=== PATIENT | female | born 1965 | race Caucasian/White ===

== ENCOUNTER 2018-01-25 15:24 | Inpatient (IN) ==
[2018-01-25] MEDS ORDERED: NS 1000 ML 1,000 ML ONE (16:28)
[2018-01-25] MEDS ORDERED: NS 1000 ML 1,000 ML IV ONE (16:46)
[2018-01-25 17:22] LABS: LACTIC ACID 0.9 mmol/L (0.4-2.0)
[2018-01-25 17:26] LABS: BLOOD UREA NITROGEN 11 mg/dL (7-18); CALCIUM 8.2 mg/dL (8.5-10.1); CARBON DIOXIDE 30.6 mmol/L (21-32); CHLORIDE 95 mmol/L (98-107); COR NA(FOR HYPERGLY) 139 mmol/L (136-145); CREATININE 0.83 mg/dL (0.55-1.02); SODIUM 134 mmol/L (136-145); TROPONIN I < 0.02 ng/mL (0-1.5); eGFR NON BLACK RACES > 60 (>60)
[2018-01-25 17:28] LABS: BASOPHILS # (AUTO) 0.1 X10^3/uL (0.0-0.1); BASOPHILS % (AUTO) 0.4 % (0.2-1.0); EOSINOPHILS # (AUTO) 0.2 x10^3/uL (0.0-0.2); EOSINOPHILS % (AUTO) 1.6 % (0.9-2.9); HEMATOCRIT 32.6 % (36.0-47.0); HEMOGLOBIN 10.4 g/dL (12.0-16.0); LYMPHOCYTES # (AUTO) 1.2 X10^3/uL (1.3-2.9); LYMPHOCYTES % (AUTO) 9.1 % (21.0-51.0); MEAN CORPUSCULAR HEMOGLOBIN 24.1 pg (27.0-34.0); MEAN CORPUSCULAR HGB CONC 31.9 g/dL (33.0-35.0); MEAN CORPUSCULAR VOLUME 75.4 fL (80.0-100.0); MEAN PLATELET VOLUME 7.8 fL (7.4-11.0); MONOCYTES # (AUTO) 0.5 x10^3/uL (0.3-0.8); NEUTROPHILS # (AUTO) 11.2 x10^3/uL (2.2-4.8); NEUTROPHILS % (AUTO) 84.9 % (42.0-75.0); PLATELET COUNT 471 X10^3/uL (150.0-450.0); RED BLOOD COUNT 4.33 X10^6/uL (3.5-5.4); WHITE BLOOD COUNT 13.2 X10^3/uL (3.6-10.0)
[2018-01-25 17:30] LABS: ALANINE AMINOTRANSFERASE 15 Units/L (12-78); ALBUMIN 2.1 g/dL (3.4-5.0); ALKALINE PHOSPHATASE 160 Units/L (46-116); ASPARTATE AMINO TRANSFERASE 28 Units/L (15-37); CKMB % 9.1 % (<4); COR CA(FOR HYPOALB) 9.7 mg/dL (8.5-10.1); CREATINE KINASE 11 Units/L (26-192); CREATINE KINASE MB < 1.0 ng/mL (0-4.0); TOTAL PROTEIN 7.9 g/dL (6.4-8.2)
--- NOTE | 2018-01-25 17:31 | DR.GENAD ---
HPI - PCP Primary Care Physician: BALBINA - HPI Comment HPI Comment: PAIN ASSOCIATED WITH WEAKNESS, SOB AND FEVER ON AND OFF. - Complaint/Symptoms Chief Complaint Doctors Comments: ABDOMINAL PAIN, RUQ LIVER CA/MAA, GENERALIZE WEAKNESS WORSE TIMES 2 DAYS. Chief Complaint:: FAMILY STATES PT IS UNABLE TO EAT OR DRINK. PATIENT HAS GENERALIZED PAIN. PATIENT CURRENTLY HAS LIVER CANCER. - Nurses notes reviewed Nurses Notes Review: Yes - Source History Provided: Patient - Mode of Arrival Mode of Arrival: Wheelchair - Timing Onset of Chief Complaint: 12/23/17 Came on: Gradually - Duration Duration: Constant Duration: Days - Severity Severity: Moderate PMH - PMH Past Medical History: Yes Past Medical History: Diabetes, Hypertension Past Medical History Comment: LIVER CANCER, TIA Past Surgical History: Yes Surgical History: Angioplasty/Stents, Cholecystectomy Past Surgical History Comment: TUBAL LIGATION, TUMOR RESECTION IN COLON, - Family History History of Family Medical Conditions: Yes Family Medical History: Diabetes Mellitus, Cancer, [place] - Social History Type of Tobacco Use: Cigarettes Do you use any recreational Drugs:: No - infectious screening In the last 2 months have you had wt loss of >10#?: YES Have you had fever, night sweats or hemotysis?: Yes Have you traveled outside the country in the last 6 months?: No ROS - Review of Systems Constitutional: No Symptoms Reported Eyes: No Symptoms Reported ENTM: No Symptoms Reported Respiratoy: No Symptoms Reported, Non-Productive Cough, Short of Breath Cardiovascular: Chest Pain Gastrointestinal/Abdominal: Abdominal Pain, Nausea Genitourinary: Pain Neurological: No Symptoms Reported Musculoskeletal: Muscle Pain Integumentary: Change in Color, Juandice Hematologic/Lymphatic: No Symptoms Reported Endocrine: No Symptoms Reported All Other Systems: Reviewed and Negative PE - General Limitations: No Limitations General Appearance: Alert - Head Head Exam: Normal Inspection - Eyes Eye exam: Normal Appearance - ENT ENT Exam: Normal External Ear Exam External Ear Exam: Normal External Inspection TM/Canal Exam: Bilateral Normal Nose Exam: Normal Nose Exam Mouth Exam: Normal Inspection Throat Exam: Tonsillar Erythema. negative: Tonsillomegaly, Tonsillar Exudate - Neck Neck Exam: Trachea Midline - Chest Chest Inspection: Symmetric Chest Wall Rise - Respiratory Respiratory Exam: Bilateral Wheezing, Bilateral Rhonchi, Upper Wheezing, Upper Rhonchi, Lower Wheezing, Lower Rhonchi - Cardiovascular Cardiovascular Exam: Regular Rate, Normal Rhythm, Normal Heart Sounds - Abdominal Exam Abdominal Exam: Normal Bowel Sounds, Soft, Tenderness Abdominal Tenderness: RUQ, Diffuse, Moderate - Extremities Extremities Exam: Normal Inspection - Back Back Exam: Normal Inspection - Neurologic Neurological Exam: Alert - Psychiatric Psychiatric Exam: Normal Affect - Skin Skin Exam: Erythema - Vital Signs Vitals: Temperature 98.9 F Pulse Rate [Right Brachial] 87 Pulse Rate [Left Brachial] 85 Pulse Rate 86 Respiratory Rate 20 Blood Pressure [Right Arm] 137/61 Blood Pressure 137/63 O2 Sat by Pulse Oximetry 93 MDM - Additional Information Additional Information Obtained From: Family - Differential Diagnosis Differential Diagnosis: ABDOMINAL PAIN, DEHYDRATION, BOWEL OBTRUCTION, Course - Treatment Treatment: SEE ORDERS. - Education/Counseling Education/Counseling: Patient, Education Educated On: Treatment, Diagnosis ROR - Labs Reviewed Laboratory Results Reviewed?: Yes Result Diagrams: 01/30/18 04:45 01/30/18 04:45 - XRAY XRAY Interpreted by: Radiologist XRAY Findings: REPORT DISCUSS WITH PATIENT AND FAMILY. - EKG Rhythm: NSR (EKG NOTED.) - Labs Reviewed Laboratory: 01/27/18 00:52 Blood Blood Culture - Final 01/27/18 00:29 Blood Blood Culture - Final 01/25/18 16:37 Blood Blood Culture - Final 01/25/18 16:35 Blood Blood Culture - Final WBC 14.8 X10^3/uL (3.6-10.0) H 01/30/18 04:45 RBC 3.72 X10^6/uL (3.5-5.4) 01/30/18 04:45 Hgb 9.0 g/dL (12.0-16.0) L 01/30/18 04:45 Hct 28.1 % (36.0-47.0) L 01/30/18 04:45 MCV 75.6 fL (80.0-100.0) L 01/30/18 04:45 MCH 24.2 pg (27.0-34.0) L 01/30/18 04:45 MCHC 32.0 g/dL (33.0-35.0) L 01/30/18 04:45 RDW 16.8 % (11.6-16.5) H 01/30/18 04:45 Plt Count 441 X10^3/uL (150.0-450.0) 01/30/18 04:45 Plt Count Comment Adequate (ADEQUATE) 01/30/18 04:45 MPV 7.6 fL (7.4-11.0) 01/30/18 04:45 Neut % (Auto) 83.7 % (42.0-75.0) H 01/30/18 04:45 Lymph % (Auto) 8.6 % (21.0-51.0) L 01/30/18 04:45 [place] % (Auto) 4.3 % (0.0-13.0) 01/30/18 04:45 Eos % (Auto) 2.8 % (0.9-2.9) 01/30/18 04:45 Baso % (Auto) 0.6 % (0.2-1.0) 01/30/18 04:45 Neut # (Auto) 12.4 x10^3/uL (2.2-4.8) H 01/30/18 04:45 Lymph # (Auto) 1.3 X10^3/uL (1.3-2.9) 01/30/18 04:45 [place] # (Auto) 0.6 x10^3/uL (0.3-0.8) 01/30/18 04:45 Eos # (Auto) 0.4 x10^3/uL (0.0-0.2) H 01/30/18 04:45 Baso # (Auto) 0.1 X10^3/uL (0.0-0.1) 01/30/18 04:45 Absolute Nucleated RBC 0.0 /100WBC 01/30/18 04:45 Plt Morphology Comment Normal (NORMAL) 01/30/18 04:45 RBC Morphology Normal (NORMAL) 01/30/18 04:45 Anisocytosis 1+ A 01/25/18 16:35 Microcytosis 1+ A 01/25/18 16:35 Sodium 136 mmol/L (136-145) 01/30/18 04:45 Corrected Sodium 138 mmol/L (136-145) 01/30/18 04:45 Potassium 4.0 mmol/L (3.5-5.1) 01/30/18 04:45 Chloride 99 mmol/L (98-107) 01/30/18 04:45 Carbon Dioxide 30.4 mmol/L (21-32) 01/30/18 04:45 BUN 10 mg/dL (7-18) 01/30/18 04:45 Creatinine 0.76 mg/dL (0.55-1.02) 01/30/18 04:45 Est GFR (MDRD) Af Amer > 60 (>60) 01/30/18 04:45 Est GFR (MDRD) Non-Af > 60 (>60) 01/30/18 04:45 Glucose 164 mg/dL (65-99) H 01/30/18 04:45 POC Glucose (mg/dL) 274 mg/dL (65-99) H 01/30/18 11:52 Lactic Acid 1.1 mmol/L (0.4-2.0) 01/29/18 10:30 Calcium 8.4 mg/dL (8.5-10.1) L 01/30/18 04:45 Corrected Calcium 10.2 mg/dL (8.5-10.1) H 01/30/18 04:45 Total Bilirubin 0.30 mg/dL (0.2-1.0) 01/30/18 04:45 AST 15 Units/L (15-37) 01/30/18 04:45 ALT 12 Units/L (12-78) 01/30/18 04:45 Alkaline Phosphatase 156 Units/L (46-116) H 01/30/18 04:45 Creatine Kinase < 7 Units/L (26-192) L 01/26/18 09:55 CK-MB (CK-2) < 1.0 ng/mL (0-4.0) 01/26/18 09:55 CK/CKMB % Calc 10.0 % (<4) 01/26/18 09:55 Troponin I < 0.02 ng/mL (0-1.5) 01/26/18 09:55 Total Protein 6.9 g/dL (6.4-8.2) 01/30/18 04:45 Albumin 1.7 g/dL (3.4-5.0) L 01/30/18 04:45 Globulin 5.2 g/dL (2.5-4.5) H 01/30/18 04:45 Albumin/Globulin Ratio 0.3 Ratio (1.1-2.1) L 01/30/18 04:45 Triglycerides 107 mg/dL (0-150) 01/26/18 05:40 Cholesterol 110 mg/dL (0-200) 01/26/18 05:40 LDL Cholesterol, Calc 75 mg/dL (0-100) 01/26/18 05:40 HDL Cholesterol 14 mg/dL (40-60) L 01/26/18 05:40 Cholesterol/HDL Ratio 7.9 (0.0-5.0) H 01/26/18 05:40 Amylase 12 Units/L (25-115) L 01/25/18 16:35 Lipase 66 Units/L (73-393) L 01/25/18 16:35 Specimen Type Clean catch urine 01/25/18 18:05 Urine Color [place] (YELLOW) 01/25/18 18:05 Urine Appearance Hazy (CLEAR) 01/25/18 18:05 Urine RBC 3-5 /HPF (NONE SEEN) 01/25/18 18:05 Urine WBC 0-2 /HPF (NONE SEEN) 01/25/18 18:05 Ur Squamous Epith Cells Few /HPF (NEGATIVE) 01/25/18 18:05 Calcium Oxalate Crystal Many /HPF (NEGATIVE) 01/25/18 18:05 Urine Bacteria Trace /HPF (NEGATIVE) 01/25/18 18:05 Ur Culture Indicated? No/not indicated 01/25/18 18:05 Stool Description 200g solid brown 01/30/18 07:44 Stl Occult Blood (IFOB) Negative (NEGATIVE) 01/30/18 07:44 Stool for White Cells Negative (NEGATIVE) 01/30/18 07:44 - Diagnosis Discharge Problem: Dehydration Abdominal pain Qualifiers: Abdominal location: generalized Qualified Code(s): R10.84 - Generalized abdominal pain Abdominal mass Qualifiers: Abdominal location: right upper quadrant Qualified Code(s): R19.01 - Right upper quadrant abdominal swelling, mass and lump - Discharge Plan Disposition: ADMITTED INPATIENT Condition: Stable
[2018-01-25] MEDS ORDERED: TORADOL 30 MG VIAL IVP ONE (17:32)
[2018-01-25] MEDS ORDERED: PEPCID 20 MG IV PREMIX* 20 MG/50 ML BAG IV ONE ×2 (17:32→17:37)
[2018-01-25] MEDS ORDERED: PHENERGAN INJ 25 MG IVP ONE (17:32)
[2018-01-25] MEDS ORDERED: PHENERGAN INJ 25 MG ONE (17:37)
[2018-01-25] MEDS ORDERED: TORADOL 30 MG VIAL ONE (17:37)
[2018-01-25 17:43] LABS: ANISOCYTOSIS 1+; MICROCYTOSIS 1+; PLATELET MORPHOLOGY COMMENT NORMAL (NORMAL)
[2018-01-25 17:45] LABS: AMYLASE 12 Units/L (25-115); LIPASE 66 Units/L (73-393)
--- NOTE | 2018-01-25 18:21 | RAD ---
Examination: Portable AP chest History: Generalized pain, liver cancer Comparison reference 12/15/2013 Findings: Continued normal heart size with no significant pulmonary, pleural or hilar lesion demonstr ated. Impression: No change; no acute findings demonstrated. Reported By:
[2018-01-25 19:03] LABS: APPEARANCE,URINE HAZY (CLEAR); BACTERIA,URINE TRACE /HPF (NEGATIVE); CALCIUM OXALATE CRYSTALS,UR MANY /HPF (NEGATIVE); COLOR,URINE ORANGE (YELLOW); SQUAMOUS EPITHELIAL CELL,UR FEW /HPF (NEGATIVE)
--- NOTE | 2018-01-25 19:39 | CT ---
HISTORY: Dizziness, dehydrated, weakness, decreased p.o. intake, known malignancy Study: CT abdomen and pelvis without contrast Comparison: February 15, 2013 Technique: Multiple axial images of the abdomen and pelvis were obtained from the lung bases to the pubic symphysis without the administration of IV contrast. AEC was utilized. Findings: The visualized portions of the lung bases are unremarkable. Left hepatic lobe low-attenuation lesion has decreased in size measuring 3.8 cm on today's exam and 3.7 cm on the prior with low-attenuation change and calcification versus postsurgical material noted. There is a persistent ill-defined low-at tenuation lesion within the right hepatic lobe as well. The spleen is enlarged. The patient is status post cholecystectomy. There is left renal atrophy with chronic hydronephrosis. There is probable com pensatory hypertrophy of the right kidney but which is not fully evaluated on this noncontrast exam. Right adrenal nodule has enlarged measuring 2.6 cm on the current and measuring 1.6 cm on the prior. Additionally, there is heterogeneous asymmetric right posterior abdominal wall intramuscular soft tis onofre thickening measuring approximately 11.5 x 8.9 x 4.9 cm in greatest craniocaudal, transverse, and AP dimensions respectively which could reflect a solid abdominal wall mass in the setting of malignan cy. If there are clinical signs and symptoms of infection, intramuscular abscess is not excluded. In the setting of trauma or quite uropathy, intramuscular hematoma would also be a differential consider ation. There is right-sided perinephric stranding and fluid. No significant mesenteric or retroperit castro lymphadenopathy can be observed. There is no pneumoperitoneum. Multiple ventral abdominal wall mesenteric fat containing hernia defects are noted. There is an aortoiliac stent with bilateral josiane c vein stents also noted. Additionally, stents are noted extending into the right external iliac and common femoral arteries. Trace free fluid is noted within the pelvis. There are scattered colonic di verticula without pericolonic inflammation. There are postsurgical changes in the right lower quadran t. The urinary bladder is grossly unremarkable. There are L5 pars defects with spondylolisthesis. IMPRESSION: Stable to improved findings of malignancy within the liver but with an enlarging right adrenal mass a s well as interval development of a large right posterior abdominal wall/flank soft tissue mass versu s intramuscular fluid collection as above. Multiple mesenteric fat containing hernia defects. Left renal atrophy and probable compensatory hypertrophy of the right kidney. Patient may benefit fro m renal ultrasound which may also allow further evaluation of the intramuscular findings and determin ation if the findings are cystic or solid. Other incidental findings as above. Reported By:
[2018-01-25] MEDS ORDERED: ZOFRAN INJ 4 MG VIAL IVP ONE (22:06)
[2018-01-25 23:28] LABS: CKMB % 12.5 % (<4); CREATINE KINASE 8 Units/L (26-192); CREATINE KINASE MB < 1.0 ng/mL (0-4.0); TROPONIN I < 0.02 ng/mL (0-1.5)
[2018-01-25] MEDS: NICOTINE PATCH TD SCH (23:45)
[2018-01-25] MEDS: DEMEROL INJ IVP PRN (23:45)
[2018-01-26] MEDS: NS 1000 ML 1,000 ML IV SCH ×2 (00:12→17:40)
[2018-01-26 00:37] VITALS: BMI 21.6
[2018-01-26] MEDS: PHENERGAN INJ 25 MG IV PRN (01:08)
[2018-01-26] MEDS: DEMEROL INJ IVP PRN ×2 (05:36→11:55)
[2018-01-26 06:27] LABS: ALANINE AMINOTRANSFERASE 12 Units/L (12-78); ALBUMIN 1.8 g/dL (3.4-5.0); ALKALINE PHOSPHATASE 139 Units/L (46-116); ASPARTATE AMINO TRANSFERASE 12 Units/L (15-37); BLOOD UREA NITROGEN 13 mg/dL (7-18); CALCIUM 7.7 mg/dL (8.5-10.1); CHLORIDE 98 mmol/L (98-107); CHOL/HDL RATIO 7.9 (0.0-5.0); CHOLESTEROL 110 mg/dL (0-200); CKMB % 12.5 % (<4); COR CA(FOR HYPOALB) 9.5 mg/dL (8.5-10.1); COR NA(FOR HYPERGLY) 141 mmol/L (136-145); CREATINE KINASE 8 Units/L (26-192); CREATINE KINASE MB < 1.0 ng/mL (0-4.0); CREATININE 0.79 mg/dL (0.55-1.02); HDL CHOLESTEROL 14 mg/dL (40-60); SODIUM 136 mmol/L (136-145); TRIGLYCERIDES 107 mg/dL (0-150); TROPONIN I < 0.02 ng/mL (0-1.5); eGFR NON BLACK RACES > 60 (>60)
[2018-01-26 06:32] LABS: BASOPHILS # (AUTO) 0.1 X10^3/uL (0.0-0.1); BASOPHILS % (AUTO) 0.6 % (0.2-1.0); EOSINOPHILS # (AUTO) 0.3 x10^3/uL (0.0-0.2); EOSINOPHILS % (AUTO) 2.3 % (0.9-2.9); HEMATOCRIT 29.7 % (36.0-47.0); HEMOGLOBIN 9.6 g/dL (12.0-16.0); LYMPHOCYTES # (AUTO) 1.4 X10^3/uL (1.3-2.9); LYMPHOCYTES % (AUTO) 11.1 % (21.0-51.0); MEAN CORPUSCULAR HEMOGLOBIN 24.3 pg (27.0-34.0); MEAN CORPUSCULAR HGB CONC 32.4 g/dL (33.0-35.0); MEAN PLATELET VOLUME 7.6 fL (7.4-11.0); MONOCYTES # (AUTO) 0.6 x10^3/uL (0.3-0.8); MONOCYTES % (AUTO) 4.7 % (0.0-13.0); NEUTROPHILS # (AUTO) 10.3 x10^3/uL (2.2-4.8); NEUTROPHILS % (AUTO) 81.3 % (42.0-75.0); PLATELET COUNT 385 X10^3/uL (150.0-450.0); RED BLOOD COUNT 3.96 X10^6/uL (3.5-5.4); RED CELL DISTRIBUTION WIDTH 16.9 % (11.6-16.5); WHITE BLOOD COUNT 12.7 X10^3/uL (3.6-10.0)
[2018-01-26 06:46] LABS: CARBON DIOXIDE 28.4 mmol/L (21-32); TOTAL PROTEIN 7.1 g/dL (6.4-8.2)
[2018-01-26 07:09] LABS: PLATELET MORPHOLOGY COMMENT NORMAL (NORMAL)
[2018-01-26] MEDS: NICOTINE PATCH TD SCH (08:53)
[2018-01-26 10:42] LABS: CREATINE KINASE < 7 Units/L (26-192); CREATINE KINASE MB < 1.0 ng/mL (0-4.0); TROPONIN I < 0.02 ng/mL (0-1.5)
[2018-01-26] MEDS ORDERED: DULCOLAX SUPPOSITORY 10 MG RECTAL ONE (14:35)
[2018-01-26] MEDS: DILAUDID INJ IVP PRN ×2 (14:55→20:12)
[2018-01-26] MEDS ORDERED: DULCOLAX SUPPOSITORY 10 MG ONE (17:40)
--- NOTE | 2018-01-26 18:10 | DR.H&P ---
H&P - History & Physical for Day of: H&P Date: 01/25/18 - Chief Complaint Chief Complaint: INTRACTABLE ABDOMINAL PAIN, N/V, WEAKNESS - History of Present Illness History of Present Illness: 52 WF ER ADMISSION AFTER PRESENTING WITH FAMILY CO INTRACTABLE ABDOMINAL PAIN N/V, SWOLLEN MASS TO RIGHT FLANK AREA. PT HAS HX OF LIVER CA, UNDER THEN CARE OF DR PELAYO, ONCOLOGIST. FAMILY REPORTS OVER LAST 3 -4 WEEKS PT HAS HAD CO ABDOMINAL PAIN, 30LBS WEIGHT LOSS AND DIFFUSE WEAKNESS. PT HAD CT ABD PELVIS IN ER, ELEVATED WBC. ADMITTED FOR PAIN CONTROL AND EVALUATION OF ABDOMINAL PAIN - Past Medical History Past Medical History: Anxiety, Arthritis, Diabetes, Hypertension - Past Surgical History Surgical History: Angioplasty/Stents, Cholecystectomy - Family History Family Medical History: Diabetes Mellitus, Cancer, [place] - Social History Does patient currently use any type of tobacco product: Yes Have you used tobacco products in the last 12 months: Yes Type of Tobacco Use: Cigarettes How many years tobacco product used: 35 Alcohol Use: None Drug Use: None - Medications Home Medications: amoxicillin 1 tab PO DAILY 01/25/18 [History Confirmed 01/25/18] aripiprazole 1 tab PO DAILY 01/25/18 [History Confirmed 01/25/18] cyanocobalamin (vitamin B-12) [Vitamin B-12] 1 tab PO DAILY 01/25/18 [History Confirmed 01/25/18] cyclobenzaprine 1 tab PO BID 01/25/18 [History Confirmed 01/25/18] cyproheptadine 1 tab PO AC 01/25/18 [History Confirmed 01/25/18] gabapentin [Neurontin] 1 tab PO QID 01/25/18 [History Confirmed 01/25/18] ibuprofen [Motrin IB] 800 mg PO Q6HR PRN 01/25/18 [History Confirmed 01/25/18] lisinopril 1 tab PO DAILY 01/25/18 [History Confirmed 01/25/18] ranitidine HCl [Zantac] 1 tab PO BID PRN 01/25/18 [History Confirmed 01/25/18] sertraline 1 tab PO DAILY 01/25/18 [History Confirmed 01/25/18] - Review of Systems Constitutional: Weakness, Malaise Eyes: No Symptoms Reported ENT: No Symptoms Reported Respiratory: SOB with Excertion Cardiovascular: Edema. denies: Chest Pain Gastrointestinal: Nausea, Vomiting, Abdominal Pain Genitourinary: No Symptoms Reported Musculoskeletal: Back Pain Skin: No Symptoms Reported Neurological: No Symptoms Reported - Physical Exam Vital Signs: Temperature 99.5 F Pulse Rate [Right Brachial] 88 Pulse Rate [Left Brachial] 85 Pulse Rate 86 Respiratory Rate 18 Blood Pressure [Right Arm] 147/61 Blood Pressure 137/63 O2 Sat by Pulse Oximetry 93 Oriented: Normal Eyes: Normal Ear: Normal Nose: Normal Throat: Dry Respiratory: RLL Diminished, LLL Diminished Cardiovascular: Normal : Normal Auscultation: Bowel Sounds: Decreased Palpation: Other (GOLF BALL SIZE PALPABLE MASS TO RIGHT RETROPERITONEAL AREA) Tenderness: Diffuse Skin: Decreased Turgur Musculoskeletal: Back:Thoracic, Back:Lumbar Affect: Anxious Speech Pattern: Clear, Appropriate - Assessment/Plan (1) Abdominal pain Status: Active Plan: ADMIT, PAIN AND NAUSEA CONTROL. BS MONITORING, BLOOD SUGAR AND BLOOD PRESSURE CONTROL. AMYLASE AND LIPASE ON ADMISSION. CT ABD PELVIS ON ADMISSION , REPEAT AM LABS. VERIFY HOME MEDS, RENAL US (2) Nausea & vomiting Status: Acute (3) Diabetes Status: Acute (4) Malignant neoplasm of liver Status: Acute (5) Retroperitoneal mass Status: Acute - Allergies Allergies/Adverse Reactions: Allergies Allergy/AdvReac Type Severity Reaction Status Date / Time acetaminophen Allergy Verified 01/25/18 16:46 morphine Allergy Verified 01/25/18 16:46 oxycodone Allergy Verified 01/25/18 16:46
--- NOTE | 2018-01-26 18:17 | PCM.PROG ---
Progress Note - Progress Note for Day of Date: 01/26/18 - Subjective Subjective: ABDOMINAL PAIN, CURRENTLY NON CONTROLLED WITH DEMEROL IV, RENAL US ORDERED. PT CO LOWER BACK PAIN AND UNABLE TO EAT, FAMILY REPORTS PT HAS HAD A 30LB WEIGHT LOSS - Past Medical Family Social History Past Med/Fam/Surg Hx: No changes since H&P Allergies: Allergies acetaminophen Allergy (Verified 01/25/18 16:46) morphine Allergy (Verified 01/25/18 16:46) oxycodone Allergy (Verified 01/25/18 16:46) - Review of Systems ROS: No change since H&P - Vital Signs and I&O's Vital Signs: Temperature 99.5 F Pulse Rate [Right Brachial] 88 Pulse Rate [Left Brachial] 85 Pulse Rate 86 Respiratory Rate 18 Blood Pressure [Right Arm] 147/61 Blood Pressure 137/63 O2 Sat by Pulse Oximetry 93 Intake and Output: Intake & Output 01/24/18 01/25/18 01/26/18 01/27/18 11:59 11:59 11:59 11:59 Intake Total 840 / 840 Output Total / Balance 836 / 836 - Physical Exam Oriented: Normal Eyes: Normal Ear: Normal Nose: Normal Throat: Dry Respiratory: Diminished Cardiovascular: Normal : Normal Auscultation: Bowel Sounds: Decreased Tenderness: Diffuse Skin: Decreased Turgur Musculoskeletal: Back:Thoracic, Back:Lumbar Affect: Anxious Speech Pattern: Clear, Appropriate - Laboratory and Diagnostics Result Diagrams: 01/26/18 05:40 01/26/18 05:40 Labs: Laboratory WBC 12.7 X10^3/uL (3.6-10.0) H 01/26/18 05:40 RBC 3.96 X10^6/uL (3.5-5.4) 01/26/18 05:40 Hgb 9.6 g/dL (12.0-16.0) L 01/26/18 05:40 Hct 29.7 % (36.0-47.0) L 01/26/18 05:40 MCV 75.0 fL (80.0-100.0) L 01/26/18 05:40 MCH 24.3 pg (27.0-34.0) L 01/26/18 05:40 MCHC 32.4 g/dL (33.0-35.0) L 01/26/18 05:40 RDW 16.9 % (11.6-16.5) H 01/26/18 05:40 Plt Count 385 X10^3/uL (150.0-450.0) 01/26/18 05:40 Plt Count Comment Adequate (ADEQUATE) 01/26/18 05:40 MPV 7.6 fL (7.4-11.0) 01/26/18 05:40 Neut % (Auto) 81.3 % (42.0-75.0) H 01/26/18 05:40 Lymph % (Auto) 11.1 % (21.0-51.0) L 01/26/18 05:40 [place] % (Auto) 4.7 % (0.0-13.0) 01/26/18 05:40 Eos % (Auto) 2.3 % (0.9-2.9) 01/26/18 05:40 Baso % (Auto) 0.6 % (0.2-1.0) 01/26/18 05:40 Neut # (Auto) 10.3 x10^3/uL (2.2-4.8) H 01/26/18 05:40 Lymph # (Auto) 1.4 X10^3/uL (1.3-2.9) 01/26/18 05:40 [place] # (Auto) 0.6 x10^3/uL (0.3-0.8) 01/26/18 05:40 Eos # (Auto) 0.3 x10^3/uL (0.0-0.2) H 01/26/18 05:40 Baso # (Auto) 0.1 X10^3/uL (0.0-0.1) 01/26/18 05:40 Absolute Nucleated RBC 0.0 /100WBC 01/26/18 05:40 Plt Morphology Comment Normal (NORMAL) 01/26/18 05:40 RBC Morphology Normal (NORMAL) 01/26/18 05:40 Anisocytosis 1+ A 01/25/18 16:35 Microcytosis 1+ A 01/25/18 16:35 Sodium 136 mmol/L (136-145) 01/26/18 05:40 Corrected Sodium 141 mmol/L (136-145) 01/26/18 05:40 Potassium 4.5 mmol/L (3.5-5.1) 01/26/18 05:40 Chloride 98 mmol/L (98-107) 01/26/18 05:40 Carbon Dioxide 28.4 mmol/L (21-32) 01/26/18 05:40 BUN 13 mg/dL (7-18) 01/26/18 05:40 Creatinine 0.79 mg/dL (0.55-1.02) 01/26/18 05:40 Est GFR (MDRD) Af Amer > 60 (>60) 01/26/18 05:40 Est GFR (MDRD) Non-Af > 60 (>60) 01/26/18 05:40 Glucose 297 mg/dL (65-99) H 01/26/18 05:40 Lactic Acid 0.9 mmol/L (0.4-2.0) 01/25/18 16:35 Calcium 7.7 mg/dL (8.5-10.1) L 01/26/18 05:40 Corrected Calcium 9.5 mg/dL (8.5-10.1) 01/26/18 05:40 Total Bilirubin 0.30 mg/dL (0.2-1.0) 01/26/18 05:40 AST 12 Units/L (15-37) L 01/26/18 05:40 ALT 12 Units/L (12-78) 01/26/18 05:40 Alkaline Phosphatase 139 Units/L (46-116) H 01/26/18 05:40 Creatine Kinase < 7 Units/L (26-192) L 01/26/18 09:55 CK-MB (CK-2) < 1.0 ng/mL (0-4.0) 01/26/18 09:55 CK/CKMB % Calc 10.0 % (<4) 01/26/18 09:55 Troponin I < 0.02 ng/mL (0-1.5) 01/26/18 09:55 Total Protein 7.1 g/dL (6.4-8.2) 01/26/18 05:40 Albumin 1.8 g/dL (3.4-5.0) L 01/26/18 05:40 Globulin 5.3 g/dL (2.5-4.5) H 01/26/18 05:40 Albumin/Globulin Ratio 0.3 Ratio (1.1-2.1) L 01/26/18 05:40 Triglycerides 107 mg/dL (0-150) 01/26/18 05:40 Cholesterol 110 mg/dL (0-200) 01/26/18 05:40 LDL Cholesterol, Calc 75 mg/dL (0-100) 01/26/18 05:40 HDL Cholesterol 14 mg/dL (40-60) L 01/26/18 05:40 Cholesterol/HDL Ratio 7.9 (0.0-5.0) H 01/26/18 05:40 Amylase 12 Units/L (25-115) L 01/25/18 16:35 Lipase 66 Units/L (73-393) L 01/25/18 16:35 Specimen Type Clean catch urine 01/25/18 18:05 Urine Color [place] (YELLOW) 01/25/18 18:05 Urine Appearance Hazy (CLEAR) 01/25/18 18:05 Urine RBC 3-5 /HPF (NONE SEEN) 01/25/18 18:05 Urine WBC 0-2 /HPF (NONE SEEN) 01/25/18 18:05 Ur Squamous Epith Cells Few /HPF (NEGATIVE) 01/25/18 18:05 Calcium Oxalate Crystal Many /HPF (NEGATIVE) 01/25/18 18:05 Urine Bacteria Trace /HPF (NEGATIVE) 01/25/18 18:05 Ur Culture Indicated? No/not indicated 01/25/18 18:05 - Plan (1) Abdominal pain Status: Active Plan: PAIN AND NAUSEA CONTROL. BS MONITORING, BLOOD SUGAR AND BLOOD PRESSURE CONTROL. AMYLASE AND LIPASE ON ADMISSION. CT ABD PELVIS ON ADMISSION, REPEAT AM LABS. VERIFY HOME MEDS, RENAL US (2) Nausea & vomiting Status: Acute (3) Diabetes Status: Acute (4) Malignant neoplasm of liver Status: Acute (5) Retroperitoneal mass Status: Acute (6) Back pain Status: Acute Plan: MRI T AND L SPINE RO METASTATIC DISEASE. PAIN CONTROL
[2018-01-26] MEDS: COLACE SYRUP 100 MG UDC PO SCH (20:11)
[2018-01-26] MEDS: MILK OF MAGNESIA PO SCH (20:12)
[2018-01-26] MEDS ORDERED: COLACE CAP 100 MG PO SCH (21:00)
[2018-01-26] MEDS ORDERED: MILK OF MAGNESIA PO SCH (21:00)
--- NOTE | 2018-01-26 21:25 | US ---
HISTORY: Abdominal pain. Study: Renal ultrasound. Comparison: Abnormal CT findings. Technique: Multiple carrasco scale and color flow Doppler images of the kidneys were obtained. The regio n of the urinary bladder was evaluated as well. Findings: The right kidney demonstrates normal echogenicity without cortical thinning, hydronephrosis or nephrolithiasis. The right kidney measures 13.6 x 6.5 x 7.5 cm. No solid or cystic lesion of the right kidney is demonstrated. There is vascular flow in the right kidney on Doppler interrogation. The left kidney is small in size and demonstrates moderate hydronephrosis with cortical thinning. The left kidney measures 8.5 x 4.0 x 2.8 cm. There is no nephrolithiasis. No solid or cystic lesion of t he left kidney is demonstrated. There is vascular flow in the left kidney on Doppler interrogation. The region of the urinary bladder is grossly unremarkable. The soft tissue mass involving in the post erior right flank on the comparison CT is not demonstrated on the current exam. IMPRESSION: 1. Hydronephrosis and atrophic changes of the left kidney similar to the comparison CT. 2. Unremarkable sonographic evaluation of the right kidney. Reported By:
[2018-01-27] MEDS ORDERED: TYLENOL 325 MG TAB PO PRN (00:16)
[2018-01-27] MEDS: DILAUDID INJ IVP PRN ×6 (00:20→22:00)
[2018-01-27] MEDS: MOTRIN TAB 600 MG PO PRN (00:31)
[2018-01-27] MEDS: NS 1000 ML 1,000 ML IV SCH ×2 (02:40→13:58)
[2018-01-27 09:21] LABS: BASOPHILS # (AUTO) 0.1 X10^3/uL (0.0-0.1); BASOPHILS % (AUTO) 0.7 % (0.2-1.0); EOSINOPHILS # (AUTO) 0.2 x10^3/uL (0.0-0.2); EOSINOPHILS % (AUTO) 1.5 % (0.9-2.9); HEMATOCRIT 29.9 % (36.0-47.0); HEMOGLOBIN 9.6 g/dL (12.0-16.0); LYMPHOCYTES # (AUTO) 1.2 X10^3/uL (1.3-2.9); LYMPHOCYTES % (AUTO) 7.4 % (21.0-51.0); MEAN CORPUSCULAR HEMOGLOBIN 24.2 pg (27.0-34.0); MEAN CORPUSCULAR HGB CONC 32.2 g/dL (33.0-35.0); MEAN PLATELET VOLUME 7.6 fL (7.4-11.0); MONOCYTES # (AUTO) 0.8 x10^3/uL (0.3-0.8); MONOCYTES % (AUTO) 5.1 % (0.0-13.0); NEUTROPHILS # (AUTO) 13.7 x10^3/uL (2.2-4.8); NEUTROPHILS % (AUTO) 85.3 % (42.0-75.0); PLATELET COUNT 357 X10^3/uL (150.0-450.0); RED BLOOD COUNT 3.99 X10^6/uL (3.5-5.4)
[2018-01-27 09:35] LABS: ALANINE AMINOTRANSFERASE 8 Units/L (12-78); ALBUMIN 1.8 g/dL (3.4-5.0); ALKALINE PHOSPHATASE 135 Units/L (46-116); ASPARTATE AMINO TRANSFERASE 14 Units/L (15-37); BLOOD UREA NITROGEN 11 mg/dL (7-18); CALCIUM 7.8 mg/dL (8.5-10.1); CARBON DIOXIDE 31.7 mmol/L (21-32); CHLORIDE 97 mmol/L (98-107); COR CA(FOR HYPOALB) 9.6 mg/dL (8.5-10.1); COR NA(FOR HYPERGLY) 138 mmol/L (136-145); CREATININE 0.67 mg/dL (0.55-1.02); SODIUM 134 mmol/L (136-145); eGFR NON BLACK RACES > 60 (>60)
[2018-01-27 09:36] LABS: PLATELET MORPHOLOGY COMMENT NORMAL (NORMAL)
[2018-01-27] MEDS: NICOTINE PATCH TD SCH ×2 (09:51→22:00)
[2018-01-27] MEDS: MILK OF MAGNESIA PO SCH ×2 (09:52→21:20)
[2018-01-27] MEDS: PROTONIX INJ 40 MG VIAL IVP SCH (09:53)
[2018-01-27] MEDS: PHENERGAN INJ 25 MG IV PRN ×2 (09:59→16:50)
[2018-01-27] MEDS ORDERED: NS 100 ML IV + SPIKE MINIBAG* 100 ML IV ONE (13:44)
[2018-01-27] MEDS: ZOSYN VIAL 3.375 GRAMS IV SCH ×2 (13:58→22:00)
--- NOTE | 2018-01-27 17:44 | PCM.PROG ---
Progress Note - Progress Note for Day of Date: 01/27/18 - Subjective Subjective: ABDOMINAL PAIN IMPROVED THIS AM AFTER STARTING DILAUDID, PT CONTINUES TO CO FOOD INTOLERANCE, WILL NOT EAT PER FAMILY. PT SPIKED FEVER DURING THIS NIGHT, HAS MRI BACK ORDERED FOR THIS AM. PT HAD BLOOD CULTURES COLLECTED, WILL START ON ZOSYN IV - Past Medical Family Social History Past Med/Fam/Surg Hx: No changes since H&P Allergies: Allergies acetaminophen Allergy (Verified 01/25/18 16:46) morphine Allergy (Verified 01/25/18 16:46) oxycodone Allergy (Verified 01/25/18 16:46) - Review of Systems ROS: No change since H&P - Vital Signs and I&O's Vital Signs: Temperature 98.0 F Pulse Rate [Right Brachial] 88 Pulse Rate [Left Brachial] 91 Pulse Rate 86 Respiratory Rate 18 Blood Pressure [Right Arm] 147/65 Blood Pressure 137/63 O2 Sat by Pulse Oximetry 94 Intake and Output: Intake & Output 01/25/18 01/26/18 01/27/18 01/28/18 11:59 11:59 11:59 11:59 Intake Total 2800 / 2800 1600 / 1600 Output Total 4 / 4 Balance 2796 / 2796 1600 / 1600 - Physical Exam Oriented: Normal Eyes: Normal Ear: Normal Nose: Normal Throat: Dry Respiratory: Diminished Cardiovascular: Normal : Normal Auscultation: Bowel Sounds: Decreased Tenderness: Diffuse, Mild Skin: Decreased Turgur Musculoskeletal: Back:Thoracic, Back:Lumbar Affect: Anxious Speech Pattern: Clear, Appropriate - Laboratory and Diagnostics Result Diagrams: 01/27/18 09:00 01/27/18 09:00 Labs: 01/25/18 16:37 Blood Blood Culture - Preliminary 01/25/18 16:35 Blood Blood Culture - Preliminary Laboratory WBC 16.0 X10^3/uL (3.6-10.0) H 01/27/18 09:00 RBC 3.99 X10^6/uL (3.5-5.4) 01/27/18 09:00 Hgb 9.6 g/dL (12.0-16.0) L 01/27/18 09:00 Hct 29.9 % (36.0-47.0) L 01/27/18 09:00 MCV 75.0 fL (80.0-100.0) L 01/27/18 09:00 MCH 24.2 pg (27.0-34.0) L 01/27/18 09:00 MCHC 32.2 g/dL (33.0-35.0) L 01/27/18 09:00 RDW 17.0 % (11.6-16.5) H 01/27/18 09:00 Plt Count 357 X10^3/uL (150.0-450.0) 01/27/18 09:00 Plt Count Comment Adequate (ADEQUATE) 01/27/18 09:00 MPV 7.6 fL (7.4-11.0) 01/27/18 09:00 Neut % (Auto) 85.3 % (42.0-75.0) H 01/27/18 09:00 Lymph % (Auto) 7.4 % (21.0-51.0) L 01/27/18 09:00 [place] % (Auto) 5.1 % (0.0-13.0) 01/27/18 09:00 Eos % (Auto) 1.5 % (0.9-2.9) 01/27/18 09:00 Baso % (Auto) 0.7 % (0.2-1.0) 01/27/18 09:00 Neut # (Auto) 13.7 x10^3/uL (2.2-4.8) H 01/27/18 09:00 Lymph # (Auto) 1.2 X10^3/uL (1.3-2.9) L 01/27/18 09:00 [place] # (Auto) 0.8 x10^3/uL (0.3-0.8) 01/27/18 09:00 Eos # (Auto) 0.2 x10^3/uL (0.0-0.2) 01/27/18 09:00 Baso # (Auto) 0.1 X10^3/uL (0.0-0.1) 01/27/18 09:00 Absolute Nucleated RBC 0.1 /100WBC 01/27/18 09:00 Plt Morphology Comment Normal (NORMAL) 01/27/18 09:00 RBC Morphology Normal (NORMAL) 01/27/18 09:00 Anisocytosis 1+ A 01/25/18 16:35 Microcytosis 1+ A 01/25/18 16:35 Sodium 134 mmol/L (136-145) L 01/27/18 09:00 Corrected Sodium 138 mmol/L (136-145) 01/27/18 09:00 Potassium 4.0 mmol/L (3.5-5.1) 01/27/18 09:00 Chloride 97 mmol/L (98-107) L 01/27/18 09:00 Carbon Dioxide 31.7 mmol/L (21-32) 01/27/18 09:00 BUN 11 mg/dL (7-18) 01/27/18 09:00 Creatinine 0.67 mg/dL (0.55-1.02) 01/27/18 09:00 Est GFR (MDRD) Af Amer > 60 (>60) 01/27/18 09:00 Est GFR (MDRD) Non-Af > 60 (>60) 01/27/18 09:00 Glucose 267 mg/dL (65-99) H 01/27/18 09:00 Lactic Acid 1.0 mmol/L (0.4-2.0) 01/26/18 18:21 Calcium 7.8 mg/dL (8.5-10.1) L 01/27/18 09:00 Corrected Calcium 9.6 mg/dL (8.5-10.1) 01/27/18 09:00 Total Bilirubin 0.50 mg/dL (0.2-1.0) 01/27/18 09:00 AST 14 Units/L (15-37) L 01/27/18 09:00 ALT 8 Units/L (12-78) L 01/27/18 09:00 Alkaline Phosphatase 135 Units/L (46-116) H 01/27/18 09:00 Creatine Kinase < 7 Units/L (26-192) L 01/26/18 09:55 CK-MB (CK-2) < 1.0 ng/mL (0-4.0) 01/26/18 09:55 CK/CKMB % Calc 10.0 % (<4) 01/26/18 09:55 Troponin I < 0.02 ng/mL (0-1.5) 01/26/18 09:55 Total Protein 7.0 g/dL (6.4-8.2) 06/05/18 09:00 Albumin 1.8 g/dL (3.4-5.0) L 01/27/18 09:00 Globulin 5.2 g/dL (2.5-4.5) H 01/27/18 09:00 Albumin/Globulin Ratio 0.3 Ratio (1.1-2.1) L 01/27/18 09:00 Triglycerides 107 mg/dL (0-150) 01/26/18 05:40 Cholesterol 110 mg/dL (0-200) 01/26/18 05:40 LDL Cholesterol, Calc 75 mg/dL (0-100) 01/26/18 05:40 HDL Cholesterol 14 mg/dL (40-60) L 01/26/18 05:40 Cholesterol/HDL Ratio 7.9 (0.0-5.0) H 01/26/18 05:40 Amylase 12 Units/L (25-115) L 01/25/18 16:35 Lipase 66 Units/L (73-393) L 01/25/18 16:35 Specimen Type Clean catch urine 01/25/18 18:05 Urine Color [place] (YELLOW) 01/25/18 18:05 Urine Appearance Hazy (CLEAR) 01/25/18 18:05 Urine RBC 3-5 /HPF (NONE SEEN) 01/25/18 18:05 Urine WBC 0-2 /HPF (NONE SEEN) 01/25/18 18:05 Ur Squamous Epith Cells Few /HPF (NEGATIVE) 01/25/18 18:05 Calcium Oxalate Crystal Many /HPF (NEGATIVE) 01/25/18 18:05 Urine Bacteria Trace /HPF (NEGATIVE) 01/25/18 18:05 Ur Culture Indicated? No/not indicated 01/25/18 18:05 - Plan (1) Abdominal pain Status: Active Plan: PAIN AND NAUSEA CONTROL. BS MONITORING, BLOOD SUGAR AND BLOOD PRESSURE CONTROL. CT ABD PELVIS ON ADMISSION, REPEAT AM LABS. VERIFY HOME MEDS, RENAL US. BLOOD CULTURES COLLECTED, IV ZOSYN (2) Nausea & vomiting Status: Acute (3) Diabetes Status: Acute (4) Malignant neoplasm of liver Status: Acute (5) Retroperitoneal mass Status: Acute (6) Back pain Status: Acute Plan: MRI T AND L SPINE RO METASTATIC DISEASE. PAIN CONTROL
--- NOTE | 2018-01-27 18:11 | RAD ---
AP chest. Indication: Fever with leukocytosis Comparison: 01/25/2018 Findings: Linear opacity within the right mid lung likely represents subsegmental atelectasis. There is no additional focal airspace opacity identified within either lung. No pleural effusion or pneumot horax. Heart size unchanged. No acute osseous abnormality. Impression: No acute cardiopulmonary abnormality. Suspected subsegmental atelectasis within the right mid lung. Reported By:
[2018-01-27] MEDS ORDERED: NS 100 ML IV 100 ML IV ONE (20:46)
[2018-01-27] MEDS: COLACE SYRUP 100 MG UDC PO SCH (21:20)
[2018-01-28] MEDS: DILAUDID INJ IVP PRN ×6 (01:59→22:47)
[2018-01-28] MEDS: PHENERGAN INJ 25 MG IV PRN ×4 (02:00→22:46)
[2018-01-28] MEDS: NS 1000 ML 1,000 ML IV SCH ×2 (03:19→16:04)
[2018-01-28] MEDS ORDERED: NS 100 ML IV 100 ML IV ONE (05:53)
[2018-01-28] MEDS: ZOSYN VIAL 3.375 GRAMS IV SCH ×3 (06:04→21:04)
[2018-01-28 06:14] LABS: BASOPHILS # (AUTO) 0.1 X10^3/uL (0.0-0.1); BASOPHILS % (AUTO) 0.6 % (0.2-1.0); EOSINOPHILS # (AUTO) 0.4 x10^3/uL (0.0-0.2); EOSINOPHILS % (AUTO) 2.5 % (0.9-2.9); HEMATOCRIT 28.8 % (36.0-47.0); HEMOGLOBIN 9.3 g/dL (12.0-16.0); LYMPHOCYTES # (AUTO) 1.6 X10^3/uL (1.3-2.9); LYMPHOCYTES % (AUTO) 10.5 % (21.0-51.0); MEAN CORPUSCULAR HEMOGLOBIN 24.2 pg (27.0-34.0); MEAN CORPUSCULAR HGB CONC 32.3 g/dL (33.0-35.0); MEAN PLATELET VOLUME 7.7 fL (7.4-11.0); MONOCYTES # (AUTO) 0.8 x10^3/uL (0.3-0.8); MONOCYTES % (AUTO) 5.3 % (0.0-13.0); NEUTROPHILS # (AUTO) 12.4 x10^3/uL (2.2-4.8); NEUTROPHILS % (AUTO) 81.1 % (42.0-75.0); PLATELET COUNT 355 X10^3/uL (150.0-450.0); RED BLOOD COUNT 3.84 X10^6/uL (3.5-5.4); RED CELL DISTRIBUTION WIDTH 17.1 % (11.6-16.5); WHITE BLOOD COUNT 15.3 X10^3/uL (3.6-10.0)
[2018-01-28 06:50] LABS: ALANINE AMINOTRANSFERASE 11 Units/L (12-78); ALBUMIN 1.8 g/dL (3.4-5.0); ALKALINE PHOSPHATASE 132 Units/L (46-116); ASPARTATE AMINO TRANSFERASE 14 Units/L (15-37); BLOOD UREA NITROGEN 10 mg/dL (7-18); CALCIUM 7.8 mg/dL (8.5-10.1); CHLORIDE 97 mmol/L (98-107); COR CA(FOR HYPOALB) 9.6 mg/dL (8.5-10.1); COR NA(FOR HYPERGLY) 137 mmol/L (136-145); CREATININE 0.67 mg/dL (0.55-1.02); SODIUM 133 mmol/L (136-145); eGFR NON BLACK RACES > 60 (>60)
[2018-01-28 06:51] LABS: PLATELET MORPHOLOGY COMMENT NORMAL (NORMAL)
[2018-01-28] MEDS: NICOTINE PATCH TD SCH (09:16)
[2018-01-28] MEDS: MILK OF MAGNESIA PO SCH ×2 (09:16→21:06)
[2018-01-28] MEDS: PROTONIX INJ 40 MG VIAL IVP SCH (09:16)
--- NOTE | 2018-01-28 13:03 | PCM.PROG ---
Progress Note - Progress Note for Day of Date: 01/28/18 - Subjective Subjective: ABDOMINAL PAIN CONTINUE BUT SLIGHTLY IMPROVED AFTER STARTING DILAUDID, PT CONTINUES TO CO FOOD INTOLERANCE, WILL NOT EAT PER FAMILY. PT HAD BLOOD CULTURES COLLECTED, CURRENTLY ON ZOSYN IV. PT CONTINUES TO CO MID AND LOWER BACK PAIN. CT T AND LSPINE ORDERED, AND NM BONE SCAN TO ASSESS FOR METASTATIC DISEASE. - Past Medical Family Social History Past Med/Fam/Surg Hx: No changes since H&P Allergies: Allergies acetaminophen Allergy (Verified 01/25/18 16:46) morphine Allergy (Verified 01/25/18 16:46) oxycodone Allergy (Verified 01/25/18 16:46) - Review of Systems ROS: No change since H&P - Vital Signs and I&O's Vital Signs: Temperature 99.5 F Pulse Rate [Right Brachial] 90 Pulse Rate [Left Brachial] 83 Pulse Rate 86 Respiratory Rate 20 Blood Pressure [Right Arm] 146/63 Blood Pressure 137/63 O2 Sat by Pulse Oximetry 91 Intake and Output: Intake & Output 01/26/18 01/27/18 01/28/18 01/29/18 11:59 11:59 11:59 11:59 Intake Total 2800 / 2800 2760 / 2760 Output Total 4 / 4 0 / 0 Balance 2796 / 2796 2760 / 2760 - Physical Exam Oriented: Normal Eyes: Normal Ear: Normal Nose: Normal Throat: Dry Respiratory: Diminished Cardiovascular: Normal : Normal Auscultation: Bowel Sounds: Decreased Palpation: Other (4CM X 4CM ROUND PALPABLE MASS TO RIGHT FLANK AREA) Tenderness: Diffuse, Mild Skin: Decreased Turgur Musculoskeletal: Back:Thoracic, Back:Lumbar Affect: Anxious Speech Pattern: Clear, Appropriate - Laboratory and Diagnostics Result Diagrams: 01/28/18 05:40 01/28/18 05:40 Labs: 01/25/18 16:37 Blood Blood Culture - Preliminary 01/25/18 16:35 Blood Blood Culture - Preliminary Laboratory WBC 15.3 X10^3/uL (3.6-10.0) H 01/28/18 05:40 RBC 3.84 X10^6/uL (3.5-5.4) 01/28/18 05:40 Hgb 9.3 g/dL (12.0-16.0) L 01/28/18 05:40 Hct 28.8 % (36.0-47.0) L 01/28/18 05:40 MCV 75.0 fL (80.0-100.0) L 01/28/18 05:40 MCH 24.2 pg (27.0-34.0) L 01/28/18 05:40 MCHC 32.3 g/dL (33.0-35.0) L 01/28/18 05:40 RDW 17.1 % (11.6-16.5) H 01/28/18 05:40 Plt Count 355 X10^3/uL (150.0-450.0) 01/28/18 05:40 Plt Count Comment Adequate (ADEQUATE) 01/28/18 05:40 MPV 7.7 fL (7.4-11.0) 01/28/18 05:40 Neut % (Auto) 81.1 % (42.0-75.0) H 01/28/18 05:40 Lymph % (Auto) 10.5 % (21.0-51.0) L 01/28/18 05:40 [place] % (Auto) 5.3 % (0.0-13.0) 01/28/18 05:40 Eos % (Auto) 2.5 % (0.9-2.9) 01/28/18 05:40 Baso % (Auto) 0.6 % (0.2-1.0) 01/28/18 05:40 Neut # (Auto) 12.4 x10^3/uL (2.2-4.8) H 01/28/18 05:40 Lymph # (Auto) 1.6 X10^3/uL (1.3-2.9) 01/28/18 05:40 [place] # (Auto) 0.8 x10^3/uL (0.3-0.8) 01/28/18 05:40 Eos # (Auto) 0.4 x10^3/uL (0.0-0.2) H 01/28/18 05:40 Baso # (Auto) 0.1 X10^3/uL (0.0-0.1) 01/28/18 05:40 Absolute Nucleated RBC 0.0 /100WBC 01/28/18 05:40 Plt Morphology Comment Normal (NORMAL) 01/28/18 05:40 RBC Morphology Normal (NORMAL) 01/28/18 05:40 Anisocytosis 1+ A 01/25/18 16:35 Microcytosis 1+ A 01/25/18 16:35 Sodium 133 mmol/L (136-145) L 01/28/18 05:40 Corrected Sodium 137 mmol/L (136-145) 01/28/18 05:40 Potassium 4.2 mmol/L (3.5-5.1) 01/28/18 05:40 Chloride 97 mmol/L (98-107) L 01/28/18 05:40 Carbon Dioxide 30.0 mmol/L (21-32) 01/28/18 05:40 BUN 10 mg/dL (7-18) 01/28/18 05:40 Creatinine 0.67 mg/dL (0.55-1.02) 01/28/18 05:40 Est GFR (MDRD) Af Amer > 60 (>60) 01/28/18 05:40 Est GFR (MDRD) Non-Af > 60 (>60) 01/28/18 05:40 Glucose 262 mg/dL (65-99) H 01/28/18 05:40 Lactic Acid 1.0 mmol/L (0.4-2.0) 01/26/18 18:21 Calcium 7.8 mg/dL (8.5-10.1) L 01/28/18 05:40 Corrected Calcium 9.6 mg/dL (8.5-10.1) 01/28/18 05:40 Total Bilirubin 0.50 mg/dL (0.2-1.0) 01/28/18 05:40 AST 14 Units/L (15-37) L 01/28/18 05:40 ALT 11 Units/L (12-78) L 01/28/18 05:40 Alkaline Phosphatase 132 Units/L (46-116) H 01/28/18 05:40 Creatine Kinase < 7 Units/L (26-192) L 01/26/18 09:55 CK-MB (CK-2) < 1.0 ng/mL (0-4.0) 01/26/18 09:55 CK/CKMB % Calc 10.0 % (<4) 01/26/18 09:55 Troponin I < 0.02 ng/mL (0-1.5) 01/26/18 09:55 Total Protein 7.0 g/dL (6.4-8.2) 01/28/18 05:40 Albumin 1.8 g/dL (3.4-5.0) L 01/28/18 05:40 Globulin 5.2 g/dL (2.5-4.5) H 01/28/18 05:40 Albumin/Globulin Ratio 0.3 Ratio (1.1-2.1) L 01/28/18 05:40 Triglycerides 107 mg/dL (0-150) 01/26/18 05:40 Cholesterol 110 mg/dL (0-200) 01/26/18 05:40 LDL Cholesterol, Calc 75 mg/dL (0-100) 01/26/18 05:40 HDL Cholesterol 14 mg/dL (40-60) L 01/26/18 05:40 Cholesterol/HDL Ratio 7.9 (0.0-5.0) H 01/26/18 05:40 Amylase 12 Units/L (25-115) L 01/25/18 16:35 Lipase 66 Units/L (73-393) L 01/25/18 16:35 Specimen Type Clean catch urine 01/25/18 18:05 Urine Color [place] (YELLOW) 01/25/18 18:05 Urine Appearance Hazy (CLEAR) 01/25/18 18:05 Urine RBC 3-5 /HPF (NONE SEEN) 01/25/18 18:05 Urine WBC 0-2 /HPF (NONE SEEN) 01/25/18 18:05 Ur Squamous Epith Cells Few /HPF (NEGATIVE) 01/25/18 18:05 Calcium Oxalate Crystal Many /HPF (NEGATIVE) 01/25/18 18:05 Urine Bacteria Trace /HPF (NEGATIVE) 01/25/18 18:05 Ur Culture Indicated? No/not indicated 01/25/18 18:05 - Plan (1) Abdominal pain Status: Active Plan: PAIN AND NAUSEA CONTROL. BS MONITORING, BLOOD SUGAR AND BLOOD PRESSURE CONTROL. CT ABD PELVIS ON ADMISSION, REPEAT AM LABS. VERIFY HOME MEDS, RENAL US PERFORMED,. BLOOD CULTURES COLLECTED, IV ZOSYN (2) Nausea & vomiting Status: Acute (3) Diabetes Status: Acute (4) Malignant neoplasm of liver Status: Acute (5) Retroperitoneal mass Status: Acute (6) Back pain Status: Acute Plan: MRI T AND L SPINE RO METASTATIC DISEASE, PT COULD NOT TOLERATE. CT ORDERD FOR TODAY AND NM BONE SCAN. PAIN CONTROL
[2018-01-28] MEDS ORDERED: NS 100 ML IV + SPIKE MINIBAG* 100 ML IV ONE ×2 (14:32→19:26)
--- NOTE | 2018-01-28 15:24 | CT ---
STUDY: CT LUMBAR SPINE WITHOUT CONTRAST HISTORY: Abdominal pain. Abnormal CT findings. Comparison: CT abdomen and pelvis from January 25, 2017. Technique: Multiple axial images of the lumbar spine were obtained from the thoracolumbar junction t o the sacrum without the administration of IV contrast. Sagittal and coronal reformats were performe d and reviewed. Findings: Note is again made of the previously described mass and/or fluid collection in the posterio r abdominal wall on the right. This finding is not completely assessed on the current study. Vascula r stents are noted. Vertebral body heights are within normal limits. There is grade 1 anterolisthesis of L5 on S1. There are defects in the L5 pars interarticularis bilaterally. No acute fracture is identified. There appears to be degenerative disc disease at the L5/S1 level. Otherwise, intervertebral disc heig hts appear fairly well-preserved. No significant facet joint arthropathy can be appreciated. There is no significant central canal stenosis bony osteophyte or soft tissue components. There is ne ural foraminal stenosis at the L5/S1 level. IMPRESSION: 1. Bilateral L5 spondylolysis, with grade 1 anterolisthesis of L5 on S1. 2. Soft tissue mass and/or fluid collection in the right posterior abdominal wall. Reported By:
--- NOTE | 2018-01-28 15:50 | CT ---
CT thoracic spine without contrast Indication: Abdominal pain, abnormal CT findings Comparison: CT abdomen and pelvis 01/25/2018. CT lumbar spine 01/28/2018. Technique: CT images of the thoracic spine were obtained without contrast. Automatic exposure control was utilized. Findings: The thoracic spine alignment is normal. There is no evidence for significant vertebral body height loss or acute cortical disruption. There is mild multilevel discogenic degenerative change. T he facet joints are grossly maintained. There is no evidence for significant osseous spinal canal or neural foraminal narrowing. No destructive osseous lesion appreciated. There is small right-sided pleural effusion with right lower lobe atelectasis. There is a 2.6 cm righ t adrenal nodule, described on the separate CT abdomen and pelvis. Previously described right posteri or abdominal wall mass is not included on this study. Left renal atrophy again noted. Impression: Mild thoracic spondylosis. No acute osseous abnormality. 2.6 cm right adrenal nodule. Reported By:
[2018-01-28] MEDS: MOTRIN TAB 600 MG PO PRN ×2 (16:55→22:47)
[2018-01-28] MEDS: COLACE SYRUP 100 MG UDC PO SCH (21:05)
[2018-01-28] MEDS: RESTORIL CAP 15 MG PO PRN (22:46)
[2018-01-29] MEDS ORDERED: NS 100 ML IV + SPIKE MINIBAG* 100 ML IV ONE ×3 (03:42→19:36)
[2018-01-29] MEDS: NS 1000 ML 1,000 ML IV SCH ×2 (03:53→18:06)
[2018-01-29] MEDS: DILAUDID INJ IVP PRN ×5 (03:54→21:27)
[2018-01-29] MEDS: PHENERGAN INJ 25 MG IV PRN ×2 (05:09→20:22)
[2018-01-29] MEDS: ZOSYN VIAL 3.375 GRAMS IV SCH ×3 (05:10→21:27)
[2018-01-29 06:09] LABS: ALANINE AMINOTRANSFERASE 10 Units/L (12-78); ALBUMIN 1.6 g/dL (3.4-5.0); ALKALINE PHOSPHATASE 164 Units/L (46-116); ASPARTATE AMINO TRANSFERASE 16 Units/L (15-37); BLOOD UREA NITROGEN 10 mg/dL (7-18); CALCIUM 8.1 mg/dL (8.5-10.1); CARBON DIOXIDE 27.7 mmol/L (21-32); CHLORIDE 98 mmol/L (98-107); COR NA(FOR HYPERGLY) 138 mmol/L (136-145); SODIUM 133 mmol/L (136-145); TOTAL PROTEIN 6.4 g/dL (6.4-8.2); eGFR NON BLACK RACES > 60 (>60)
[2018-01-29 06:17] LABS: BASOPHILS # (AUTO) 0.1 X10^3/uL (0.0-0.1); BASOPHILS % (AUTO) 0.5 % (0.2-1.0); EOSINOPHILS # (AUTO) 0.4 x10^3/uL (0.0-0.2); EOSINOPHILS % (AUTO) 2.5 % (0.9-2.9); HEMATOCRIT 26.5 % (36.0-47.0); HEMOGLOBIN 8.6 g/dL (12.0-16.0); LYMPHOCYTES # (AUTO) 1.2 X10^3/uL (1.3-2.9); LYMPHOCYTES % (AUTO) 7.9 % (21.0-51.0); MEAN CORPUSCULAR HEMOGLOBIN 24.2 pg (27.0-34.0); MEAN CORPUSCULAR HGB CONC 32.3 g/dL (33.0-35.0); MEAN CORPUSCULAR VOLUME 74.9 fL (80.0-100.0); MONOCYTES # (AUTO) 0.8 x10^3/uL (0.3-0.8); NEUTROPHILS # (AUTO) 13.3 x10^3/uL (2.2-4.8); NEUTROPHILS % (AUTO) 84.1 % (42.0-75.0); PLATELET COUNT 403 X10^3/uL (150.0-450.0); RED BLOOD COUNT 3.54 X10^6/uL (3.5-5.4); RED CELL DISTRIBUTION WIDTH 17.2 % (11.6-16.5); WHITE BLOOD COUNT 15.8 X10^3/uL (3.6-10.0)
[2018-01-29] MEDS: MOTRIN TAB 600 MG PO PRN ×2 (06:18→20:21)
[2018-01-29 06:37] LABS: PLATELET MORPHOLOGY COMMENT NORMAL (NORMAL)
[2018-01-29] MEDS: NICOTINE PATCH TD SCH (09:47)
[2018-01-29] MEDS: MILK OF MAGNESIA PO SCH ×2 (09:48→20:21)
[2018-01-29] MEDS: PROTONIX INJ 40 MG VIAL IVP SCH (09:48)
[2018-01-29] MEDS: HumuLIN R SUBCUT PRN ×3 (11:29→20:23)
--- NOTE | 2018-01-29 13:47 | PCM.PROG ---
Progress Note - Progress Note for Day of Date: 01/29/18 - Subjective Subjective: ABDOMINAL PAIN CONTINUE BUT SLIGHTLY IMPROVED AFTER STARTING DILAUDID, PT CONTINUES TO CO FOOD INTOLERANCE, WILL NOT EAT PER FAMILY. PT HAD BLOOD CULTURES COLLECTED, CURRENTLY ON ZOSYN IV. PT CONTINUES TO CO MID AND LOWER BACK PAIN, CONTROLLED WITH IV NARCOTICS. CT T AND LSPINE ORDERED, AND NM BONE SCAN TO ASSESS FOR METASTATIC DISEASE. FAMILY ASKING FOR COMFORT MEASURES AND PAIN CONTROL FOR PATIENT UPON D/C - Past Medical Family Social History Past Med/Fam/Surg Hx: No changes since H&P Allergies: Allergies acetaminophen Allergy (Verified 01/25/18 16:46) morphine Allergy (Verified 01/25/18 16:46) oxycodone Allergy (Verified 01/25/18 16:46) - Review of Systems ROS: No change since H&P - Vital Signs and I&O's Vital Signs: Temperature 97.7 F Pulse Rate [Right Brachial] 86 Pulse Rate [Left Brachial] 83 Pulse Rate 86 Respiratory Rate 20 Blood Pressure [Right Arm] 133/63 Blood Pressure 137/63 O2 Sat by Pulse Oximetry 98 Intake and Output: Intake & Output 01/27/18 01/28/18 01/29/18 01/30/18 11:59 11:59 11:59 11:59 Intake Total 2800 / 2800 2760 / 2760 1269 / 1269 Output Total 4 / 4 0 / 0 Balance 2796 / 2796 2760 / 2760 1269 / 1269 - Physical Exam Oriented: Normal Eyes: Normal Ear: Normal Nose: Normal Throat: Dry Respiratory: Diminished Cardiovascular: Normal : Normal Auscultation: Bowel Sounds: Decreased Tenderness: Diffuse, Mild Skin: Decreased Turgur Musculoskeletal: Back:Thoracic, Back:Lumbar Affect: Anxious Speech Pattern: Clear, Appropriate - Laboratory and Diagnostics Result Diagrams: 01/29/18 05:01 01/29/18 05:01 Labs: 01/27/18 00:52 Blood Blood Culture - Preliminary 01/27/18 00:29 Blood Blood Culture - Preliminary 01/25/18 16:37 Blood Blood Culture - Preliminary 01/25/18 16:35 Blood Blood Culture - Preliminary Laboratory WBC 15.8 X10^3/uL (3.6-10.0) H 01/29/18 05:01 RBC 3.54 X10^6/uL (3.5-5.4) 01/29/18 05:01 Hgb 8.6 g/dL (12.0-16.0) L 01/29/18 05:01 Hct 26.5 % (36.0-47.0) L 01/29/18 05:01 MCV 74.9 fL (80.0-100.0) L 01/29/18 05:01 MCH 24.2 pg (27.0-34.0) L 01/29/18 05:01 MCHC 32.3 g/dL (33.0-35.0) L 01/29/18 05:01 RDW 17.2 % (11.6-16.5) H 01/29/18 05:01 Plt Count 403 X10^3/uL (150.0-450.0) 01/29/18 05:01 Plt Count Comment Adequate (ADEQUATE) 01/29/18 05:01 MPV 8.0 fL (7.4-11.0) 01/29/18 05:01 Neut % (Auto) 84.1 % (42.0-75.0) H 01/29/18 05:01 Lymph % (Auto) 7.9 % (21.0-51.0) L 01/29/18 05:01 [place] % (Auto) 5.0 % (0.0-13.0) 01/29/18 05:01 Eos % (Auto) 2.5 % (0.9-2.9) 01/29/18 05:01 Baso % (Auto) 0.5 % (0.2-1.0) 01/29/18 05:01 Neut # (Auto) 13.3 x10^3/uL (2.2-4.8) H 01/29/18 05:01 Lymph # (Auto) 1.2 X10^3/uL (1.3-2.9) L 01/29/18 05:01 [place] # (Auto) 0.8 x10^3/uL (0.3-0.8) 01/29/18 05:01 Eos # (Auto) 0.4 x10^3/uL (0.0-0.2) H 01/29/18 05:01 Baso # (Auto) 0.1 X10^3/uL (0.0-0.1) 01/29/18 05:01 Absolute Nucleated RBC 0.0 /100WBC 01/29/18 05:01 Plt Morphology Comment Normal (NORMAL) 01/29/18 05:01 RBC Morphology Normal (NORMAL) 01/29/18 05:01 Anisocytosis 1+ A 01/25/18 16:35 Microcytosis 1+ A 01/25/18 16:35 Sodium 133 mmol/L (136-145) L 01/29/18 05:01 Corrected Sodium 138 mmol/L (136-145) 01/29/18 05:01 Potassium 3.7 mmol/L (3.5-5.1) 01/29/18 05:01 Chloride 98 mmol/L (98-107) 01/29/18 05:01 Carbon Dioxide 27.7 mmol/L (21-32) 01/29/18 05:01 BUN 10 mg/dL (7-18) 01/29/18 05:01 Creatinine 0.80 mg/dL (0.55-1.02) 01/29/18 05:01 Est GFR (MDRD) Af Amer > 60 (>60) 01/29/18 05:01 Est GFR (MDRD) Non-Af > 60 (>60) 01/29/18 05:01 Glucose 296 mg/dL (65-99) H 01/29/18 05:01 POC Glucose (mg/dL) 293 mg/dL (65-99) H 01/29/18 10:54 Lactic Acid 1.1 mmol/L (0.4-2.0) 01/29/18 10:30 Calcium 8.1 mg/dL (8.5-10.1) L 01/29/18 05:01 Corrected Calcium 10.0 mg/dL (8.5-10.1) 01/29/18 05:01 Total Bilirubin 0.40 mg/dL (0.2-1.0) 01/29/18 05:01 AST 16 Units/L (15-37) 01/29/18 05:01 ALT 10 Units/L (12-78) L 01/29/18 05:01 Alkaline Phosphatase 164 Units/L (46-116) H 01/29/18 05:01 Creatine Kinase < 7 Units/L (26-192) L 01/26/18 09:55 CK-MB (CK-2) < 1.0 ng/mL (0-4.0) 01/26/18 09:55 CK/CKMB % Calc 10.0 % (<4) 01/26/18 09:55 Troponin I < 0.02 ng/mL (0-1.5) 01/26/18 09:55 Total Protein 6.4 g/dL (6.4-8.2) 01/29/18 05:01 Albumin 1.6 g/dL (3.4-5.0) L 01/29/18 05:01 Globulin 4.8 g/dL (2.5-4.5) H 01/29/18 05:01 Albumin/Globulin Ratio 0.3 Ratio (1.1-2.1) L 01/29/18 05:01 Triglycerides 107 mg/dL (0-150) 01/26/18 05:40 Cholesterol 110 mg/dL (0-200) 01/26/18 05:40 LDL Cholesterol, Calc 75 mg/dL (0-100) 01/26/18 05:40 HDL Cholesterol 14 mg/dL (40-60) L 01/26/18 05:40 Cholesterol/HDL Ratio 7.9 (0.0-5.0) H 01/26/18 05:40 Amylase 12 Units/L (25-115) L 01/25/18 16:35 Lipase 66 Units/L (73-393) L 01/25/18 16:35 Specimen Type Clean catch urine 01/25/18 18:05 Urine Color [place] (YELLOW) 01/25/18 18:05 Urine Appearance Hazy (CLEAR) 01/25/18 18:05 Urine RBC 3-5 /HPF (NONE SEEN) 01/25/18 18:05 Urine WBC 0-2 /HPF (NONE SEEN) 01/25/18 18:05 Ur Squamous Epith Cells Few /HPF (NEGATIVE) 01/25/18 18:05 Calcium Oxalate Crystal Many /HPF (NEGATIVE) 01/25/18 18:05 Urine Bacteria Trace /HPF (NEGATIVE) 01/25/18 18:05 Ur Culture Indicated? No/not indicated 01/25/18 18:05 - Plan (1) Abdominal pain Status: Active Plan: PAIN AND NAUSEA CONTROL. BS MONITORING, BLOOD SUGAR AND BLOOD PRESSURE CONTROL. CT ABD PELVIS ON ADMISSION, REPEAT AM LABS. VERIFY HOME MEDS, RENAL US PERFORMED,. BLOOD CULTURES COLLECTED, IV ZOSYN (2) Nausea & vomiting Status: Acute (3) Diabetes Status: Acute (4) Malignant neoplasm of liver Status: Acute Plan: CONSULT [facility] (5) Retroperitoneal mass Status: Acute (6) Back pain Status: Acute Plan: MRI T AND L SPINE RO METASTATIC DISEASE, PT COULD NOT TOLERATE. CT ORDERD FOR TODAY AND NM BONE SCAN. PAIN CONTROL
--- NOTE | 2018-01-29 14:27 | RAD ---
HISTORY: Abdominal pain. Colon cancer. Study: KUB Comparison: CT of the abdomen and pelvis 01/25/2018 Findings: A moderate to large amount amount of stool is noted in the region of the transverse colon and descend ing colon. A small to moderate amount is noted in the region of the rectum. Vascular stents are pre sent. [id number] degenerative changes noted in the lumbar spine. Minimal is noted in the hips . IMPRESSION: 1. Moderate to large amount of stool in the transverse colon and descending colon with a small to mo derate amount noted in the region of the rectum. 2. I see no definite evidence of bowel obstruction or pneumoperitoneum. Reported By:
--- NOTE | 2018-01-29 15:00 | NM ---
HISTORY: Low back pain, possible metastatic disease, history of colonic tumor resection, liver cancer Study: Nuclear medicine whole-body bone scan Comparison: CT 01/28/2018, 01/25/2018 Technique: Whole body bone scintigraphy was performed in the anterior and posterior projection after the intravenous administration of 25.5 mCi of technetium labeled MDP. Findings: Physiologic distribution of radiotracer is observed throughout the appendicular and axial skeleton. There is asymmetric renal and collecting system activity on the right in the setting of known left re nal atrophy probable nonfunctioning left kidney. Previously identified right flank soft tissue mass/f luid collection does not show any significant uptake. No evidence to suggest osseous metastatic disea se. IMPRESSION: No abnormal uptake to suggest osseous metastatic disease. Reported By:
[2018-01-29] MEDS ORDERED: SNACK - Diabetic Appropriate PO SCH (20:00)
[2018-01-29] MEDS: COLACE SYRUP 100 MG UDC PO SCH (20:21)
[2018-01-29] MEDS: RESTORIL CAP 15 MG PO PRN (22:37)
[2018-01-30] MEDS: DILAUDID INJ IVP PRN ×3 (02:11→10:06)
[2018-01-30] MEDS: PHENERGAN INJ 25 MG IV PRN (02:17)
[2018-01-30] MEDS ORDERED: NS 100 ML IV + SPIKE MINIBAG* 100 ML IV ONE (04:22)
[2018-01-30] MEDS: ZOSYN VIAL 3.375 GRAMS IV SCH (05:03)
[2018-01-30 05:17] LABS: BASOPHILS # (AUTO) 0.1 X10^3/uL (0.0-0.1); BASOPHILS % (AUTO) 0.6 % (0.2-1.0); EOSINOPHILS # (AUTO) 0.4 x10^3/uL (0.0-0.2); EOSINOPHILS % (AUTO) 2.8 % (0.9-2.9); HEMATOCRIT 28.1 % (36.0-47.0); LYMPHOCYTES # (AUTO) 1.3 X10^3/uL (1.3-2.9); LYMPHOCYTES % (AUTO) 8.6 % (21.0-51.0); MEAN CORPUSCULAR HEMOGLOBIN 24.2 pg (27.0-34.0); MEAN CORPUSCULAR VOLUME 75.6 fL (80.0-100.0); MEAN PLATELET VOLUME 7.6 fL (7.4-11.0); MONOCYTES # (AUTO) 0.6 x10^3/uL (0.3-0.8); MONOCYTES % (AUTO) 4.3 % (0.0-13.0); NEUTROPHILS # (AUTO) 12.4 x10^3/uL (2.2-4.8); NEUTROPHILS % (AUTO) 83.7 % (42.0-75.0); PLATELET COUNT 441 X10^3/uL (150.0-450.0); RED BLOOD COUNT 3.72 X10^6/uL (3.5-5.4); RED CELL DISTRIBUTION WIDTH 16.8 % (11.6-16.5); WHITE BLOOD COUNT 14.8 X10^3/uL (3.6-10.0)
[2018-01-30 05:30] LABS: ALANINE AMINOTRANSFERASE 12 Units/L (12-78); ALBUMIN 1.7 g/dL (3.4-5.0); ALKALINE PHOSPHATASE 156 Units/L (46-116); ASPARTATE AMINO TRANSFERASE 15 Units/L (15-37); BLOOD UREA NITROGEN 10 mg/dL (7-18); CALCIUM 8.4 mg/dL (8.5-10.1); CARBON DIOXIDE 30.4 mmol/L (21-32); CHLORIDE 99 mmol/L (98-107); COR CA(FOR HYPOALB) 10.2 mg/dL (8.5-10.1); COR NA(FOR HYPERGLY) 138 mmol/L (136-145); CREATININE 0.76 mg/dL (0.55-1.02); SODIUM 136 mmol/L (136-145); TOTAL PROTEIN 6.9 g/dL (6.4-8.2); eGFR NON BLACK RACES > 60 (>60)
[2018-01-30 05:44] LABS: PLATELET MORPHOLOGY COMMENT NORMAL (NORMAL)
[2018-01-30] MEDS: NS 1000 ML 1,000 ML IV SCH (06:32)
[2018-01-30] MEDS: MOTRIN TAB 600 MG PO PRN (08:16)
[2018-01-30 08:17] LABS: STOOL FOR WBC NEGATIVE (NEGATIVE)
[2018-01-30] MEDS: MILK OF MAGNESIA PO SCH (09:19)
[2018-01-30] MEDS: NICOTINE PATCH TD SCH (09:20)
[2018-01-30] MEDS: PROTONIX INJ 40 MG VIAL IVP SCH (09:57)
[2018-01-30] MEDS ORDERED: PHENERGAN TAB 25 MG PO ONE ×2 (10:45→10:47)
[2018-01-30] MEDS: HumuLIN R SUBCUT PRN (11:58)
[2018-01-30 13:35] VITALS: BP 128/58
== END 2018-01-30 14:59 | disposition hospice, home (50) | DRG 392 ==
LOC: ER 15:24 → MED/SURG 15:24
PROVIDERS: ADMIT Internal Medicine; ATTEND Internal Medicine
DX: R10.84 Generalized abdominal pain; Z66 Do not resuscitate; N13.30 Unspecified hydronephrosis; R11.2 Nausea with vomiting, unspecified; E11.65 Type 2 diabetes mellitus with hyperglycemia; R19.09 Other intra-abdominal and pelvic swelling, mass and lump; R94.31 Abnormal electrocardiogram [ECG] [EKG]; M54.89 Other dorsalgia; I10 Essential (primary) hypertension; E86.0 Dehydration; D72.828 Other elevated white blood cell count; C22.8 Malignant neoplasm of liver, primary, unspecified as to type; R53.1 Weakness
CPT/HCPCS: 36415; 71010; 71045; 72128; 72131; 74000; 74018; 74176; 76770; 78306; 80053; 80061; 82150; 82270; 82550; 82553; 83605; 83630; 83690; 84484; 85008; 85025; 87040; 87045; 87427; 87449; 87899; 93005; 93010; 94760; 96365; 96367; 96374; 96375; 99218; 99283; 99284; A4222; C9113; Q0169; S0028; A9503; G0378; J1170; J1815; J1885; J2175; J2543; J2550; J7030; J7050

== ENCOUNTER 2019-05-15 18:22 | Inpatient (IN) ==
[2019-05-15 18:33] VITALS: BMI 27.1
--- NOTE | 2019-05-15 18:56 | DR.AMS ---
HPI Time Seen Time Seen by Provider: 05/15/19 18:39 PCP Primary Care Physician: SZYMANSKI Complaint Cheif Complaint Doctors Comments: Pt. is a 54 y/o female brought in by her daughters who states that she is still drowsy looking since Friday. Also has rattling noise in her chest. She is not on any new medications. The daughters states that administration of sedative medications have been withheld. However, she hasn't been to her PCP or Neurologist since being seen here on 05/12/19. Chief Complaint:: DAUGHTER STATES PT. HAS BEEN LETHARGIC SINCE FRIDAY AND TODAY THEY NOTICED SHE WAS RATTLING IN HER CHEST. 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 Past Surgical History: Yes Surgical History: Angioplasty/Stents and Cholecystectomy Family History History of Family Medical Conditions: Yes Family Medical History: Diabetes Mellitus, Cancer and IA Social History Does patient currently use any type of tobacco product: No Have you used tobacco products in the last 12 months: No Type of Tobacco Use: None Does any household member use tobacco: No Alcohol Use: None Do you use any recreational Drugs:: No Lives With: Family Lives Where: Home infectious screening In the last 2 months have you had wt loss of >10#?: NO Have you had fever, night sweats or hemotysis?: No Have you traveled outside the country in the last 6 months?: No Isolation: Standard ROS Review of Systems Constitutional: No Symptoms Reported Eyes: No Symptoms Reported ENTM: No Symptoms Reported Respiratoy: Other (chest congestion) Cardiovascular: No Symptoms Reported Gastrointestinal/Abdominal: No Symptoms Reported Genitourinary: No Symptoms Reported Neurological: No Symptoms Reported Musculoskeletal: No Symptoms Reported Integumentary: No Symptoms Reported Hematologic/Lymphatic: No Symptoms Reported Endocrine: No Symptoms Reported Psychiatric: No Symptoms Reported PE Vitals Vital Signs: Temp Pulse Resp BP BP Pulse Ox 05/15/19 20:30 90 92 L 05/15/19 19:30 91 H 23 05/15/19 19:19 93 H 30 H 05/15/19 18:29 99 F 94 H 22 131/60 96 05/12/19 13:30 141/63 04/21/19 19:31 108/50 General Limitations: No Limitations General Appearance: Alert and In No Apparent Distress Head Head Exam: Normal Inspection, Atraumatic and Normocephalic Eyes Eye exam: Normal Appearance and EOMI ENT ENT Exam: Normal Oropharynx and Mucous Membranes Moist Nose Exam: Other (the rattling sound is from the nares/oropharynx) Neck Neck Exam: Normal Inspection, Full ROM and Trachea Midline Chest Chest Inspection: Normal Inspection and Symmetric Chest Wall Rise Respiratory Respiratory Exam: Normal Lung Sounds Bilat Cardiovascular Cardiovascular Exam: Regular Rate, Normal Rhythm, +S1 and +S2 Abdominal Exam Abdominal Exam: Normal Inspection, Normal Bowel Sounds and Soft Extremities Extremities Exam: Normal Inspection and Other (Rt. side sae-paresis) Back Back Exam: Normal Inspection and Full ROM Neurological Neurological Exam: Alert Speech: Total Aphasia Psychological Psychiatric Exam: Normal Affect Skin Skin Exam: Dry and Normal Color COURSE Reevaluation 1st: Improved Consultation Consultation Comments: Her presentation and findings were discussed with Dr. Szymanski (PCP), he would admit the pt. to his service. Care plan was discussed. Education/Counseling Education/Counseling: Patient, Family, Education and Counseling Educated On: Treatment, Diagnosis, Prognosis and Needs for Follow Up ROR Labs Reviewed Laboratory Results Reviewed?: Yes Result Diagrams: 05/15/19 19:00 05/15/19 19:00 Laboratory: WBC 11.0 X10^3/uL (3.6-10.0) H 05/15/19 19:00 RBC 4.05 X10^6/uL (3.5-5.4) 05/15/19 19:00 Hgb 11.1 g/dL (12.0-16.0) L 05/15/19 19:00 Hct 33.3 % (36.0-47.0) L 05/15/19 19:00 MCV 82.1 fL (80.0-100.0) 05/15/19 19:00 MCH 27.5 pg (27.0-34.0) 05/15/19 19:00 MCHC 33.4 g/dL (33.0-35.0) 05/15/19 19:00 RDW 15.9 % (11.6-16.5) 05/15/19 19:00 Plt Count 183 X10^3/uL (150.0-450.0) 05/15/19 19:00 MPV 7.7 fL (7.4-11.0) 05/15/19 19:00 Neut % (Auto) 85.8 % (42.0-75.0) H 05/15/19 19:00 Lymph % (Auto) 7.8 % (21.0-51.0) L 05/15/19 19:00 [place] % (Auto) 4.2 % (0.0-13.0) 05/15/19 19:00 Eos % (Auto) 1.9 % (0.9-2.9) 05/15/19 19:00 Baso % (Auto) 0.3 % (0.2-1.0) 05/15/19 19:00 Neut # (Auto) 9.5 x10^3/uL (2.2-4.8) H 05/15/19 19:00 Lymph # (Auto) 0.9 X10^3/uL (1.3-2.9) L 05/15/19 19:00 [place] # (Auto) 0.5 x10^3/uL (0.3-0.8) 05/15/19 19:00 Eos # (Auto) 0.2 x10^3/uL (0.0-0.2) 05/15/19 19:00 Baso # (Auto) 0.0 X10^3/uL (0.0-0.1) 05/15/19 19:00 Absolute Nucleated RBC 0.0 /100WBC 05/15/19 19:00 Sample Site Lb 05/15/19 19:00 ABG pH 7.400 (7.35-7.45) 05/15/19 19:00 ABG pCO2 45.0 mmHg (35.0-45.0) 05/15/19 19:00 ABG pO2 56.0 mmHg (80.0-100.0) L 05/15/19 19:00 ABG HCO3 27.9 mmol/L (22-26) H 05/15/19 19:00 ABG O2 Saturation 89.0 % (90-100) L 05/15/19 19:00 ABG Base Excess 2.6 mmol/L (-2.0-2.0) H 05/15/19 19:00 Abdulaziz Test N/a 05/15/19 19:00 A-a Gradient 37.0 mmHg 05/15/19 19:00 FiO2 21.0 05/15/19 19:00 Blood Gas Comments Jose R well ae 05/15/19 19:00 Sodium 139 mmol/L (136-145) 05/15/19 19:00 Corrected Sodium 143 mmol/L (136-145) 05/15/19 19:00 Potassium 4.1 mmol/L (3.5-5.1) 05/15/19 19:00 Chloride 102 mmol/L (98-107) 05/15/19 19:00 Carbon Dioxide 26.6 mmol/L (21-32) 05/15/19 19:00 BUN 34 mg/dL (7-18) H 05/15/19 19:00 Creatinine 1.30 mg/dL (0.55-1.02) H 05/15/19 19:00 Est GFR (MDRD) Af Amer 54 (>60) L 05/15/19 19:00 Est GFR (MDRD) Non-Af 45 (>60) L 05/15/19 19:00 Glucose 270 mg/dL (65-99) H 05/15/19 19:00 Calcium 9.3 mg/dL (8.5-10.1) 05/15/19 19:00 Corrected Calcium TNP 05/15/19 19:00 Total Bilirubin 0.60 mg/dL (0.2-1.0) 05/15/19 19:00 AST 52 Units/L (15-37) H 05/15/19 19:00 ALT 58 Units/L (12-78) 05/15/19 19:00 Alkaline Phosphatase 128 Units/L (46-116) H 05/15/19 19:00 Total Protein 7.8 g/dL (6.4-8.2) 05/15/19 19:00 Albumin 3.4 g/dL (3.4-5.0) 05/15/19 19:00 Globulin 4.4 g/dL (2.5-4.5) 05/15/19 19:00 Albumin/Globulin Ratio 0.8 Ratio (1.1-2.1) L 05/15/19 19:00 XRAY XRAY Interpreted by: Radiologist XRAY Findings: CXR: No acute cardiopulmonary abnormality noted. EKG Rate: 91 [place]: Normal Rhythm: NSR Block: None Hypertrophy: LVH ST: Normal Opioid Opioid Risk Tool Age (Akil box if 16-45): No History of Preadolescent Sexual Abuse: No Total: 0 Total Score Risk Category: Low Risk Copyright: Jensen HUERTAS predicting aberrant behaviors Diagnosis Discharge Problem: COPD exacerbation, Hypoxemia Instructions Forms: Excuse From Work
[2019-05-15 19:10] LABS: ABG BASE EXCESS 2.6 mmol/L (-2.0-2.0); ABG HCO3 27.9 mmol/L (22-26)
[2019-05-15] MEDS ORDERED: AFRIN NASAL SPRAY ONE ×2 (19:12→19:13)
--- NOTE | 2019-05-15 19:18 | RAD ---
Examination: AP chest History: Congestion Comparison 04/21/2019 Findings: Continued normal heart size with no acute pulmonary, mediastinal or pleural disease. Impression: No change; no acute findings. Reported By:
[2019-05-15 19:22] LABS: BASOPHILS % (AUTO) 0.3 % (0.2-1.0); EOSINOPHILS # (AUTO) 0.2 x10^3/uL (0.0-0.2); EOSINOPHILS % (AUTO) 1.9 % (0.9-2.9); HEMATOCRIT 33.3 % (36.0-47.0); HEMOGLOBIN 11.1 g/dL (12.0-16.0); LYMPHOCYTES # (AUTO) 0.9 X10^3/uL (1.3-2.9); LYMPHOCYTES % (AUTO) 7.8 % (21.0-51.0); MEAN CORPUSCULAR HEMOGLOBIN 27.5 pg (27.0-34.0); MEAN CORPUSCULAR HGB CONC 33.4 g/dL (33.0-35.0); MEAN CORPUSCULAR VOLUME 82.1 fL (80.0-100.0); MEAN PLATELET VOLUME 7.7 fL (7.4-11.0); MONOCYTES # (AUTO) 0.5 x10^3/uL (0.3-0.8); MONOCYTES % (AUTO) 4.2 % (0.0-13.0); NEUTROPHILS # (AUTO) 9.5 x10^3/uL (2.2-4.8); NEUTROPHILS % (AUTO) 85.8 % (42.0-75.0); PLATELET COUNT 183 X10^3/uL (150.0-450.0); RED BLOOD COUNT 4.05 X10^6/uL (3.5-5.4); RED CELL DISTRIBUTION WIDTH 15.9 % (11.6-16.5)
[2019-05-15 19:26] LABS: ALANINE AMINOTRANSFERASE 58 Units/L (12-78); ALBUMIN 3.4 g/dL (3.4-5.0); ALKALINE PHOSPHATASE 128 Units/L (46-116); ASPARTATE AMINO TRANSFERASE 52 Units/L (15-37); BLOOD UREA NITROGEN 34 mg/dL (7-18); CALCIUM 9.3 mg/dL (8.5-10.1); CARBON DIOXIDE 26.6 mmol/L (21-32); CHLORIDE 102 mmol/L (98-107); COR NA(FOR HYPERGLY) 143 mmol/L (136-145); SODIUM 139 mmol/L (136-145); TOTAL PROTEIN 7.8 g/dL (6.4-8.2); eGFR NON BLACK RACES 45 (>60)
[2019-05-15] MEDS ORDERED: DUONEB 0.5 MG/3 MG ONE (20:27)
[2019-05-15] MEDS ORDERED: LEVAQUIN PREMIX IV 250 MG 250 MG/50 ML BAG IV SCH (21:00)
[2019-05-15] MEDS ORDERED: DUONEB 0.5 MG/3 MG NEB ONE (21:11)
[2019-05-15] MEDS: NS 1000 ML 1,000 ML IV SCH (22:58)
[2019-05-15] MEDS: SOLU-Medrol 40 MG VIAL IVP SCH (23:38)
[2019-05-16] MEDS ORDERED: LEVAQUIN PREMIX IV 500 MG 500 MG/100 ML BAG IV SCH
[2019-05-16] MEDS: DUONEB 0.5 MG/3 MG NEB SCH ×6 (00:48→20:49)
[2019-05-16] MEDS ORDERED: TYLENOL 325 MG TAB PO ONE (03:03)
[2019-05-16] MEDS: TYLENOL 325 MG TAB PO PRN ×2 (03:12→10:49)
[2019-05-16 04:31] LABS: ABG ALLEN TEST POS; ABG BASE EXCESS 0.9 mmol/L (-2.0-2.0); ABG HCO3 26.6 mmol/L (22-26)
[2019-05-16 05:24] LABS: BASOPHILS % (AUTO) 0.1 % (0.2-1.0); EOSINOPHILS % (AUTO) 0.2 % (0.9-2.9); HEMATOCRIT 31.8 % (36.0-47.0); HEMOGLOBIN 10.7 g/dL (12.0-16.0); LYMPHOCYTES # (AUTO) 0.5 X10^3/uL (1.3-2.9); LYMPHOCYTES % (AUTO) 6.3 % (21.0-51.0); MEAN CORPUSCULAR HEMOGLOBIN 27.9 pg (27.0-34.0); MEAN CORPUSCULAR HGB CONC 33.6 g/dL (33.0-35.0); MEAN CORPUSCULAR VOLUME 83.1 fL (80.0-100.0); MEAN PLATELET VOLUME 7.7 fL (7.4-11.0); MONOCYTES # (AUTO) 0.1 x10^3/uL (0.3-0.8); MONOCYTES % (AUTO) 0.9 % (0.0-13.0); NEUTROPHILS # (AUTO) 7.7 x10^3/uL (2.2-4.8); NEUTROPHILS % (AUTO) 92.5 % (42.0-75.0); PLATELET COUNT 157 X10^3/uL (150.0-450.0); RED BLOOD COUNT 3.83 X10^6/uL (3.5-5.4); RED CELL DISTRIBUTION WIDTH 16.4 % (11.6-16.5); WHITE BLOOD COUNT 8.3 X10^3/uL (3.6-10.0)
[2019-05-16 05:46] LABS: ALBUMIN 3.1 g/dL (3.4-5.0); CALCIUM 8.5 mg/dL (8.5-10.1); CARBON DIOXIDE 23.7 mmol/L (21-32); COR CA(FOR HYPOALB) 9.2 mg/dL (8.5-10.1); CREATININE 1.24 mg/dL (0.55-1.02); PLATELET MORPHOLOGY COMMENT NORMAL (NORMAL); TOTAL PROTEIN 7.6 g/dL (6.4-8.2)
[2019-05-16 06:19] LABS: BILIRUBIN,URINE NEGATIVE (NEGATIVE); BLOOD/HEMOGLOBIN,URINE 3+ (NEGATIVE); GLUCOSE, URINE 4+ (NEGATIVE); KETONES,URINE NEGATIVE (NEGATIVE); LEUKOCYTE ESTERASE ,URINE 2+ (NEGATIVE); NITRITES,URINE NEGATIVE (NEGATIVE); PROTEIN,URINE 1+ (NEGATIVE); UROBILINOGEN,URINE NORMAL (NORMAL)
[2019-05-16 06:30] LABS: APPEARANCE,URINE CLEAR (CLEAR); COLOR,URINE PALE YELLOW (YELLOW)
[2019-05-16 06:31] LABS: AMORPHOUS SEDIMENT,UR TRACE /HPF (NEGATIVE); BACTERIA,URINE 2+ /HPF (NEGATIVE); MUCUS,URINE FEW /HPF (NEGATIVE); RBC,URINE 0-2 /HPF (0-3); SQUAMOUS EPITHELIAL CELL,UR RARE /HPF (NEGATIVE)
[2019-05-16] MEDS: SOLU-Medrol 40 MG VIAL IVP SCH (09:25)
[2019-05-16] MEDS: VSL#3 PO SCH (09:26)
[2019-05-16] MEDS: NS 1000 ML 1,000 ML IV SCH ×2 (12:26→22:21)
[2019-05-16] MEDS ORDERED: ACTOS PO SCH (13:15)
[2019-05-16] MEDS ORDERED: ZOLOFT PO ONE (16:19)
[2019-05-16] MEDS: ABILIFY PO SCH (16:47)
[2019-05-16] MEDS: BRILINTA PO SCH (16:48)
[2019-05-16] MEDS: LEVAQUIN PREMIX IV 500 MG 500 MG/100 ML BAG IV SCH (16:48)
[2019-05-16] MEDS: FLONASE NASAL SPRAY ENOSTRIL SCH ×2 (16:48→20:31)
[2019-05-16] MEDS: NEURONTIN TAB 600 MG PO SCH ×3 (16:49→20:32)
[2019-05-16] MEDS: PROTONIX TAB 40 MG PO SCH (16:50)
[2019-05-16] MEDS: ROXICODONE TAB 5 MG PO SCH ×2 (16:51→21:35)
[2019-05-16] MEDS: ZESTRIL TAB 10 MG PO SCH (16:51)
[2019-05-16] MEDS: GLUCOPHAGE XR PO SCH ×2 (16:52→20:33)
[2019-05-16] MEDS: LOPRESSOR TAB 25 MG PO SCH (16:53)
[2019-05-16] MEDS: ZOLOFT PO SCH (16:54)
[2019-05-16] MEDS: ZETIA TAB 10 MG PO SCH (16:54)
[2019-05-16] MEDS: MIRAPEX TAB 0.25 MG PO SCH (16:55)
[2019-05-16] MEDS: LIORESAL PO SCH ×2 (16:55→20:32)
[2019-05-16] MEDS: LIPITOR TAB 40 MG PO SCH (16:56)
[2019-05-16] MEDS: RESTORIL CAP 30 MG PO SCH (20:32)
[2019-05-17] MEDS: DUONEB 0.5 MG/3 MG NEB SCH ×6 (01:15→20:25)
[2019-05-17 05:14] LABS: BASOPHILS % (AUTO) 0.2 % (0.2-1.0); EOSINOPHILS # (AUTO) 0.1 x10^3/uL (0.0-0.2); HEMATOCRIT 28.5 % (36.0-47.0); HEMOGLOBIN 9.6 g/dL (12.0-16.0); LYMPHOCYTES # (AUTO) 0.7 X10^3/uL (1.3-2.9); LYMPHOCYTES % (AUTO) 11.3 % (21.0-51.0); MEAN CORPUSCULAR HEMOGLOBIN 27.7 pg (27.0-34.0); MEAN CORPUSCULAR HGB CONC 33.7 g/dL (33.0-35.0); MEAN CORPUSCULAR VOLUME 82.4 fL (80.0-100.0); MEAN PLATELET VOLUME 8.1 fL (7.4-11.0); MONOCYTES # (AUTO) 0.5 x10^3/uL (0.3-0.8); MONOCYTES % (AUTO) 7.2 % (0.0-13.0); NEUTROPHILS # (AUTO) 5.2 x10^3/uL (2.2-4.8); NEUTROPHILS % (AUTO) 80.3 % (42.0-75.0); PLATELET COUNT 142 X10^3/uL (150.0-450.0); RED BLOOD COUNT 3.46 X10^6/uL (3.5-5.4); RED CELL DISTRIBUTION WIDTH 16.1 % (11.6-16.5); WHITE BLOOD COUNT 6.4 X10^3/uL (3.6-10.0)
[2019-05-17 05:28] LABS: ALANINE AMINOTRANSFERASE 50 Units/L (12-78); ALKALINE PHOSPHATASE 105 Units/L (46-116); ASPARTATE AMINO TRANSFERASE 27 Units/L (15-37); BLOOD UREA NITROGEN 28 mg/dL (7-18); CALCIUM 8.6 mg/dL (8.5-10.1); CARBON DIOXIDE 26.1 mmol/L (21-32); CHLORIDE 107 mmol/L (98-107); COR CA(FOR HYPOALB) 9.4 mg/dL (8.5-10.1); COR NA(FOR HYPERGLY) 142 mmol/L (136-145); CREATININE 1.15 mg/dL (0.55-1.02); SODIUM 142 mmol/L (136-145); TOTAL PROTEIN 6.9 g/dL (6.4-8.2); eGFR NON BLACK RACES 52 (>60)
[2019-05-17] MEDS: ROXICODONE TAB 5 MG PO SCH ×3 (05:55→21:32)
[2019-05-17] MEDS ORDERED: HumuLIN R SUBCUT PRN (09:22)
[2019-05-17] MEDS ORDERED: ZOLOFT PO ONE (09:30)
[2019-05-17] MEDS: GLUCOPHAGE XR PO SCH ×3 (13:58→21:31)
[2019-05-17] MEDS: BRILINTA PO SCH (13:58)
[2019-05-17] MEDS: ABILIFY PO SCH ×2 (13:58→15:53)
[2019-05-17] MEDS: LIORESAL PO SCH ×2 (13:59→21:31)
[2019-05-17] MEDS: ZOLOFT PO SCH ×2 (13:59→15:52)
[2019-05-17] MEDS: ZETIA TAB 10 MG PO SCH (13:59)
[2019-05-17] MEDS: ZESTRIL TAB 10 MG PO SCH (13:59)
[2019-05-17] MEDS: PROTONIX TAB 40 MG PO SCH (14:00)
[2019-05-17] MEDS: NEURONTIN TAB 600 MG PO SCH ×3 (14:01→21:32)
[2019-05-17] MEDS: LOPRESSOR TAB 25 MG PO SCH (14:01)
[2019-05-17] MEDS: VSL#3 PO SCH (14:01)
[2019-05-17] MEDS: MIRAPEX TAB 0.25 MG PO SCH (14:02)
[2019-05-17] MEDS: FLONASE NASAL SPRAY ENOSTRIL SCH ×2 (14:02→21:33)
[2019-05-17] MEDS: LIPITOR TAB 40 MG PO SCH (14:02)
[2019-05-17] MEDS: LEVAQUIN PREMIX IV 500 MG 500 MG/100 ML BAG IV SCH (15:44)
[2019-05-17] MEDS: SNACK - Diabetic Appropriate PO SCH (21:29)
[2019-05-17] MEDS: RESTORIL CAP 30 MG PO SCH (21:33)
[2019-05-18] MEDS: DUONEB 0.5 MG/3 MG NEB SCH ×6 (01:25→20:27)
[2019-05-18] MEDS: NS 1000 ML 1,000 ML IV SCH ×2 (02:14→22:00)
[2019-05-18] MEDS: ROXICODONE TAB 5 MG PO SCH ×3 (05:03→22:00)
[2019-05-18 05:23] LABS: BASOPHILS % (AUTO) 0.4 % (0.2-1.0); EOSINOPHILS # (AUTO) 0.1 x10^3/uL (0.0-0.2); HEMOGLOBIN 7.7 g/dL (12.0-16.0); LYMPHOCYTES # (AUTO) 0.9 X10^3/uL (1.3-2.9); LYMPHOCYTES % (AUTO) 21.3 % (21.0-51.0); MEAN CORPUSCULAR HEMOGLOBIN 27.9 pg (27.0-34.0); MEAN CORPUSCULAR HGB CONC 33.6 g/dL (33.0-35.0); MEAN PLATELET VOLUME 7.8 fL (7.4-11.0); MONOCYTES # (AUTO) 0.2 x10^3/uL (0.3-0.8); NEUTROPHILS # (AUTO) 2.8 x10^3/uL (2.2-4.8); NEUTROPHILS % (AUTO) 69.3 % (42.0-75.0); PLATELET COUNT 117 X10^3/uL (150.0-450.0); RED BLOOD COUNT 2.77 X10^6/uL (3.5-5.4); RED CELL DISTRIBUTION WIDTH 16.1 % (11.6-16.5)
[2019-05-18 05:27] LABS: ALANINE AMINOTRANSFERASE 31 Units/L (12-78); ALBUMIN 2.5 g/dL (3.4-5.0); ALKALINE PHOSPHATASE 85 Units/L (46-116); ASPARTATE AMINO TRANSFERASE 17 Units/L (15-37); BLOOD UREA NITROGEN 27 mg/dL (7-18); CALCIUM 8.1 mg/dL (8.5-10.1); CARBON DIOXIDE 24.8 mmol/L (21-32); CHLORIDE 108 mmol/L (98-107); COR CA(FOR HYPOALB) 9.3 mg/dL (8.5-10.1); COR NA(FOR HYPERGLY) 141 mmol/L (136-145); CREATININE 0.89 mg/dL (0.55-1.02); SODIUM 140 mmol/L (136-145); TOTAL PROTEIN 5.9 g/dL (6.4-8.2); eGFR NON BLACK RACES > 60 (>60)
[2019-05-18 05:32] LABS: MICROCYTOSIS 1+; PLATELET MORPHOLOGY COMMENT NORMAL (NORMAL)
[2019-05-18] MEDS: ZESTRIL TAB 10 MG PO SCH (09:49)
[2019-05-18] MEDS: LOPRESSOR TAB 25 MG PO SCH (09:49)
[2019-05-18 09:56] LABS: IRON 25 ug/dL (50-175)
[2019-05-18] MEDS: ABILIFY PO SCH (10:07)
[2019-05-18] MEDS: LEVAQUIN PREMIX IV 500 MG 500 MG/100 ML BAG IV SCH (10:08)
[2019-05-18] MEDS: FLONASE NASAL SPRAY ENOSTRIL SCH ×2 (10:08→21:00)
[2019-05-18] MEDS: BRILINTA PO SCH (10:08)
[2019-05-18] MEDS: MIRAPEX TAB 0.25 MG PO SCH (10:08)
[2019-05-18] MEDS: LIPITOR TAB 40 MG PO SCH (10:08)
[2019-05-18] MEDS: VSL#3 PO SCH (10:09)
[2019-05-18] MEDS: PROTONIX TAB 40 MG PO SCH (10:09)
[2019-05-18] MEDS: ZETIA TAB 10 MG PO SCH (10:09)
[2019-05-18] MEDS: ZOSYN VIAL 3.375 GRAMS 3.375 G in NS 100 ML IV + SPIKE MINIBAG* 100 ML IV SCH ×3 (12:00→22:00)
[2019-05-18] MEDS ORDERED: BUTT CREAM (COMPOUND) TOP PRN (12:13)
[2019-05-18] MEDS ORDERED: BUTT CREAM (COMPOUND) ONE (12:14)
--- NOTE | 2019-05-18 13:25 | PCM.PROG ---
Progress Note - Progress Note for Day of Date of Exam: 05/17/19 - Subjective Subjective: 54 WF ER ADMISSION ON 05/15/2019 WITH FAMILY REPORTING INCREASED LETHARGY AND CHEST CONGESTION. PT WAS STARTED ON IV ATBX, AND RESP THERAPY. FAMILY REPORTS SHE HAS BEEN HAVING COUGHING WHILE EATING, THEY WERE CONCERNED ABOUT POSSIBLE ASPIRATION. PT AWAKE THIS AM, OPENS EYE, MINIMAL VERBAL REPS PONES, NODS TO DENY PAIN. PTS RENAL FUNCTION IMPROVING, BUN 28,CREAT 1.15 THIS AM, HGB9.6. PLAN TO CONSULT SPEECH FOR SWALLOW EVALUATION. REVIEW HOME MEDICATIONS, [employer]SI COVERAGE FOR DIABETES. - Past Medical Family Social History Past Med/Fam/Surg Hx: No changes since H&P Allergies: Allergies morphine Allergy (Verified 05/15/19 18:29) - Review of Systems ROS: No change since H&P - Vital Signs and I&O's Vital Signs: Temperature 98.2 F Pulse Rate [Left Brachial] 88 Pulse Rate 88 Respiratory Rate 20 Blood Pressure [Left Arm] 115/58 Blood Pressure [Right Arm] 115/58 Blood Pressure 122/58 O2 Sat by Pulse Oximetry 96 Intake and Output: Intake & Output 05/16/19 05/17/19 05/18/19 05/19/19 11:59 11:59 11:59 11:59 Intake Total 860 / 860 2200 / 2200 1640 / 1640 Balance 860 / 860 2200 / 2200 1640 / 1640 - Physical Exam Oriented: Person, Unable to test Eyes: Normal Ear: Normal Nose: Normal Throat: Normal Respiratory: Generalized, Wheezes, Rhonchi Cardiovascular: Normal : Normal Auscultation: Bowel Sounds: Normal Palpation: Normal Tenderness: Normal Skin: Normal Musculoskeletal: Right, Arm, Leg, Motor Deficit, Sensory Deficit Mood Description: Calm (LIMITED VERBAL RESPONES, NODS, YES AND NO APPROPRIATELY) Speech Pattern: Unclear - Laboratory and Diagnostics Result Diagrams: 05/18/19 04:58 05/18/19 04:58 Labs: 05/16/19 06:07 Urine,Clean Catch Urine Culture - Final Enterococcus Faecalis 05/15/19 19:00 Blood Blood Culture - Preliminary Laboratory WBC 4.0 X10^3/uL (3.6-10.0) 05/18/19 04:58 RBC 2.77 X10^6/uL (3.5-5.4) L 05/18/19 04:58 Hgb 7.7 g/dL (12.0-16.0) L 05/18/19 04:58 Hct 23.0 % (36.0-47.0) L 05/18/19 04:58 MCV 83.0 fL (80.0-100.0) 05/18/19 04:58 MCH 27.9 pg (27.0-34.0) 05/18/19 04:58 MCHC 33.6 g/dL (33.0-35.0) 05/18/19 04:58 RDW 16.1 % (11.6-16.5) 05/18/19 04:58 Plt Count 117 X10^3/uL (150.0-450.0) L 05/18/19 04:58 Plt Count Comment Decreased (ADEQUATE) A 05/18/19 04:58 MPV 7.8 fL (7.4-11.0) 05/18/19 04:58 Neut % (Auto) 69.3 % (42.0-75.0) 05/18/19 04:58 Lymph % (Auto) 21.3 % (21.0-51.0) 05/18/19 04:58 [place] % (Auto) 6.0 % (0.0-13.0) 05/18/19 04:58 Eos % (Auto) 3.0 % (0.9-2.9) H 05/18/19 04:58 Baso % (Auto) 0.4 % (0.2-1.0) 05/18/19 04:58 Neut # (Auto) 2.8 x10^3/uL (2.2-4.8) 05/18/19 04:58 Lymph # (Auto) 0.9 X10^3/uL (1.3-2.9) L 05/18/19 04:58 [place] # (Auto) 0.2 x10^3/uL (0.3-0.8) L 05/18/19 04:58 Eos # (Auto) 0.1 x10^3/uL (0.0-0.2) 05/18/19 04:58 Baso # (Auto) 0.0 X10^3/uL (0.0-0.1) 05/18/19 04:58 Absolute Nucleated RBC 0.0 /100WBC 05/18/19 04:58 Total Counted 100 05/16/19 04:45 Neutrophils % (Manual) 94 % (39-76) H 05/16/19 04:45 Lymphocytes % (Manual) 6 % (13-43) L 05/16/19 04:45 Plt Morphology Comment Normal (NORMAL) 05/18/19 04:58 RBC Morphology Abnormal (NORMAL) A 05/18/19 04:58 Microcytosis 1+ A 05/18/19 04:58 Sample Site Rr 05/16/19 04:15 ABG pH 7.370 (7.35-7.45) 05/16/19 04:15 ABG pCO2 46.0 mmHg (35.0-45.0) H 05/16/19 04:15 ABG pO2 88.0 mmHg (80.0-100.0) 05/16/19 04:15 ABG HCO3 26.6 mmol/L (22-26) H 05/16/19 04:15 ABG O2 Saturation 96.0 % (90-100) 05/16/19 04:15 ABG Base Excess 0.9 mmol/L (-2.0-2.0) 05/16/19 04:15 Abdulaziz Test Pos 05/16/19 04:15 A-a Gradient 54.0 mmHg 05/16/19 04:15 FiO2 28.0 05/16/19 04:15 Blood Gas Comments Jose R well ae 05/16/19 04:15 Sodium 140 mmol/L (136-145) 05/18/19 04:58 Corrected Sodium 141 mmol/L (136-145) 05/18/19 04:58 Potassium 3.9 mmol/L (3.5-5.1) 05/18/19 04:58 Chloride 108 mmol/L (98-107) H 05/18/19 04:58 Carbon Dioxide 24.8 mmol/L (21-32) 05/18/19 04:58 BUN 27 mg/dL (7-18) H 05/18/19 04:58 Creatinine 0.89 mg/dL (0.55-1.02) 05/18/19 04:58 Est GFR (MDRD) Af Amer > 60 (>60) 05/18/19 04:58 Est GFR (MDRD) Non-Af > 60 (>60) 05/18/19 04:58 Glucose 122 mg/dL (65-99) H 05/18/19 04:58 POC Glucose (mg/dL) 149 mg/dL (65-99) H 05/18/19 11:44 Calcium 8.1 mg/dL (8.5-10.1) L 05/18/19 04:58 Corrected Calcium 9.3 mg/dL (8.5-10.1) 05/18/19 04:58 Iron 25 ug/dL (50-175) L 05/18/19 05:00 Transferrin 98 mg/dL (202-364) L 05/18/19 05:00 Ferritin 367 ng/mL (8-252) H 05/18/19 05:00 Total Bilirubin 0.10 mg/dL (0.2-1.0) L 05/18/19 04:58 AST 17 Units/L (15-37) 05/18/19 04:58 ALT 31 Units/L (12-78) 05/18/19 04:58 Alkaline Phosphatase 85 Units/L (46-116) 05/18/19 04:58 Total Protein 5.9 g/dL (6.4-8.2) L 05/18/19 04:58 Albumin 2.5 g/dL (3.4-5.0) L 05/18/19 04:58 Globulin 3.4 g/dL (2.5-4.5) 05/18/19 04:58 Albumin/Globulin Ratio 0.7 Ratio (1.1-2.1) L 05/18/19 04:58 Vitamin B12 1238 pg/mL (193-986) H 05/18/19 05:00 Folate > 20.0 ng/mL (>8.6) 05/18/19 05:00 Specimen Type Catherized urine 05/16/19 06:07 Urine Color Pale yellow (YELLOW) 05/16/19 06:07 Urine Appearance Clear (CLEAR) 05/16/19 06:07 Urine pH 5.0 (5.0 - 8.0) 05/16/19 06:07 Ur Specific [place] 1.020 (1.000-1.030) 05/16/19 06:07 Urine Protein 1+ (NEGATIVE) 05/16/19 06:07 Urine Glucose (UA) 4+ (NEGATIVE) 05/16/19 06:07 Urine Ketones Negative (NEGATIVE) 05/16/19 06:07 Urine Occult Blood 3+ (NEGATIVE) 05/16/19 06:07 Urine Nitrite Negative (NEGATIVE) 05/16/19 06:07 Urine Bilirubin Negative (NEGATIVE) 05/16/19 06:07 Urine Urobilinogen Normal (NORMAL) 05/16/19 06:07 Ur Leukocyte Esterase 2+ (NEGATIVE) 05/16/19 06:07 Urine RBC 0-2 /HPF (0-3) 05/16/19 06:07 Urine WBC 0-2 /HPF (0-5) 05/16/19 06:07 Ur Squamous Epith Cells Rare /HPF (NEGATIVE) 05/16/19 06:07 Amorphous Sediment Trace /HPF (NEGATIVE) 05/16/19 06:07 Urine Bacteria 2+ /HPF (NEGATIVE) 05/16/19 06:07 Urine Mucus Few /HPF (NEGATIVE) 05/16/19 06:07 Ur Culture Indicated? No/not indicated 05/16/19 06:07 - Plan (1) COPD exacerbation Status: Acute Plan: CONTINUE RESP THERAPY, IV ATBX, SUPPLEMENTAL O2. GENTLE IV HYDRATION AND BLOOD SUGAR CONTROL. SPEECH EVALUATION, REPEAT AM LABS (2) Altered mental status Status: Acute Qualifiers: Altered mental status type: transient alteration of awareness Qualified Code(s): R40.4 - Transient alteration of awareness Plan: CT HEAD W/O ACUTE CHANGES FROM ER VISIT (3) Diabetes Status: Acute (4) Malignant neoplasm of liver Status: Acute (5) CVA, old, aphasia Status: Acute
[2019-05-18 16:20] LABS: BASOPHILS % (AUTO) 0.5 % (0.2-1.0); EOSINOPHILS # (AUTO) 0.1 x10^3/uL (0.0-0.2); EOSINOPHILS % (AUTO) 3.1 % (0.9-2.9); HEMATOCRIT 25.7 % (36.0-47.0); HEMOGLOBIN 8.7 g/dL (12.0-16.0); LYMPHOCYTES # (AUTO) 0.6 X10^3/uL (1.3-2.9); LYMPHOCYTES % (AUTO) 14.1 % (21.0-51.0); MEAN CORPUSCULAR HEMOGLOBIN 27.9 pg (27.0-34.0); MEAN CORPUSCULAR HGB CONC 33.7 g/dL (33.0-35.0); MEAN CORPUSCULAR VOLUME 82.7 fL (80.0-100.0); MEAN PLATELET VOLUME 7.8 fL (7.4-11.0); MONOCYTES # (AUTO) 0.2 x10^3/uL (0.3-0.8); MONOCYTES % (AUTO) 5.4 % (0.0-13.0); NEUTROPHILS % (AUTO) 76.9 % (42.0-75.0); PLATELET COUNT 138 X10^3/uL (150.0-450.0); RED BLOOD COUNT 3.11 X10^6/uL (3.5-5.4); RED CELL DISTRIBUTION WIDTH 16.6 % (11.6-16.5)
[2019-05-18] MEDS ORDERED: PHARMACY CONSULT - DOSE _____ XX SCH (18:00)
[2019-05-18] MEDS: SNACK - Diabetic Appropriate PO SCH (21:00)
[2019-05-19] MEDS: DUONEB 0.5 MG/3 MG NEB SCH ×6 (00:43→20:49)
[2019-05-19] MEDS: TYLENOL 325 MG TAB PO PRN (03:30)
[2019-05-19 05:08] LABS: BASOPHILS % (AUTO) 0.4 % (0.2-1.0); EOSINOPHILS # (AUTO) 0.1 x10^3/uL (0.0-0.2); EOSINOPHILS % (AUTO) 4.1 % (0.9-2.9); HEMATOCRIT 22.1 % (36.0-47.0); HEMOGLOBIN 7.5 g/dL (12.0-16.0); LYMPHOCYTES # (AUTO) 0.9 X10^3/uL (1.3-2.9); LYMPHOCYTES % (AUTO) 24.7 % (21.0-51.0); MEAN CORPUSCULAR HEMOGLOBIN 27.8 pg (27.0-34.0); MEAN CORPUSCULAR HGB CONC 33.8 g/dL (33.0-35.0); MEAN CORPUSCULAR VOLUME 82.5 fL (80.0-100.0); MEAN PLATELET VOLUME 7.8 fL (7.4-11.0); MONOCYTES # (AUTO) 0.2 x10^3/uL (0.3-0.8); MONOCYTES % (AUTO) 6.9 % (0.0-13.0); NEUTROPHILS # (AUTO) 2.3 x10^3/uL (2.2-4.8); NEUTROPHILS % (AUTO) 63.9 % (42.0-75.0); PLATELET COUNT 120 X10^3/uL (150.0-450.0); RED BLOOD COUNT 2.68 X10^6/uL (3.5-5.4); WHITE BLOOD COUNT 3.5 X10^3/uL (3.6-10.0)
[2019-05-19 05:11] LABS: ALANINE AMINOTRANSFERASE 24 Units/L (12-78); ALBUMIN 2.5 g/dL (3.4-5.0); ALKALINE PHOSPHATASE 78 Units/L (46-116); ASPARTATE AMINO TRANSFERASE 12 Units/L (15-37); BLOOD UREA NITROGEN 18 mg/dL (7-18); CALCIUM 7.9 mg/dL (8.5-10.1); CARBON DIOXIDE 26.1 mmol/L (21-32); CHLORIDE 108 mmol/L (98-107); COR CA(FOR HYPOALB) 9.1 mg/dL (8.5-10.1); COR NA(FOR HYPERGLY) 144 mmol/L (136-145); CREATININE 0.98 mg/dL (0.55-1.02); SODIUM 144 mmol/L (136-145); TOTAL PROTEIN 5.8 g/dL (6.4-8.2); eGFR NON BLACK RACES > 60 (>60)
[2019-05-19 05:20] LABS: MICROCYTOSIS SLIGHT; PLATELET MORPHOLOGY COMMENT NORMAL (NORMAL)
[2019-05-19] MEDS: ZOSYN VIAL 3.375 GRAMS 3.375 G in NS 100 ML IV + SPIKE MINIBAG* 100 ML IV SCH ×3 (05:30→21:01)
[2019-05-19] MEDS: ROXICODONE TAB 5 MG PO SCH ×3 (05:39→21:01)
[2019-05-19] MEDS ORDERED: DEXFERRUM or INFED 25 MG in NS 100 ML IV 100 ML IV NR (09:00)
[2019-05-19] MEDS: ABILIFY PO SCH (09:24)
[2019-05-19] MEDS: LIPITOR TAB 40 MG PO SCH (09:27)
[2019-05-19] MEDS: FLONASE NASAL SPRAY ENOSTRIL SCH ×2 (09:27→21:00)
[2019-05-19] MEDS: LOPRESSOR TAB 25 MG PO SCH (09:28)
[2019-05-19] MEDS: BRILINTA PO SCH (09:28)
[2019-05-19] MEDS ORDERED: DEXFERRUM or INFED 1,000 MG in NS 500 ML IV 500 ML IV NR (09:30)
[2019-05-19] MEDS: VSL#3 PO SCH (09:30)
[2019-05-19] MEDS: MIRAPEX TAB 0.25 MG PO SCH (09:30)
[2019-05-19] MEDS: PROTONIX TAB 40 MG PO SCH (09:30)
[2019-05-19] MEDS: ZETIA TAB 10 MG PO SCH (09:31)
[2019-05-19] MEDS: ZESTRIL TAB 10 MG PO SCH (09:31)
[2019-05-19] MEDS: ZOLOFT PO SCH (09:34)
[2019-05-19] MEDS: LEVAQUIN PREMIX IV 500 MG 500 MG/100 ML BAG IV SCH (09:36)
[2019-05-19] MEDS: HEMOCYTE-PLUS PO SCH (11:20)
--- NOTE | 2019-05-19 11:27 | RAD ---
HISTORY: Congestion. Prior history of hypertension, diabetes and CVA. Study: Single-view chest, portably Comparison: 05/17/19. Findings: Left-sided subclavian line is present with the tip in the lower SVC. Trachea is midline. Heart size is upper normal. Increased interstitial markings are present bilaterally, likely indicating fluid overload or very mild CHF. No consolidation, pleural fluid or pneumothorax is seen. Acute osseous changes are identified. IMPRESSION: Upper normal heart size with increased interstitial markings bilaterally. Findings likely indicate fluid overload or very mild CHF. Reported By:
[2019-05-19 12:55] LABS: BASOPHILS % (AUTO) 0.4 % (0.2-1.0); EOSINOPHILS # (AUTO) 0.1 x10^3/uL (0.0-0.2); EOSINOPHILS % (AUTO) 4.3 % (0.9-2.9); HEMATOCRIT 25.2 % (36.0-47.0); HEMOGLOBIN 8.6 g/dL (12.0-16.0); LYMPHOCYTES # (AUTO) 0.7 X10^3/uL (1.3-2.9); LYMPHOCYTES % (AUTO) 22.2 % (21.0-51.0); MEAN CORPUSCULAR HEMOGLOBIN 28.1 pg (27.0-34.0); MEAN CORPUSCULAR VOLUME 82.5 fL (80.0-100.0); MEAN PLATELET VOLUME 7.5 fL (7.4-11.0); MONOCYTES # (AUTO) 0.2 x10^3/uL (0.3-0.8); MONOCYTES % (AUTO) 6.4 % (0.0-13.0); NEUTROPHILS # (AUTO) 2.1 x10^3/uL (2.2-4.8); NEUTROPHILS % (AUTO) 66.7 % (42.0-75.0); PLATELET COUNT 129 X10^3/uL (150.0-450.0); RED BLOOD COUNT 3.05 X10^6/uL (3.5-5.4); RED CELL DISTRIBUTION WIDTH 15.8 % (11.6-16.5); WHITE BLOOD COUNT 3.2 X10^3/uL (3.6-10.0)
[2019-05-19] MEDS: SNACK - Diabetic Appropriate PO SCH (21:00)
[2019-05-19] MEDS: NS 1000 ML 1,000 ML IV SCH (23:36)
[2019-05-20] MEDS: DUONEB 0.5 MG/3 MG NEB SCH ×6 (01:04→20:31)
[2019-05-20] MEDS: ZOSYN VIAL 3.375 GRAMS 3.375 G in NS 100 ML IV + SPIKE MINIBAG* 100 ML IV SCH ×3 (05:05→21:31)
[2019-05-20] MEDS: ROXICODONE TAB 5 MG PO SCH ×3 (05:06→21:31)
[2019-05-20] MEDS ORDERED: NS 250 ML IV 250 ML IV ONE (05:16)
[2019-05-20 05:27] LABS: BASOPHILS % (AUTO) 0.4 % (0.2-1.0); EOSINOPHILS # (AUTO) 0.3 x10^3/uL (0.0-0.2); EOSINOPHILS % (AUTO) 5.2 % (0.9-2.9); HEMATOCRIT 24.6 % (36.0-47.0); HEMOGLOBIN 8.4 g/dL (12.0-16.0); LYMPHOCYTES % (AUTO) 20.1 % (21.0-51.0); MEAN CORPUSCULAR HEMOGLOBIN 28.1 pg (27.0-34.0); MEAN CORPUSCULAR HGB CONC 34.2 g/dL (33.0-35.0); MEAN CORPUSCULAR VOLUME 82.2 fL (80.0-100.0); MEAN PLATELET VOLUME 7.8 fL (7.4-11.0); MONOCYTES # (AUTO) 0.3 x10^3/uL (0.3-0.8); MONOCYTES % (AUTO) 5.3 % (0.0-13.0); NEUTROPHILS # (AUTO) 3.3 x10^3/uL (2.2-4.8); PLATELET COUNT 133 X10^3/uL (150.0-450.0); RED BLOOD COUNT 2.99 X10^6/uL (3.5-5.4); RED CELL DISTRIBUTION WIDTH 16.1 % (11.6-16.5); WHITE BLOOD COUNT 4.8 X10^3/uL (3.6-10.0)
[2019-05-20 05:31] LABS: ALBUMIN 2.7 g/dL (3.4-5.0); ALKALINE PHOSPHATASE 83 Units/L (46-116); BLOOD UREA NITROGEN 11 mg/dL (7-18); CALCIUM 8.2 mg/dL (8.5-10.1); CARBON DIOXIDE 26.1 mmol/L (21-32); CHLORIDE 109 mmol/L (98-107); COR CA(FOR HYPOALB) 9.2 mg/dL (8.5-10.1); CREATININE 0.85 mg/dL (0.55-1.02); SODIUM 145 mmol/L (136-145); eGFR NON BLACK RACES > 60 (>60)
[2019-05-20] MEDS: NS 250 ML IV 250 ML IV SCH ×2 (05:53→18:38)
[2019-05-20 06:24] LABS: ASPARTATE AMINO TRANSFERASE 12 Units/L (15-37)
[2019-05-20 06:29] LABS: ALANINE AMINOTRANSFERASE 14 Units/L (12-78)
[2019-05-20] MEDS ORDERED: ZOLOFT PO ONE (07:43)
[2019-05-20] MEDS: ZOLOFT PO SCH (09:15)
[2019-05-20] MEDS: HEMOCYTE-PLUS PO SCH (09:16)
[2019-05-20] MEDS: BRILINTA PO SCH (09:16)
[2019-05-20] MEDS: LIPITOR TAB 40 MG PO SCH (09:16)
[2019-05-20] MEDS: LOPRESSOR TAB 25 MG PO SCH (09:17)
[2019-05-20] MEDS: ZETIA TAB 10 MG PO SCH (09:19)
[2019-05-20] MEDS: ABILIFY PO SCH (09:19)
[2019-05-20] MEDS: PROTONIX TAB 40 MG PO SCH (09:19)
[2019-05-20] MEDS: ZESTRIL TAB 10 MG PO SCH (09:19)
[2019-05-20] MEDS: VSL#3 PO SCH (09:19)
[2019-05-20] MEDS: FLONASE NASAL SPRAY ENOSTRIL SCH ×2 (09:20→21:30)
[2019-05-20] MEDS: MIRAPEX TAB 0.25 MG PO SCH (09:26)
[2019-05-20] MEDS: NS 1000 ML 1,000 ML IV SCH (17:56)
[2019-05-20] MEDS: SNACK - Diabetic Appropriate PO SCH (21:30)
[2019-05-20] MEDS ORDERED: TYLENOL 325 MG TAB PO ONE (22:45)
[2019-05-20] MEDS ORDERED: BENADRYL INJ 50 MG VIAL IV ONE (22:49)
[2019-05-21] MEDS: DUONEB 0.5 MG/3 MG NEB SCH ×6 (01:34→21:00)
[2019-05-21 03:53] LABS: BASOPHILS % (AUTO) 0.3 % (0.2-1.0); EOSINOPHILS # (AUTO) 0.3 x10^3/uL (0.0-0.2); EOSINOPHILS % (AUTO) 4.3 % (0.9-2.9); HEMATOCRIT 30.4 % (36.0-47.0); LYMPHOCYTES % (AUTO) 16.3 % (21.0-51.0); MEAN CORPUSCULAR HEMOGLOBIN 28.4 pg (27.0-34.0); MEAN CORPUSCULAR HGB CONC 34.1 g/dL (33.0-35.0); MEAN CORPUSCULAR VOLUME 83.3 fL (80.0-100.0); MEAN PLATELET VOLUME 7.3 fL (7.4-11.0); MONOCYTES # (AUTO) 0.3 x10^3/uL (0.3-0.8); MONOCYTES % (AUTO) 4.9 % (0.0-13.0); NEUTROPHILS # (AUTO) 4.5 x10^3/uL (2.2-4.8); NEUTROPHILS % (AUTO) 74.2 % (42.0-75.0); PLATELET COUNT 147 X10^3/uL (150.0-450.0); RED BLOOD COUNT 3.66 X10^6/uL (3.5-5.4); RED CELL DISTRIBUTION WIDTH 16.5 % (11.6-16.5); WHITE BLOOD COUNT 6.1 X10^3/uL (3.6-10.0)
[2019-05-21 03:55] LABS: HEMOGLOBIN 10.4 g/dL (12.0-16.0)
[2019-05-21 03:59] LABS: ALANINE AMINOTRANSFERASE 23 Units/L (12-78); ALBUMIN 2.8 g/dL (3.4-5.0); ALKALINE PHOSPHATASE 89 Units/L (46-116); BLOOD UREA NITROGEN 7 mg/dL (7-18); CARBON DIOXIDE 27.3 mmol/L (21-32); CHLORIDE 107 mmol/L (98-107); COR NA(FOR HYPERGLY) 144 mmol/L (136-145); CREATININE 0.82 mg/dL (0.55-1.02); SODIUM 143 mmol/L (136-145); TOTAL PROTEIN 6.3 g/dL (6.4-8.2); eGFR NON BLACK RACES > 60 (>60)
[2019-05-21] MEDS ORDERED: K-DUR TAB 20 MEQ PO PRN (04:05)
[2019-05-21] MEDS ORDERED: KLOR-CON PO PRN (04:05)
[2019-05-21] MEDS ORDERED: POTASSIUM CHL 40 MEQ/NS 0.45% 500 ML IV PRN (04:05)
[2019-05-21] MEDS ORDERED: MICRO K EXTEN CAP 10 MEQ PO PRN (04:05)
[2019-05-21] MEDS ORDERED: POTASSIUM CHLORIDE LIQ 20 MEQ UDC PO PRN (04:05)
[2019-05-21] MEDS ORDERED: POTASSIUM CHL 60 MEQ/NS 0.45% 500 ML IV PRN (04:05)
[2019-05-21 04:22] LABS: ASPARTATE AMINO TRANSFERASE 20 Units/L (15-37)
[2019-05-21] MEDS: ZOSYN VIAL 3.375 GRAMS 3.375 G in NS 100 ML IV + SPIKE MINIBAG* 100 ML IV SCH ×3 (05:01→21:00)
[2019-05-21] MEDS: NS 250 ML IV 250 ML IV SCH ×3 (05:01→20:55)
[2019-05-21] MEDS: ROXICODONE TAB 5 MG PO SCH ×3 (05:02→21:01)
[2019-05-21] MEDS: NS 1000 ML 1,000 ML IV SCH ×2 (05:02→21:03)
[2019-05-21] MEDS: MAGNESIUM SULFATE 1 GRAM/100 mL PREMIX 1 GM/100 ML BAG IV PRN ×3 (06:07→09:44)
[2019-05-21] MEDS ORDERED: ZOLOFT PO ONE (08:47)
[2019-05-21] MEDS: VSL#3 PO SCH (09:45)
[2019-05-21] MEDS: HEMOCYTE-PLUS PO SCH (09:46)
[2019-05-21] MEDS: LIPITOR TAB 40 MG PO SCH (09:46)
[2019-05-21] MEDS: BRILINTA PO SCH (09:46)
[2019-05-21] MEDS: ZOLOFT PO SCH (09:46)
[2019-05-21] MEDS: ZESTRIL TAB 10 MG PO SCH (09:47)
[2019-05-21] MEDS: MIRAPEX TAB 0.25 MG PO SCH (09:47)
[2019-05-21] MEDS: LOPRESSOR TAB 25 MG PO SCH (09:47)
[2019-05-21] MEDS: PROTONIX TAB 40 MG PO SCH (09:47)
[2019-05-21] MEDS: FLONASE NASAL SPRAY ENOSTRIL SCH ×2 (09:48→21:02)
[2019-05-21] MEDS: ZETIA TAB 10 MG PO SCH (09:49)
[2019-05-21] MEDS: ABILIFY PO SCH (09:56)
[2019-05-21 14:58] LABS: MAGNESIUM 2.6 mg/dL (1.7-2.9)
[2019-05-21] MEDS: SNACK - Diabetic Appropriate PO SCH (20:55)
[2019-05-22] MEDS: DUONEB 0.5 MG/3 MG NEB SCH ×6 (01:40→20:46)
[2019-05-22 05:20] LABS: BASOPHILS % (AUTO) 0.4 % (0.2-1.0); EOSINOPHILS # (AUTO) 0.5 x10^3/uL (0.0-0.2); HEMATOCRIT 32.3 % (36.0-47.0); HEMOGLOBIN 11.1 g/dL (12.0-16.0); LYMPHOCYTES # (AUTO) 1.1 X10^3/uL (1.3-2.9); MEAN CORPUSCULAR HEMOGLOBIN 28.6 pg (27.0-34.0); MEAN CORPUSCULAR HGB CONC 34.5 g/dL (33.0-35.0); MEAN CORPUSCULAR VOLUME 82.9 fL (80.0-100.0); MEAN PLATELET VOLUME 7.9 fL (7.4-11.0); MONOCYTES # (AUTO) 0.4 x10^3/uL (0.3-0.8); MONOCYTES % (AUTO) 4.9 % (0.0-13.0); NEUTROPHILS # (AUTO) 5.7 x10^3/uL (2.2-4.8); NEUTROPHILS % (AUTO) 73.7 % (42.0-75.0); PLATELET COUNT 163 X10^3/uL (150.0-450.0); RED BLOOD COUNT 3.89 X10^6/uL (3.5-5.4); WHITE BLOOD COUNT 7.7 X10^3/uL (3.6-10.0)
[2019-05-22 05:26] LABS: ALANINE AMINOTRANSFERASE 21 Units/L (12-78); ALBUMIN 3.1 g/dL (3.4-5.0); ALKALINE PHOSPHATASE 93 Units/L (46-116); ASPARTATE AMINO TRANSFERASE 17 Units/L (15-37); BLOOD UREA NITROGEN 7 mg/dL (7-18); CALCIUM 8.4 mg/dL (8.5-10.1); CARBON DIOXIDE 26.2 mmol/L (21-32); CHLORIDE 104 mmol/L (98-107); COR CA(FOR HYPOALB) 9.1 mg/dL (8.5-10.1); CREATININE 0.73 mg/dL (0.55-1.02); SODIUM 139 mmol/L (136-145); TOTAL PROTEIN 6.8 g/dL (6.4-8.2); eGFR NON BLACK RACES > 60 (>60)
[2019-05-22] MEDS: ROXICODONE TAB 5 MG PO SCH ×3 (05:43→21:19)
[2019-05-22] MEDS: ZOSYN VIAL 3.375 GRAMS 3.375 G in NS 100 ML IV + SPIKE MINIBAG* 100 ML IV SCH ×3 (05:44→21:19)
[2019-05-22] MEDS: LIPITOR TAB 40 MG PO SCH (09:24)
[2019-05-22] MEDS: BRILINTA PO SCH (09:24)
[2019-05-22] MEDS: PROTONIX TAB 40 MG PO SCH (09:24)
[2019-05-22] MEDS: ZESTRIL TAB 10 MG PO SCH (09:25)
[2019-05-22] MEDS: LOPRESSOR TAB 25 MG PO SCH (09:25)
[2019-05-22] MEDS: VSL#3 PO SCH (09:25)
[2019-05-22] MEDS: ZOLOFT PO SCH (09:25)
[2019-05-22] MEDS: ABILIFY PO SCH (09:25)
[2019-05-22] MEDS: HEMOCYTE-PLUS PO SCH (09:25)
[2019-05-22] MEDS: ZETIA TAB 10 MG PO SCH (09:25)
[2019-05-22] MEDS: FLONASE NASAL SPRAY ENOSTRIL SCH ×2 (09:26→21:18)
[2019-05-22] MEDS: MIRAPEX TAB 0.25 MG PO SCH (09:44)
[2019-05-22] MEDS: NS 250 ML IV 250 ML IV SCH ×2 (14:34→22:42)
--- NOTE | 2019-05-22 14:35 | PCM.PROG ---
Progress Note Subjective Subjective: 54 WF ER ADMISSION ON 05/15/2019 WITH FAMILY REPORTING INCREASED LETHARGY AND CHEST CONGESTION. PT WAS STARTED ON IV ATBX, AND RESP THERAPY. FAMILY REPORTS SHE HAS BEEN HAVING COUGHING WHILE EATING, THEY WERE CONCERNED ABOUT POSSIBLE ASPIRATION. Pt seen this morning. She is pleasantly confused. No acute events overnight. Pt awaiting shelter placement at [place] when available and medically stable. Past Medical Family Social History Past Med/Fam/Surg Hx: No changes since H&P Allergies: Allergies morphine Allergy (Verified 05/15/19 18:29) Review of Systems ROS: No change since H&P Vital Signs and I&O's Vital Signs: Temperature 98.0 F Pulse Rate [Left Brachial] 70 Pulse Rate 73 Respiratory Rate 20 Blood Pressure [Left Arm] 156/66 Blood Pressure [Right Arm] 115/58 Blood Pressure 122/58 O2 Sat by Pulse Oximetry 100 Intake and Output: Intake & Output 05/19/19 05/20/19 05/21/19 05/22/19 23:59 23:59 23:59 23:59 Intake Total 2520 / 2520 1600 / 1600 2591 / 2591 425 / 425 Balance 2520 / 2520 1600 / 1600 2591 / 2591 425 / 425 Physical Exam Oriented: Unable to test Eyes: Normal Ear: Normal Nose: Normal Throat: Normal Respiratory: Generalized and Rhonchi Cardiovascular: Normal Auscultation: Bowel Sounds: Normal Tenderness: Normal Skin: Normal Musculoskeletal: Right, Arm, Leg, Motor Deficit and Sensory Deficit Mood Description: Calm (LIMITED VERBAL RESPONES, NODS, YES AND NO APPROPRIATELY) Speech Pattern: Unclear Laboratory and Diagnostics Result Diagrams: 05/22/19 04:44 05/22/19 04:44 Labs: 05/15/19 19:00 Blood Blood Culture - Final 05/16/19 06:07 Urine,Clean Catch Urine Culture - Final Enterococcus Faecalis Laboratory WBC 7.7 X10^3/uL (3.6-10.0) 05/22/19 04:44 RBC 3.89 X10^6/uL (3.5-5.4) 05/22/19 04:44 Hgb 11.1 g/dL (12.0-16.0) L 05/22/19 04:44 Hct 32.3 % (36.0-47.0) L 05/22/19 04:44 MCV 82.9 fL (80.0-100.0) 05/22/19 04:44 MCH 28.6 pg (27.0-34.0) 05/22/19 04:44 MCHC 34.5 g/dL (33.0-35.0) 05/22/19 04:44 RDW 17.0 % (11.6-16.5) H 05/22/19 04:44 Plt Count 163 X10^3/uL (150.0-450.0) 05/22/19 04:44 Plt Count Comment Decreased (ADEQUATE) A 05/19/19 04:42 MPV 7.9 fL (7.4-11.0) 05/22/19 04:44 Neut % (Auto) 73.7 % (42.0-75.0) 05/22/19 04:44 Lymph % (Auto) 14.0 % (21.0-51.0) L 05/22/19 04:44 [place] % (Auto) 4.9 % (0.0-13.0) 05/22/19 04:44 Eos % (Auto) 7.0 % (0.9-2.9) H 05/22/19 04:44 Baso % (Auto) 0.4 % (0.2-1.0) 05/22/19 04:44 Neut # (Auto) 5.7 x10^3/uL (2.2-4.8) H 05/22/19 04:44 Lymph # (Auto) 1.1 X10^3/uL (1.3-2.9) L 05/22/19 04:44 [place] # (Auto) 0.4 x10^3/uL (0.3-0.8) 05/22/19 04:44 Eos # (Auto) 0.5 x10^3/uL (0.0-0.2) H 05/22/19 04:44 Baso # (Auto) 0.0 X10^3/uL (0.0-0.1) 05/22/19 04:44 Absolute Nucleated RBC 0.0 /100WBC 05/22/19 04:44 Total Counted 100 05/16/19 04:45 Neutrophils % (Manual) 94 % (39-76) H 05/16/19 04:45 Lymphocytes % (Manual) 6 % (13-43) L 05/16/19 04:45 Plt Morphology Comment Normal (NORMAL) 05/19/19 04:42 RBC Morphology Abnormal (NORMAL) A 05/19/19 04:42 Microcytosis Slight A 05/19/19 04:42 Sample Site Rr 05/16/19 04:15 ABG pH 7.370 (7.35-7.45) 05/16/19 04:15 ABG pCO2 46.0 mmHg (35.0-45.0) H 05/16/19 04:15 ABG pO2 88.0 mmHg (80.0-100.0) 05/16/19 04:15 ABG HCO3 26.6 mmol/L (22-26) H 05/16/19 04:15 ABG O2 Saturation 96.0 % (90-100) 05/16/19 04:15 ABG Base Excess 0.9 mmol/L (-2.0-2.0) 05/16/19 04:15 Abdulaziz Test Pos 05/16/19 04:15 A-a Gradient 54.0 mmHg 05/16/19 04:15 FiO2 28.0 05/16/19 04:15 Blood Gas Comments Jose R well ae 05/16/19 04:15 Sodium 139 mmol/L (136-145) 05/22/19 04:44 Corrected Sodium TNP 05/22/19 04:44 Potassium 3.6 mmol/L (3.5-5.1) 05/22/19 04:44 Chloride 104 mmol/L (98-107) 05/22/19 04:44 Carbon Dioxide 26.2 mmol/L (21-32) 05/22/19 04:44 BUN 7 mg/dL (7-18) 05/22/19 04:44 Creatinine 0.73 mg/dL (0.55-1.02) 05/22/19 04:44 Est GFR (MDRD) Af Amer > 60 (>60) 05/22/19 04:44 Est GFR (MDRD) Non-Af > 60 (>60) 05/22/19 04:44 Glucose 105 mg/dL (65-99) H 05/22/19 04:44 POC Glucose (mg/dL) 150 mg/dL (65-99) H 05/22/19 11:11 Calcium 8.4 mg/dL (8.5-10.1) L 05/22/19 04:44 Corrected Calcium 9.1 mg/dL (8.5-10.1) 05/22/19 04:44 Magnesium 2.6 mg/dL (1.7-2.9) 05/21/19 14:41 Iron 25 ug/dL (50-175) L 05/18/19 05:00 Transferrin 98 mg/dL (202-364) L 05/18/19 05:00 Ferritin 367 ng/mL (8-252) H 05/18/19 05:00 Total Bilirubin 0.60 mg/dL (0.2-1.0) 05/22/19 04:44 AST 17 Units/L (15-37) 05/22/19 04:44 ALT 21 Units/L (12-78) 05/22/19 04:44 Alkaline Phosphatase 93 Units/L (46-116) 05/22/19 04:44 Total Protein 6.8 g/dL (6.4-8.2) 05/22/19 04:44 Albumin 3.1 g/dL (3.4-5.0) L 05/22/19 04:44 Globulin 3.7 g/dL (2.5-4.5) 05/22/19 04:44 Albumin/Globulin Ratio 0.8 Ratio (1.1-2.1) L 05/22/19 04:44 Vitamin B12 1238 pg/mL (193-986) H 05/18/19 05:00 Folate > 20.0 ng/mL (>8.6) 05/18/19 05:00 Specimen Type Catherized urine 05/16/19 06:07 Urine Color Pale yellow (YELLOW) 05/16/19 06:07 Urine Appearance Clear (CLEAR) 05/16/19 06:07 Urine pH 5.0 (5.0 - 8.0) 05/16/19 06:07 Ur Specific [place] 1.020 (1.000-1.030) 05/16/19 06:07 Urine Protein 1+ (NEGATIVE) 05/16/19 06:07 Urine Glucose (UA) 4+ (NEGATIVE) 05/16/19 06:07 Urine Ketones Negative (NEGATIVE) 05/16/19 06:07 Urine Occult Blood 3+ (NEGATIVE) 05/16/19 06:07 Urine Nitrite Negative (NEGATIVE) 05/16/19 06:07 Urine Bilirubin Negative (NEGATIVE) 05/16/19 06:07 Urine Urobilinogen Normal (NORMAL) 05/16/19 06:07 Ur Leukocyte Esterase 2+ (NEGATIVE) 05/16/19 06:07 Urine RBC 0-2 /HPF (0-3) 05/16/19 06:07 Urine WBC 0-2 /HPF (0-5) 05/16/19 06:07 Ur Squamous Epith Cells Rare /HPF (NEGATIVE) 05/16/19 06:07 Amorphous Sediment Trace /HPF (NEGATIVE) 05/16/19 06:07 Urine Bacteria 2+ /HPF (NEGATIVE) 05/16/19 06:07 Urine Mucus Few /HPF (NEGATIVE) 05/16/19 06:07 Ur Culture Indicated? No/not indicated 05/16/19 06:07 Stool Description 15g unformed brown 05/20/19 11:55 Stl Occult Blood (IFOB) Positive (NEGATIVE) A 05/20/19 11:55 Blood Type A POSITIVE 05/20/19 19:27 Antibody Screen Negative 05/20/19 19:27 Crossmatch See Detail 05/20/19 19:27 Plan (1) COPD exacerbation: Status: Acute Plan: SputumCx:E. faecalis. Continue Margarita Vidal, (2) Altered mental status: Status: Acute Qualifiers: Altered mental status type: transient alteration of awareness Qualified Code(s): R40.4 - Transient alteration of awareness Plan: CT HEAD W/O ACUTE CHANGES FROM ER VISIT. No acute changes. (3) Diabetes: Status: Acute (4) Malignant neoplasm of liver: Status: Acute (5) CVA, old, aphasia: Status: Acute
[2019-05-22] MEDS: SNACK - Diabetic Appropriate PO SCH (21:18)
[2019-05-22] MEDS: NS 1000 ML 1,000 ML IV SCH (22:41)
[2019-05-22] MEDS ORDERED: ZANAFLEX PO ONE (23:29)
[2019-05-22] MEDS ORDERED: ZANAFLEX ONE (23:30)
[2019-05-23] MEDS: DUONEB 0.5 MG/3 MG NEB SCH ×6 (00:30→20:14)
[2019-05-23] MEDS: NS 250 ML IV 250 ML IV SCH ×2 (01:07→12:19)
[2019-05-23 05:26] LABS: BLOOD UREA NITROGEN 11 mg/dL (7-18); CALCIUM 8.2 mg/dL (8.5-10.1); CARBON DIOXIDE 25.9 mmol/L (21-32); CHLORIDE 105 mmol/L (98-107); COR NA(FOR HYPERGLY) 142 mmol/L (136-145); CREATININE 1.06 mg/dL (0.55-1.02); MAGNESIUM 1.7 mg/dL (1.7-2.9); SODIUM 141 mmol/L (136-145); eGFR NON BLACK RACES 57 (>60)
[2019-05-23] MEDS: ROXICODONE TAB 5 MG PO SCH ×3 (06:11→21:16)
[2019-05-23] MEDS: ZOSYN VIAL 3.375 GRAMS 3.375 G in NS 100 ML IV + SPIKE MINIBAG* 100 ML IV SCH ×4 (06:11→21:15)
[2019-05-23] MEDS: K-RIDER 10 MEQ/NS 100 ML 10 MEQ/100 ML BAG IV PRN ×2 (07:00→08:00)
[2019-05-23] MEDS: ABILIFY PO SCH (09:22)
[2019-05-23] MEDS: LOPRESSOR TAB 25 MG PO SCH (09:23)
[2019-05-23] MEDS: ZETIA TAB 10 MG PO SCH (09:24)
[2019-05-23] MEDS: ZESTRIL TAB 10 MG PO SCH (09:25)
[2019-05-23] MEDS: PROTONIX TAB 40 MG PO SCH (09:25)
[2019-05-23] MEDS: HEMOCYTE-PLUS PO SCH (09:25)
[2019-05-23] MEDS: VSL#3 PO SCH (09:26)
[2019-05-23] MEDS: LIPITOR TAB 40 MG PO SCH (09:26)
[2019-05-23] MEDS: ZOLOFT PO SCH (09:27)
[2019-05-23] MEDS: BRILINTA PO SCH (09:28)
[2019-05-23] MEDS: FLONASE NASAL SPRAY ENOSTRIL SCH ×2 (09:29→21:14)
[2019-05-23] MEDS: MIRAPEX TAB 0.25 MG PO SCH (09:54)
[2019-05-23] MEDS ORDERED: DUONEB 0.5 MG/3 MG ONE (11:23)
[2019-05-23] MEDS: NEURONTIN CAP 300 MG PO SCH ×2 (12:22→21:15)
[2019-05-23] MEDS: ZANAFLEX PO SCH ×3 (12:28→23:47)
--- NOTE | 2019-05-23 13:29 | PCM.PROG ---
Progress Note Subjective Subjective: 54 WF ER ADMISSION ON 05/15/2019 WITH FAMILY REPORTING INCREASED LETHARGY AND CHEST CONGESTION. PT WAS STARTED ON IV ATBX, AND RESP THERAPY. FAMILY REPORTS SHE HAS BEEN HAVING COUGHING WHILE EATING, THEY WERE CONCERNED ABOUT POSSIBLE ASPIRATION. Pt seen this morning. Patient was having muscle spasms and feeling restless overnight. She was taking tizanidine and gabapentin at home. Pt awaiting skilled nursing placement at [facility] when available and medically stable. Past Medical Family Social History Past Med/Fam/Surg Hx: No changes since H&P Allergies: Allergies morphine Allergy (Verified 05/15/19 18:29) Review of Systems ROS: No change since H&P Vital Signs and I&O's Vital Signs: Temperature 98.0 F Pulse Rate [Left Brachial] 69 Pulse Rate 69 Respiratory Rate 18 Blood Pressure [Left Arm] 140/67 Blood Pressure [Right Arm] 115/58 Blood Pressure 122/58 O2 Sat by Pulse Oximetry 100 Intake and Output: Intake & Output 05/20/19 05/21/19 05/22/19 05/23/19 23:59 23:59 23:59 23:59 Intake Total 1600 / 1600 2591 / 2591 1430 / 1430 50 / 50 Balance 1600 / 1600 2591 / 2591 1430 / 1430 50 / 50 Physical Exam Oriented: Unable to test Eyes: Normal Ear: Normal Nose: Normal Throat: Normal Respiratory: Generalized and Rhonchi Cardiovascular: Normal : Normal Auscultation: Bowel Sounds: Normal Tenderness: Normal Skin: Normal Musculoskeletal: Right, Arm, Leg, Motor Deficit and Sensory Deficit Mood Description: Calm (LIMITED VERBAL RESPONES, NODS, YES AND NO APPROPRIATELY) Speech Pattern: Unclear Laboratory and Diagnostics Result Diagrams: 05/22/19 04:44 05/23/19 04:48 Labs: 05/15/19 19:00 Blood Blood Culture - Final 05/16/19 06:07 Urine,Clean Catch Urine Culture - Final Enterococcus Faecalis Laboratory WBC 7.7 X10^3/uL (3.6-10.0) 05/22/19 04:44 RBC 3.89 X10^6/uL (3.5-5.4) 05/22/19 04:44 Hgb 11.1 g/dL (12.0-16.0) L 05/22/19 04:44 Hct 32.3 % (36.0-47.0) L 05/22/19 04:44 MCV 82.9 fL (80.0-100.0) 05/22/19 04:44 MCH 28.6 pg (27.0-34.0) 05/22/19 04:44 MCHC 34.5 g/dL (33.0-35.0) 05/22/19 04:44 RDW 17.0 % (11.6-16.5) H 05/22/19 04:44 Plt Count 163 X10^3/uL (150.0-450.0) 05/22/19 04:44 Plt Count Comment Decreased (ADEQUATE) A 05/19/19 04:42 MPV 7.9 fL (7.4-11.0) 05/22/19 04:44 Neut % (Auto) 73.7 % (42.0-75.0) 05/22/19 04:44 Lymph % (Auto) 14.0 % (21.0-51.0) L 05/22/19 04:44 [place] % (Auto) 4.9 % (0.0-13.0) 05/22/19 04:44 Eos % (Auto) 7.0 % (0.9-2.9) H 05/22/19 04:44 Baso % (Auto) 0.4 % (0.2-1.0) 05/22/19 04:44 Neut # (Auto) 5.7 x10^3/uL (2.2-4.8) H 05/22/19 04:44 Lymph # (Auto) 1.1 X10^3/uL (1.3-2.9) L 05/22/19 04:44 [place] # (Auto) 0.4 x10^3/uL (0.3-0.8) 05/22/19 04:44 Eos # (Auto) 0.5 x10^3/uL (0.0-0.2) H 05/22/19 04:44 Baso # (Auto) 0.0 X10^3/uL (0.0-0.1) 05/22/19 04:44 Absolute Nucleated RBC 0.0 /100WBC 05/22/19 04:44 Total Counted 100 05/16/19 04:45 Neutrophils % (Manual) 94 % (39-76) H 05/16/19 04:45 Lymphocytes % (Manual) 6 % (13-43) L 05/16/19 04:45 Plt Morphology Comment Normal (NORMAL) 05/19/19 04:42 RBC Morphology Abnormal (NORMAL) A 05/19/19 04:42 Microcytosis Slight A 05/19/19 04:42 Sample Site Rr 05/16/19 04:15 ABG pH 7.370 (7.35-7.45) 05/16/19 04:15 ABG pCO2 46.0 mmHg (35.0-45.0) H 05/16/19 04:15 ABG pO2 88.0 mmHg (80.0-100.0) 05/16/19 04:15 ABG HCO3 26.6 mmol/L (22-26) H 05/16/19 04:15 ABG O2 Saturation 96.0 % (90-100) 05/16/19 04:15 ABG Base Excess 0.9 mmol/L (-2.0-2.0) 05/16/19 04:15 Abdulaziz Test Pos 05/16/19 04:15 A-a Gradient 54.0 mmHg 05/16/19 04:15 FiO2 28.0 05/16/19 04:15 Blood Gas Comments Jose R well ae 05/16/19 04:15 Sodium 141 mmol/L (136-145) 05/23/19 04:48 Corrected Sodium 142 mmol/L (136-145) 05/23/19 04:48 Potassium 3.4 mmol/L (3.5-5.1) L 05/23/19 04:48 Chloride 105 mmol/L (98-107) 05/23/19 04:48 Carbon Dioxide 25.9 mmol/L (21-32) 05/23/19 04:48 BUN 11 mg/dL (7-18) 05/23/19 04:48 Creatinine 1.06 mg/dL (0.55-1.02) H 05/23/19 04:48 Est GFR (MDRD) Af Amer > 60 (>60) 05/23/19 04:48 Est GFR (MDRD) Non-Af 57 (>60) L 05/23/19 04:48 Glucose 139 mg/dL (65-99) H 05/23/19 04:48 POC Glucose (mg/dL) 156 mg/dL (65-99) H 05/23/19 12:17 Calcium 8.2 mg/dL (8.5-10.1) L 05/23/19 04:48 Corrected Calcium 9.1 mg/dL (8.5-10.1) 05/22/19 04:44 Magnesium 1.7 mg/dL (1.7-2.9) 05/23/19 04:48 Iron 25 ug/dL (50-175) L 05/18/19 05:00 Transferrin 98 mg/dL (202-364) L 05/18/19 05:00 Ferritin 367 ng/mL (8-252) H 05/18/19 05:00 Total Bilirubin 0.60 mg/dL (0.2-1.0) 05/22/19 04:44 AST 17 Units/L (15-37) 05/22/19 04:44 ALT 21 Units/L (12-78) 05/22/19 04:44 Alkaline Phosphatase 93 Units/L (46-116) 05/22/19 04:44 Total Protein 6.8 g/dL (6.4-8.2) 05/22/19 04:44 Albumin 3.1 g/dL (3.4-5.0) L 05/22/19 04:44 Globulin 3.7 g/dL (2.5-4.5) 05/22/19 04:44 Albumin/Globulin Ratio 0.8 Ratio (1.1-2.1) L 05/22/19 04:44 Vitamin B12 1238 pg/mL (193-986) H 05/18/19 05:00 Folate > 20.0 ng/mL (>8.6) 05/18/19 05:00 Specimen Type Catherized urine 05/16/19 06:07 Urine Color Pale yellow (YELLOW) 05/16/19 06:07 Urine Appearance Clear (CLEAR) 05/16/19 06:07 Urine pH 5.0 (5.0 - 8.0) 05/16/19 06:07 Ur Specific [place] 1.020 (1.000-1.030) 05/16/19 06:07 Urine Protein 1+ (NEGATIVE) 05/16/19 06:07 Urine Glucose (UA) 4+ (NEGATIVE) 05/16/19 06:07 Urine Ketones Negative (NEGATIVE) 05/16/19 06:07 Urine Occult Blood 3+ (NEGATIVE) 05/16/19 06:07 Urine Nitrite Negative (NEGATIVE) 05/16/19 06:07 Urine Bilirubin Negative (NEGATIVE) 05/16/19 06:07 Urine Urobilinogen Normal (NORMAL) 05/16/19 06:07 Ur Leukocyte Esterase 2+ (NEGATIVE) 05/16/19 06:07 Urine RBC 0-2 /HPF (0-3) 05/16/19 06:07 Urine WBC 0-2 /HPF (0-5) 05/16/19 06:07 Ur Squamous Epith Cells Rare /HPF (NEGATIVE) 05/16/19 06:07 Amorphous Sediment Trace /HPF (NEGATIVE) 05/16/19 06:07 Urine Bacteria 2+ /HPF (NEGATIVE) 05/16/19 06:07 Urine Mucus Few /HPF (NEGATIVE) 05/16/19 06:07 Ur Culture Indicated? No/not indicated 05/16/19 06:07 Stool Description 15g unformed brown 05/20/19 11:55 Stl Occult Blood (IFOB) Positive (NEGATIVE) A 05/20/19 11:55 Blood Type A POSITIVE 05/20/19 19:27 Antibody Screen Negative 05/20/19 19:27 Crossmatch See Detail 05/20/19 19:27 Plan (1) Muscle spasms of both lower extremities: Status: Acute Plan: - will resume tizanidine and start low dose gabapentin. Discussed side effects of these medications with family at bedside, avoid other sedating medications. (2) COPD exacerbation: Status: Acute Plan: SputumCx:E. faecalis. Continue Margarita Vidal, (3) Altered mental status: Status: Acute Qualifiers: Altered mental status type: transient alteration of awareness Qualified Code(s): R40.4 - Transient alteration of awareness Plan: CT HEAD W/O ACUTE CHANGES FROM ER VISIT. No acute changes. (4) Diabetes: Status: Acute (5) Malignant neoplasm of liver: Status: Acute (6) CVA, old, aphasia: Status: Acute (7) Hypokalemia: Status: Acute
[2019-05-23] MEDS: SNACK - Diabetic Appropriate PO SCH (21:14)
[2019-05-23] MEDS: NS 1000 ML 1,000 ML IV SCH (21:16)
[2019-05-24] MEDS: NS 250 ML IV 250 ML IV SCH ×2 (00:50→15:08)
[2019-05-24] MEDS: DUONEB 0.5 MG/3 MG NEB SCH ×4 (01:09→12:35)
[2019-05-24] MEDS: ROXICODONE TAB 5 MG PO SCH ×2 (05:03→15:43)
[2019-05-24] MEDS: ZANAFLEX PO SCH (05:04)
[2019-05-24] MEDS: ZOSYN VIAL 3.375 GRAMS 3.375 G in NS 100 ML IV + SPIKE MINIBAG* 100 ML IV SCH (05:04)
[2019-05-24 05:27] LABS: BASOPHILS % (AUTO) 0.6 % (0.2-1.0); EOSINOPHILS # (AUTO) 0.5 x10^3/uL (0.0-0.2); EOSINOPHILS % (AUTO) 6.7 % (0.9-2.9); HEMATOCRIT 32.3 % (36.0-47.0); HEMOGLOBIN 10.8 g/dL (12.0-16.0); LYMPHOCYTES # (AUTO) 1.3 X10^3/uL (1.3-2.9); LYMPHOCYTES % (AUTO) 19.3 % (21.0-51.0); MEAN CORPUSCULAR HEMOGLOBIN 28.3 pg (27.0-34.0); MEAN CORPUSCULAR HGB CONC 33.6 g/dL (33.0-35.0); MEAN CORPUSCULAR VOLUME 84.2 fL (80.0-100.0); MEAN PLATELET VOLUME 7.5 fL (7.4-11.0); MONOCYTES # (AUTO) 0.4 x10^3/uL (0.3-0.8); MONOCYTES % (AUTO) 6.4 % (0.0-13.0); NEUTROPHILS # (AUTO) 4.6 x10^3/uL (2.2-4.8); PLATELET COUNT 189 X10^3/uL (150.0-450.0); RED BLOOD COUNT 3.84 X10^6/uL (3.5-5.4); WHITE BLOOD COUNT 6.9 X10^3/uL (3.6-10.0)
[2019-05-24 05:44] LABS: BLOOD UREA NITROGEN 10 mg/dL (7-18); CALCIUM 8.4 mg/dL (8.5-10.1); CARBON DIOXIDE 25.8 mmol/L (21-32); CHLORIDE 107 mmol/L (98-107); CREATININE 0.85 mg/dL (0.55-1.02); MAGNESIUM 1.6 mg/dL (1.7-2.9); SODIUM 142 mmol/L (136-145); eGFR NON BLACK RACES > 60 (>60)
--- NOTE | 2019-05-24 05:59 | RAD ---
History: COPD Study: Portable AP chest Comparison: May 19, 2019 Findings: The lungs are grossly clear and the heart size is normal. There is an unchanged left subclavian line with the tip in the SVC. There is no edema or effusion. There are cholecystectomy clips. Impression: No evidence for acute cardiopulmonary disease Reported By:
[2019-05-24] MEDS ORDERED: ZOLOFT PO ONE (08:33)
[2019-05-24] MEDS: ABILIFY PO SCH (09:44)
[2019-05-24] MEDS: VSL#3 PO SCH (09:45)
[2019-05-24] MEDS: BRILINTA PO SCH (09:45)
[2019-05-24] MEDS: ZESTRIL TAB 10 MG PO SCH (09:46)
[2019-05-24] MEDS: HEMOCYTE-PLUS PO SCH (09:46)
[2019-05-24] MEDS: ZETIA TAB 10 MG PO SCH (09:46)
[2019-05-24] MEDS: NEURONTIN CAP 300 MG PO SCH (09:46)
[2019-05-24] MEDS: ZOLOFT PO SCH (09:47)
[2019-05-24] MEDS: MIRAPEX TAB 0.25 MG PO SCH (09:48)
[2019-05-24] MEDS: LOPRESSOR TAB 25 MG PO SCH (09:48)
[2019-05-24] MEDS: LIPITOR TAB 40 MG PO SCH (09:49)
[2019-05-24] MEDS: PROTONIX TAB 40 MG PO SCH (09:49)
[2019-05-24] MEDS: MAGNESIUM SULFATE 1 GRAM/100 mL PREMIX 1 GM/100 ML BAG IV PRN ×2 (09:50→11:00)
[2019-05-24] MEDS: FLONASE NASAL SPRAY ENOSTRIL SCH (09:57)
[2019-05-24] MEDS: AMOXIL CAP 500 MG PO SCH ×2 (11:00→15:42)
--- NOTE | 2019-05-24 13:37 | RAD ---
History: Decreased bowel sounds Study: KUB Comparison: January 29, 2018 Findings: There is a prominent amount of stool in the rectum. There are coils in the aorta and common iliac arteries and right common femoral artery to the superficial femoral artery on the right. There are cholecystectomy clips. No urinary tract definite calcification is demonstrated. There is no small bowel gaseous distention. There are fine sutures implying bowel anastomosis projecting in the right quadrant of the abdomen. Impression: No definite evidence for acute disease Reported By:
[2019-05-24] MEDS ORDERED: DULCOLAX SUPPOSITORY 10 MG RECTAL ONE (14:16)
[2019-05-24] MEDS ORDERED: DULCOLAX SUPPOSITORY 10 MG ONE (14:17)
[2019-05-24 15:07] VITALS: BP 146/67
[2019-05-24] MEDS ORDERED: ZANAFLEX PO SCH (21:00)
[2019-05-24] MEDS ORDERED: MIRAPEX TAB 0.25 MG ONE (21:31)
[2019-05-24] MEDS ORDERED: ZETIA TAB 10 MG ONE (21:31)
== END 2019-05-24 15:40 | DRG 191 ==
LOC: ER 18:30 → MED/SURG 18:30 → OBSVTOIN 22:43
PROVIDERS: ADMIT Internal Medicine; ATTEND Internal Medicine
DX: R26.89 Other abnormalities of gait and mobility; D50.8 Other iron deficiency anemias; E87.6 Hypokalemia; K21.9 Gastro-esophageal reflux disease without esophagitis; I25.10 Atherosclerotic heart disease of native coronary artery without angina pectoris; E86.0 Dehydration; I87.2 Venous insufficiency (chronic) (peripheral); J44.1 Chronic obstructive pulmonary disease with (acute) exacerbation; J01.90 Acute sinusitis, unspecified; I69.920 Aphasia following unspecified cerebrovascular disease; C22.9 Malignant neoplasm of liver, not specified as primary or secondary; M62.838 Other muscle spasm; E78.2 Mixed hyperlipidemia; I10 Essential (primary) hypertension; N39.0 Urinary tract infection, site not specified; B95.2 Enterococcus as the cause of diseases classified elsewhere; E11.65 Type 2 diabetes mellitus with hyperglycemia; R19.7 Diarrhea, unspecified; R40.4 Transient alteration of awareness
CPT/HCPCS: 36415; 36556; 36600; 71010; 71045; 74000; 74018; 80048; 80053; 81001; 82270; 82607; 82728; 82746; 82803; 83540; 83735; 84132; 84466; 85025; 86850; 86900; 86901; 86922; 87040; 87086; 87088; 87186; 92507; 92523; 92610; 93005; 94640; 94760; 96365; 97162; 97530; 99284; A4216; A4222; P9016; G0378; J0400; J1200; J1750; J1815; J1956; J2543; J2920; J3475; J3480; J3490; J7030; J7040; J7050; J7620

== ENCOUNTER 2019-06-08 18:12 | Observation (INO) ==
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
[2019-06-08 19:09] LABS: BASOPHILS # (AUTO) 0.1 X10^3/uL (0.0-0.1); BASOPHILS % (AUTO) 0.7 % (0.2-1.0); EOSINOPHILS # (AUTO) 0.4 x10^3/uL (0.0-0.2); EOSINOPHILS % (AUTO) 3.3 % (0.9-2.9); HEMATOCRIT 40.4 % (36.0-47.0); HEMOGLOBIN 13.4 g/dL (12.0-16.0); LYMPHOCYTES # (AUTO) 5.1 X10^3/uL (1.3-2.9); LYMPHOCYTES % (AUTO) 44.5 % (21.0-51.0); MEAN CORPUSCULAR HEMOGLOBIN 28.3 pg (27.0-34.0); MEAN CORPUSCULAR HGB CONC 33.3 g/dL (33.0-35.0); MEAN PLATELET VOLUME 7.9 fL (7.4-11.0); MONOCYTES # (AUTO) 0.5 x10^3/uL (0.3-0.8); MONOCYTES % (AUTO) 4.5 % (0.0-13.0); NEUTROPHILS # (AUTO) 5.3 x10^3/uL (2.2-4.8); PLATELET COUNT 277 X10^3/uL (150.0-450.0); RED BLOOD COUNT 4.75 X10^6/uL (3.5-5.4); RED CELL DISTRIBUTION WIDTH 17.3 % (11.6-16.5); WHITE BLOOD COUNT 11.3 X10^3/uL (3.6-10.0)
[2019-06-08 19:12] LABS: ALANINE AMINOTRANSFERASE 63 Units/L (12-78); ALBUMIN 3.9 g/dL (3.4-5.0); ALKALINE PHOSPHATASE 120 Units/L (46-116); ASPARTATE AMINO TRANSFERASE 33 Units/L (15-37); BLOOD UREA NITROGEN 34 mg/dL (7-18); CALCIUM 9.6 mg/dL (8.5-10.1); CHLORIDE 101 mmol/L (98-107); COR NA(FOR HYPERGLY) 142 mmol/L (136-145); CREATININE 1.34 mg/dL (0.55-1.02); SODIUM 139 mmol/L (136-145); TOTAL PROTEIN 8.4 g/dL (6.4-8.2); eGFR NON BLACK RACES 43 (>60)
--- NOTE | 2019-06-08 19:36 | CT ---
CT HEAD WITHOUT CONTRAST CLINICAL HISTORY: 54-year-old female, unresponsive. COMPARISON: CT head 05/12/2019. TECHNIQUE: Multiple, non-contrasted axial CT images were obtained from the skull base to the cranial vertex. Coronal and sagittal reformats were performed. Dose reduction techniques including Automated Exposure Control (AEC) and adjustment of mA and kV were utilized. FINDINGS: There are no abnormal intra- or extra-axial fluid collections, midline shift, or mass effect. Palm-white differentiation is normal. Global cortical involutional changes are present that are advanced for the patient's stated age. Chronic large left MCA distribution infarction involving the frontotemporal lobes with associated large volume encephalomalacia with mild ex vacuo dilatation of the lateral ventricular system. Periventricular and supraventricular white matter hypodensity is present that is nonspecific in appearance, but most likely to represent microvascular ischemic changes. Atherosclerotic vascular calcification is present within the carotid siphons and distal vertebral arteries. The imaged paranasal sinuses, mastoid air cells, and tympanic spaces are clear. IMPRESSION: 1. No definite evidence of an acute intracranial process. If clinical concern persists for acute stroke and it would alter patient management, consider MRI/MRA brain. 2. Large chronic left MCA distribution infarction with encephalomalacia as above. 3. Moderate microvascular white matter ischemic changes, with associated volume loss. Reported By:
[2019-06-08 19:50] LABS: CKMB % 2.6 % (<4); CREATINE KINASE 38 Units/L (26-192); CREATINE KINASE MB < 1.0 ng/mL (0-4.0); TROPONIN I < 0.02 ng/mL (0-1.5)
--- NOTE | 2019-06-08 20:25 | RAD ---
Chest, 1 view Indication: Unresponsive Comparison: 01/27/2018 Findings: There is decreased depth of inspiration. Accounting for this, the lungs are grossly clear. No significant pleural effusion or pneumothorax. The cardiac silhouette is unchanged, accounting for differences in lung volumes. Impression: No acute chest process. Reported By:
[2019-06-08] MEDS ORDERED: ZOFRAN INJ 4 MG VIAL IVP ONE (21:12)
[2019-06-08] MEDS ORDERED: NS 100 ML IV 100 ML IV ONE (21:49)
[2019-06-08] MEDS ORDERED: CEREBYX INJ ONE (21:49)
[2019-06-08] MEDS ORDERED: ZOFRAN INJ 4 MG VIAL ONE (21:50)
[2019-06-08] MEDS: CEREBYX INJ 1,000 MG in NS 50 ML IV 50 ML IV SCH (21:59)
[2019-06-08] MEDS ORDERED: LOMOTIL PO PRN (22:44)
[2019-06-08] MEDS ORDERED: PATIENT'S HOME MEDICATION (Melatonin 5 MG) PO PRN (22:44)
[2019-06-08] MEDS ORDERED: PATIENT'S HOME MEDICATION (Albuterol Sulfate 2 PUFF) IN PRN (22:44)
[2019-06-08] MEDS ORDERED: PROVENTIL NEB TX 0.083% 2.5MG/ 3ML NEB PRN (23:22)
[2019-06-09] MEDS: NS 1000 ML 1,000 ML IV SCH ×2 (00:33→12:36)
[2019-06-09] MEDS: ROXICODONE TAB 5 MG PO SCH ×4 (00:48→21:34)
[2019-06-09 00:53] LABS: BILIRUBIN,URINE NEGATIVE (NEGATIVE); BLOOD/HEMOGLOBIN,URINE 2+ (NEGATIVE); GLUCOSE, URINE NEGATIVE (NEGATIVE); KETONES,URINE NEGATIVE (NEGATIVE); LEUKOCYTE ESTERASE ,URINE NEGATIVE (NEGATIVE); NITRITES,URINE NEGATIVE (NEGATIVE); PROTEIN,URINE NEGATIVE (NEGATIVE); UROBILINOGEN,URINE 1+ (NORMAL)
[2019-06-09 01:17] LABS: APPEARANCE,URINE CLEAR (CLEAR); COLOR,URINE YELLOW (YELLOW)
[2019-06-09 01:18] LABS: BACTERIA,URINE NEGATIVE /HPF (NEGATIVE); RBC,URINE 0-2 /HPF (0-3); SQUAMOUS EPITHELIAL CELL,UR RARE /HPF (NEGATIVE)
[2019-06-09 01:59] VITALS: BMI 22.1
[2019-06-09] MEDS: DILANTIN PO SCH ×3 (05:07→21:37)
[2019-06-09] MEDS ORDERED: OXYCODONE 10 MG PO SCH (06:00)
[2019-06-09] MEDS ORDERED: [UNRECOGNIZED DRUG - OTHER] XX SCH (06:30)
[2019-06-09 06:58] LABS: BASOPHILS % (AUTO) 0.6 % (0.2-1.0); EOSINOPHILS # (AUTO) 0.3 x10^3/uL (0.0-0.2); EOSINOPHILS % (AUTO) 3.7 % (0.9-2.9); HEMATOCRIT 35.7 % (36.0-47.0); HEMOGLOBIN 12.4 g/dL (12.0-16.0); LYMPHOCYTES # (AUTO) 1.6 X10^3/uL (1.3-2.9); LYMPHOCYTES % (AUTO) 20.2 % (21.0-51.0); MEAN CORPUSCULAR HEMOGLOBIN 28.7 pg (27.0-34.0); MEAN CORPUSCULAR HGB CONC 34.6 g/dL (33.0-35.0); MEAN CORPUSCULAR VOLUME 82.9 fL (80.0-100.0); MEAN PLATELET VOLUME 7.8 fL (7.4-11.0); MONOCYTES # (AUTO) 0.4 x10^3/uL (0.3-0.8); MONOCYTES % (AUTO) 5.6 % (0.0-13.0); NEUTROPHILS # (AUTO) 5.6 x10^3/uL (2.2-4.8); NEUTROPHILS % (AUTO) 69.9 % (42.0-75.0); PLATELET COUNT 182 X10^3/uL (150.0-450.0); RED BLOOD COUNT 4.31 X10^6/uL (3.5-5.4); RED CELL DISTRIBUTION WIDTH 17.5 % (11.6-16.5)
[2019-06-09 07:19] LABS: ALANINE AMINOTRANSFERASE 47 Units/L (12-78); ALBUMIN 3.6 g/dL (3.4-5.0); ALKALINE PHOSPHATASE 98 Units/L (46-116); ASPARTATE AMINO TRANSFERASE 24 Units/L (15-37); BLOOD UREA NITROGEN 29 mg/dL (7-18); CALCIUM 9.2 mg/dL (8.5-10.1); CARBON DIOXIDE 26.2 mmol/L (21-32); CHLORIDE 102 mmol/L (98-107); CKMB % 2.6 % (<4); COR NA(FOR HYPERGLY) 140 mmol/L (136-145); CREATINE KINASE 39 Units/L (26-192); CREATINE KINASE MB < 1.0 ng/mL (0-4.0); CREATININE 0.89 mg/dL (0.55-1.02); MAGNESIUM 1.7 mg/dL (1.7-2.9); SODIUM 139 mmol/L (136-145); TOTAL PROTEIN 7.5 g/dL (6.4-8.2); TROPONIN I 0.03 ng/mL (0-1.5); eGFR NON BLACK RACES > 60 (>60)
[2019-06-09] MEDS ORDERED: ZOLOFT PO ONE (08:45)
[2019-06-09] MEDS: FLONASE NASAL SPRAY ENOSTRIL SCH ×2 (08:59→21:36)
[2019-06-09] MEDS ORDERED: MULTIVIT WITH MIN FOLIC ACID PO SCH (09:00)
[2019-06-09] MEDS: LOPRESSOR TAB 25 MG PO SCH (09:00)
[2019-06-09] MEDS: LIPITOR TAB 40 MG PO SCH (09:00)
[2019-06-09] MEDS: ZESTRIL TAB 10 MG PO SCH (09:00)
[2019-06-09] MEDS: BRILINTA PO SCH (09:00)
[2019-06-09] MEDS: PROTONIX TAB 40 MG PO SCH (09:00)
[2019-06-09] MEDS: ZOLOFT PO SCH (09:01)
[2019-06-09] MEDS: ZETIA TAB 10 MG PO SCH (09:01)
[2019-06-09] MEDS: ABILIFY PO SCH (09:42)
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
[2019-06-09 12:32] LABS: CKMB % 3.2 % (<4); CREATINE KINASE 31 Units/L (26-192); CREATINE KINASE MB < 1.0 ng/mL (0-4.0); TROPONIN I < 0.02 ng/mL (0-1.5)
[2019-06-09] MEDS ORDERED: MIRAPEX TAB 0.25 MG PO SCH (21:00)
[2019-06-09] MEDS ORDERED: ZANAFLEX PO SCH (21:00)
[2019-06-09] MEDS: CEREBYX INJ 1,000 MG in NS 50 ML IV 50 ML IV SCH (21:46)
[2019-06-10] MEDS: NS 1000 ML 1,000 ML IV SCH ×2 (04:34)
[2019-06-10] MEDS: ROXICODONE TAB 5 MG PO SCH (05:43)
[2019-06-10] MEDS: DILANTIN PO SCH (05:43)
[2019-06-10 06:48] LABS: BASOPHILS % (AUTO) 0.4 % (0.2-1.0); EOSINOPHILS # (AUTO) 0.2 x10^3/uL (0.0-0.2); EOSINOPHILS % (AUTO) 2.9 % (0.9-2.9); HEMATOCRIT 36.4 % (36.0-47.0); HEMOGLOBIN 12.5 g/dL (12.0-16.0); LYMPHOCYTES # (AUTO) 1.8 X10^3/uL (1.3-2.9); LYMPHOCYTES % (AUTO) 24.8 % (21.0-51.0); MEAN CORPUSCULAR HEMOGLOBIN 28.6 pg (27.0-34.0); MEAN CORPUSCULAR HGB CONC 34.3 g/dL (33.0-35.0); MEAN CORPUSCULAR VOLUME 83.5 fL (80.0-100.0); MEAN PLATELET VOLUME 7.8 fL (7.4-11.0); MONOCYTES # (AUTO) 0.4 x10^3/uL (0.3-0.8); MONOCYTES % (AUTO) 5.2 % (0.0-13.0); NEUTROPHILS # (AUTO) 4.9 x10^3/uL (2.2-4.8); NEUTROPHILS % (AUTO) 66.7 % (42.0-75.0); PLATELET COUNT 183 X10^3/uL (150.0-450.0); RED BLOOD COUNT 4.36 X10^6/uL (3.5-5.4); RED CELL DISTRIBUTION WIDTH 17.4 % (11.6-16.5); WHITE BLOOD COUNT 7.3 X10^3/uL (3.6-10.0)
[2019-06-10 07:03] LABS: ALANINE AMINOTRANSFERASE 38 Units/L (12-78); ALBUMIN 3.7 g/dL (3.4-5.0); ALKALINE PHOSPHATASE 109 Units/L (46-116); ASPARTATE AMINO TRANSFERASE 20 Units/L (15-37); BLOOD UREA NITROGEN 24 mg/dL (7-18); CALCIUM 9.5 mg/dL (8.5-10.1); CARBON DIOXIDE 24.9 mmol/L (21-32); CHLORIDE 103 mmol/L (98-107); COR NA(FOR HYPERGLY) 144 mmol/L (136-145); CREATININE 0.85 mg/dL (0.55-1.02); SODIUM 142 mmol/L (136-145); TOTAL PROTEIN 7.6 g/dL (6.4-8.2); eGFR NON BLACK RACES > 60 (>60)
[2019-06-10] MEDS ORDERED: ZOLOFT PO ONE (08:44)
[2019-06-10] MEDS: ZESTRIL TAB 10 MG PO SCH (08:47)
[2019-06-10] MEDS: LIPITOR TAB 40 MG PO SCH (08:47)
[2019-06-10] MEDS: LOPRESSOR TAB 25 MG PO SCH (08:47)
[2019-06-10] MEDS: ABILIFY PO SCH (08:47)
[2019-06-10] MEDS: BRILINTA PO SCH (08:47)
[2019-06-10] MEDS: ZETIA TAB 10 MG PO SCH (08:48)
[2019-06-10] MEDS: PROTONIX TAB 40 MG PO SCH (08:48)
[2019-06-10] MEDS: ZOLOFT PO SCH (08:48)
[2019-06-10] MEDS: FLONASE NASAL SPRAY ENOSTRIL SCH (08:53)
[2019-06-10 12:07] VITALS: BP 122/59
== END 2019-06-10 13:00 ==
LOC: SUPCPDRO → ER 18:12 → ICU 18:12
PROVIDERS: ADMIT Internal Medicine; ATTEND Internal Medicine
DX: I69.320 Aphasia following cerebral infarction; I25.10 Atherosclerotic heart disease of native coronary artery without angina pectoris; I10 Essential (primary) hypertension; G93.89 Other specified disorders of brain; C22.9 Malignant neoplasm of liver, not specified as primary or secondary; I69.398 Other sequelae of cerebral infarction; F41.8 Other specified anxiety disorders; J44.9 Chronic obstructive pulmonary disease, unspecified; R26.89 Other abnormalities of gait and mobility; G40.909 Epilepsy, unspecified, not intractable, without status epilepticus; R94.31 Abnormal electrocardiogram [ECG] [EKG]; E11.65 Type 2 diabetes mellitus with hyperglycemia
CPT/HCPCS: 36415; 70450; 71010; 71045; 80053; 80185; 81001; 82550; 82553; 83735; 84484; 85025; 92523; 93005; 94640; 96365; 96374; 96375; 97162; 97167; 99284; A4222; S0078; G0378; J0400; J2405; J7030; J7050; J7613

== ENCOUNTER 2020-09-15 14:58 | Observation (INO) ==
--- NOTE | 2020-09-15 15:06 | DR.SEIZA ---
HPI Time Seen Time Seen by Provider: 09/15/20 15:05 HPI Comment HPI Comment: PATIENT IS 55YR OLD FEMALE [facility] WITH REPEATED SEIZURE AND APNEIC SPELLS NOTED BEFORE COMING. HAVE HAD SEIZURES AFTER CVA. DENIES TRAUMA. HISTORY PER [facility]ENIOR [facility]ARE STAFF. Complaints Chief Complaint Doctors Comments: SEIZURE. Reviewed Nurses Notes Reviewed: Yes Source History Provided: [facility] Mode of Arrival Mode of Arrival: Stretcher Duration Since Onset: Intermittent Duration: Minutes Quality Quality: Tonic-clonic Location Location: Generalized Context During Seizure: LOC Immediately After Seizure: Confusion History of:: Seizure Disorder Medication Compliance: Yes Associated Signs and Symptoms Associated Signs and Symptoms:: None Other History Other History: PREVIOUS HISTORYOF SEIZURE. PMH PMH Past Medical History: COPD, CVA, Depression, Diabetes, Hypertension and Seizures Past Surgical History: Yes Surgical History: Angioplasty/Stents, Carotid Endarterectomy and Cholecystectomy Family History Family Medical History: Diabetes Mellitus, Cancer and MA Social History Do you use any recreational Drugs:: No ROS Review of Systems Constitutional: See HPI, Weakness and Fatigue; negative Fever Eyes: See HPI and Photophobia ENTM: See HPI and Nose Congestion; negative Nose Discharge Respiratoy: See HPI, Non-Productive Cough and Short of Breath; negative Wheezing Cardiovascular: No Symptoms Reported and See HPI; negative Edema and Palpitations Gastrointestinal/Abdominal: No Symptoms Reported, See HPI and Other (NO LOSS OF BOWEL OR BLADDER FUNCTION.) Genitourinary: No Symptoms Reported and See HPI Neurological: No Symptoms Reported, See HPI, Seizure and Weakness Musculoskeletal: See HPI and Muscle Pain Integumentary: No Symptoms Reported and See HPI; negative Change in Color, Rash and Juandice Hematologic/Lymphatic: No Symptoms Reported and See HPI; negative Easy Bruising and Swollen Glands Endocrine: No Symptoms Reported and See HPI; negative Increased Thirst and Increased Urine Psychiatric: No Symptoms Reported and See HPI All Other Systems: Reviewed and Negative PE Vital Signs Vitals: Temperature 99.4 F Pulse Rate 90 Respiratory Rate 31 Blood Pressure [Left Arm] 154/72 Blood Pressure 143/67 O2 Sat by Pulse Oximetry 95 General Limitations: No Limitations General Appearance: Alert and In No Apparent Distress Head Head Exam: Normal Inspection Head Exam Physical: Other (NONE REPORTED.) Eyes Eye exam: Normal Appearance and PERRL; negative Scleral Icterus and Conjunctival Injection Eyelids: Normal Inspection: Bilateral Pupils: Regular, Round: Bilateral Sclera/Conjunctival: Normal Inspection: Bilateral ENT ENT Exam: Normal Exam Mouth Exam: Normal Inspection; negative Lip Swelling and Tongue Swelling Neck Neck Exam: Normal Inspection and Trachea Midline; negative Tenderness and Lymphadenopathy Chest Chest Inspection: Normal Inspection and Symmetric Chest Wall Rise; negative T enderness Respiratory Respiratory Exam: Normal Lung Sounds Bilat; negative Accessory Muscle Use, Chest Wall Tenderness and Respiratory Distress Respiratory Exam: Bilateral: Clear to Auscultation Cardiovascular Cardiovascular Exam: Regular Rate, Normal Rhythm and Normal Heart Sounds; negative Systolic Murmur and Diastolic Murmur Abdominal Exam Abdominal Exam: Normal Inspection, Normal Bowel Sounds and Soft; negative Tenderness Extremities Extremities Exam: Normal Inspection and Normal Capillary Refill; negative Tenderness, Edema and Calf Tenderness Back Back Exam: Normal Inspection; negative (R) CVA Tenderness and (L) CVA Tenderness Neurologic Neurological Exam: Alert, Oriented X3 and CN II-XII Intact; negative Motor Sensory Deficit Patient Oriented To: Person, Place and Time Speech: Fluid Speech Cranial Nerve Exam: EOM Function (II, III, IV, ): Normal, Facial Sensation (V): Normal, Facial Palsy (VII): Normal, Gag reflex (XI): Normal and Tongue Deviation: Normal Motor Strength - LUE: 5/5 Motor Strength - RUE: 5/5 Motor Strength - LLE: 5/5 Motor Strength - RLE: 5/5 Psychiatric Psychiatric Exam: Normal Affect and Normal Mood Skin Skin Exam: Warm, Dry, Intact and Normal Color MDM Additional Information Obtained Additional Information Obtained From: Old Records Differential Diagnosis Seizure due to:: CVA/TIA, Hypoclacemia, Hypoglycemia, Hyponatremia and Mass lesion Differential Diagnosis Comment: SEIZURE. COURSE Treatment Treatment: SEE ORDERS. ATIVAN, 2MG IV IN ER. SEIZURE IMPROVED. CEREBRYX 1GM IVPB IN ER. WILL ADMIT TO HOSPITAL FOR OBSERVATION FOR REPEATED SEIZURE. Consultation Consultation Comments: DISCUSSED PATIENT WITH DR. MORTENSEN. HE WILL ADMIT PATIENT. Education/Counseling Education/Counseling: Patient Educated On: Diagnosis and Needs for Follow Up ROR Labs Reviewed Laboratory Results Reviewed?: Yes Result Diagrams: 09/16/20 05:43 09/16/20 05:43 Laboratory: WBC 8.9 X10^3/uL (3.6-10.0) 09/15/20 16:10 RBC 4.16 X10^6/uL (3.5-5.4) 09/15/20 16:10 Hgb 12.3 g/dL (12.0-16.0) 09/15/20 16:10 Hct 36.2 % (36.0-47.0) 09/15/20 16:10 MCV 87.0 fL (80.0-100.0) 09/15/20 16:10 MCH 29.4 pg (27.0-34.0) 09/15/20 16:10 MCHC 33.8 g/dL (33.0-35.0) 09/15/20 16:10 RDW 15.0 % (11.6-16.5) 09/15/20 16:10 Plt Count 221 X10^3/uL (150.0-450.0) 09/15/20 16:10 MPV 7.6 fL (7.4-11.0) 09/15/20 16:10 Neut % (Auto) 85.4 % (42.0-75.0) H 09/15/20 16:10 Lymph % (Auto) 9.1 % (21.0-51.0) L 09/15/20 16:10 Gonzales % (Auto) 3.7 % (0.0-13.0) 09/15/20 16:10 Eos % (Auto) 1.5 % (0.9-2.9) 09/15/20 16:10 Baso % (Auto) 0.3 % (0.2-1.0) 09/15/20 16:10 Neut # (Auto) 7.6 x10^3/uL (2.2-4.8) H 09/15/20 16:10 Lymph # (Auto) 0.8 X10^3/uL (1.3-2.9) L 09/15/20 16:10 Gonzales # (Auto) 0.3 x10^3/uL (0.3-0.8) 09/15/20 16:10 Eos # (Auto) 0.1 x10^3/uL (0.0-0.2) 09/15/20 16:10 Baso # (Auto) 0.0 X10^3/uL (0.0-0.1) 09/15/20 16:10 Absolute Nucleated RBC 0.2 /100WBC 09/15/20 16:10 PT 13.5 SECONDS (11.8-14.3) 09/15/20 16:10 INR Target Range - 09/15/20 16:10 INR 1.06 (0.8-1.3) 09/15/20 16:10 APTT 25.5 SECONDS (22.9-36.5) 09/15/20 16:10 PTT Comment - 09/15/20 16:10 D-Dimer 0.79 ug/ml (0.0-0.57) H* 09/15/20 16:10 Sodium 141 mmol/L (136-145) 09/15/20 16:10 Corrected Sodium 145 mmol/L (136-145) 09/15/20 16:10 Potassium 4.4 mmol/L (3.5-5.1) 09/15/20 16:10 Chloride 103 mmol/L (98-107) 09/15/20 16:10 Carbon Dioxide 26.7 mmol/L (21-32) 09/15/20 16:10 BUN 22 mg/dL (7-18) H 09/15/20 16:10 Creatinine 1.21 mg/dL (0.55-1.02) H 09/15/20 16:10 Est GFR (MDRD) Af Amer 59 (>60) 09/15/20 16:10 Est GFR (MDRD) Non-Af 49 (>60) L 09/15/20 16:10 Glucose 246 mg/dL (65-99) H 09/15/20 16:10 Calcium 8.6 mg/dL (8.5-10.1) 09/15/20 16:10 Corrected Calcium TNP 09/15/20 16:10 Ferritin 368 ng/mL (8-252) H 09/15/20 16:10 Total Bilirubin 0.20 mg/dL (0.2-1.0) 09/15/20 16:10 AST 41 Units/L (15-37) H 09/15/20 16:10 ALT 61 Units/L (12-78) 09/15/20 16:10 Alkaline Phosphatase 236 Units/L (46-116) H 09/15/20 16:10 C-Reactive Protein 16.00 mg/L (0-3.0) H 09/15/20 16:10 Total Protein 7.5 g/dL (6.4-8.2) 09/15/20 16:10 Albumin 3.6 g/dL (3.4-5.0) 09/15/20 16:10 Globulin 3.9 g/dL (2.5-4.5) 09/15/20 16:10 Albumin/Globulin Ratio 0.9 Ratio (1.1-2.1) L 09/15/20 16:10 Phenytoin 8.0 ug/mL (10-20) L 09/15/20 16:10 XRAY XRAY Interpreted by: Radiologist (REPORTS NOTED AND DISCUSSED WITH PATIENT.) and Self EKG Rate: 80 [place]: Normal Rhythm: NSR Block: None Hypertrophy: None ST: Normal Opioid Opioid Risk Tool Age (Akil box if 16-45): No History of Preadolescent Sexual Abuse: No Total: 0 Total Score Risk Category: Low Risk Copyright: Jensen HUERTAS predicting aberrant behaviors Diagnosis Discharge Problem: Seizure, COVID-19 virus infection Instructions Instructions: Chronic Obstructive Pulmonary Disease, [id number] Seizure, Adult Cough, Adult
[2020-09-15 15:33] VITALS: BMI 27.6
[2020-09-15 16:22] LABS: BASOPHILS % (AUTO) 0.3 % (0.2-1.0); EOSINOPHILS # (AUTO) 0.1 x10^3/uL (0.0-0.2); EOSINOPHILS % (AUTO) 1.5 % (0.9-2.9); HEMATOCRIT 36.2 % (36.0-47.0); HEMOGLOBIN 12.3 g/dL (12.0-16.0); LYMPHOCYTES # (AUTO) 0.8 X10^3/uL (1.3-2.9); LYMPHOCYTES % (AUTO) 9.1 % (21.0-51.0); MEAN CORPUSCULAR HEMOGLOBIN 29.4 pg (27.0-34.0); MEAN CORPUSCULAR HGB CONC 33.8 g/dL (33.0-35.0); MEAN PLATELET VOLUME 7.6 fL (7.4-11.0); MONOCYTES # (AUTO) 0.3 x10^3/uL (0.3-0.8); MONOCYTES % (AUTO) 3.7 % (0.0-13.0); NEUTROPHILS # (AUTO) 7.6 x10^3/uL (2.2-4.8); NEUTROPHILS % (AUTO) 85.4 % (42.0-75.0); PLATELET COUNT 221 X10^3/uL (150.0-450.0); RED BLOOD COUNT 4.16 X10^6/uL (3.5-5.4); WHITE BLOOD COUNT 8.9 X10^3/uL (3.6-10.0)
[2020-09-15 16:37] LABS: ALANINE AMINOTRANSFERASE 61 Units/L (12-78); ALBUMIN 3.6 g/dL (3.4-5.0); ALKALINE PHOSPHATASE 236 Units/L (46-116); ASPARTATE AMINO TRANSFERASE 41 Units/L (15-37); BLOOD UREA NITROGEN 22 mg/dL (7-18); CALCIUM 8.6 mg/dL (8.5-10.1); CARBON DIOXIDE 26.7 mmol/L (21-32); CHLORIDE 103 mmol/L (98-107); COR NA(FOR HYPERGLY) 145 mmol/L (136-145); CREATININE 1.21 mg/dL (0.55-1.02); SODIUM 141 mmol/L (136-145); TOTAL PROTEIN 7.5 g/dL (6.4-8.2); eGFR NON BLACK RACES 49 (>60)
--- NOTE | 2020-09-15 16:40 | CT ---
HISTORYSeizureSTUDYCT brain without contrastCOMPARISONOctober 2019TECHNIQUEMultiple axial images of the brain were obtained from the skull base to the vertex [without] administration of IV contrast.Dose reduction techniques including Automated Exposure Control (AEC) and adjustment of mA and kV were utlized.FINDINGS[No acute intraparenchymal hemorrhage or mass can be identified.] [No extra-axial fluid collections are seen.] [No alteration in the attenuation of the brain parenchyma can be identified to suggest acute or subacute ischemic change.] An old left MCA territory infarct is noted along with mild small vessel ischemic changes expected dilatation of the left ventricular system. [Age-appropriate atrophic changes are noted. [Chronic appearing stable sphenoidal sinus disease is noted.IMPRESSION[No acute intracranial process can be identified.]Electronically signed by: RENZO MCCULLOUGH (Sep 15, 2020 16:39:16)
--- NOTE | 2020-09-15 16:40 | RAD ---
HISTORYTONH STAFF STATES PT HAD A SEIZURE AND WAS UNABLE TO OBTAIN VITAL SIGNS ON PATIENT. PT IS NOTED TO BE COVID POSITIVE ON THIS PAST FRIDAY. TONH STATES PT STARTED SHAKING AND HAVING APNEA WHICH LASTED FOR A FEW MINS. THEN WENT POST ICTAL.STUDYCHEST, 1 [id number]/19/2021FINDINGSThe trachea is midline. Borderline heart size and mediastinum within normal limits. There is no evidence of pleural effusions or pneumothorax. There is no dominant alveolar infiltrates. There is unchanged mild increase of the interstitial marking in the bases.IMPRESSIONNo new infiltrates. Mild increase of the interstitial markings in the bases and in the left midlung zoneElectronically signed by: Deanne Joshi (Sep 15, 2020 16:39:36)
[2020-09-15] MEDS ORDERED: CEREBYX INJ IVP ONE (17:01)
[2020-09-15] MEDS ORDERED: ATIVAN INJ 2 MG VIAL IVP ONE (17:16)
[2020-09-15] MEDS ORDERED: ATIVAN INJ 2 MG VIAL ONE (17:16)
[2020-09-15] MEDS ORDERED: NS 250 ML IV 250 ML IV ONE (17:19)
[2020-09-15] MEDS ORDERED: NS 100 ML IV 100 ML IV ONE (17:19)
[2020-09-15] MEDS ORDERED: CEREBYX INJ ONE (17:20)
[2020-09-15] MEDS ORDERED: ZITHROMAX TAB 250 MG PO SCH (20:17)
[2020-09-15] MEDS ORDERED: NS 1000 ML 1,000 ML IV SCH (20:17)
[2020-09-15] MEDS ORDERED: PEPCID TAB 20 MG PO SCH (21:00)
[2020-09-15] MEDS ORDERED: ZETIA TAB 10 MG PO SCH (21:00)
[2020-09-15] MEDS ORDERED: ENOXAPARIN 30 MG/0.3 ML SUBCUT SCH (21:00)
[2020-09-15] MEDS ORDERED: ALLEGRA PO SCH (21:00)
[2020-09-15] MEDS ORDERED: PHARMACY CONSULT LTC MEDICATIONS XX SCH (21:00)
[2020-09-15 22:07] LABS: ABG BASE EXCESS 4.5 mmol/L (-2.0-2.0); ABG HCO3 29.2 mmol/L (22-26)
[2020-09-15 22:08] LABS: ABG ALLEN TEST POS
[2020-09-15] MEDS: LOVENOX INJ 30 MG SYR SC SCH (23:00)
[2020-09-16] MEDS: FLONASE NASAL SPRAY ENOSTRIL SCH ×2 (02:07→09:24)
[2020-09-16 04:11] LABS: ABG BASE EXCESS 6.4 mmol/L (-2.0-2.0)
[2020-09-16 04:12] LABS: ABG ALLEN TEST POS; ABG HCO3 32.3 mmol/L (22-26)
--- NOTE | 2020-09-16 06:34 | RAD ---
HISTORYSOBSTUDYAP [id number]/2021FINDINGSHeart size and contour are normal. The lungs are essentially clear and symmetrically inflated. There is no area of consolidation, pulmonary edema, pneumothorax or pleural fluid.IMPRESSIONNo change. No localized pulmonary or pleural abnormality demonstrated.Electronically signed by: REMINGTON ANDRADE (Sep 16, 2020 06:32:00)
[2020-09-16 06:35] LABS: ALANINE AMINOTRANSFERASE 47 Units/L (12-78); ALBUMIN 3.3 g/dL (3.4-5.0); ALKALINE PHOSPHATASE 194 Units/L (46-116); ASPARTATE AMINO TRANSFERASE 25 Units/L (15-37); BLOOD UREA NITROGEN 18 mg/dL (7-18); CALCIUM 8.9 mg/dL (8.5-10.1); CARBON DIOXIDE 30.7 mmol/L (21-32); CHLORIDE 106 mmol/L (98-107); CHOL/HDL RATIO 6.3 (0.0-5.0); CHOLESTEROL 213 mg/dL (0-200); COR CA(FOR HYPOALB) 9.5 mg/dL (8.5-10.1); COR NA(FOR HYPERGLY) 144 mmol/L (136-145); CREATININE 0.93 mg/dL (0.55-1.02); HDL CHOLESTEROL 34 mg/dL (40-60); MAGNESIUM 1.9 mg/dL (1.7-2.9); SODIUM 143 mmol/L (136-145); TOTAL PROTEIN 7.2 g/dL (6.4-8.2); TRIGLYCERIDES 234 mg/dL (0-150); eGFR NON BLACK RACES > 60 (>60)
[2020-09-16 06:55] LABS: BASOPHILS % (AUTO) 0.4 % (0.2-1.0); EOSINOPHILS # (AUTO) 0.2 x10^3/uL (0.0-0.2); EOSINOPHILS % (AUTO) 2.6 % (0.9-2.9); HEMATOCRIT 33.9 % (36.0-47.0); HEMOGLOBIN 11.5 g/dL (12.0-16.0); LYMPHOCYTES # (AUTO) 1.8 X10^3/uL (1.3-2.9); LYMPHOCYTES % (AUTO) 23.9 % (21.0-51.0); MEAN CORPUSCULAR HEMOGLOBIN 29.1 pg (27.0-34.0); MEAN CORPUSCULAR HGB CONC 33.9 g/dL (33.0-35.0); MEAN CORPUSCULAR VOLUME 85.9 fL (80.0-100.0); MEAN PLATELET VOLUME 7.7 fL (7.4-11.0); MONOCYTES # (AUTO) 0.5 x10^3/uL (0.3-0.8); MONOCYTES % (AUTO) 6.3 % (0.0-13.0); NEUTROPHILS % (AUTO) 66.8 % (42.0-75.0); PLATELET COUNT 193 X10^3/uL (150.0-450.0); RED BLOOD COUNT 3.95 X10^6/uL (3.5-5.4); RED CELL DISTRIBUTION WIDTH 14.8 % (11.6-16.5); WHITE BLOOD COUNT 7.5 X10^3/uL (3.6-10.0)
[2020-09-16 08:29] LABS: BILIRUBIN,URINE NEGATIVE (NEGATIVE); BLOOD/HEMOGLOBIN,URINE 1+ (NEGATIVE); GLUCOSE, URINE NEGATIVE (NEGATIVE); KETONES,URINE NEGATIVE (NEGATIVE); LEUKOCYTE ESTERASE ,URINE 3+ (NEGATIVE); NITRITES,URINE POSITIVE (NEGATIVE); PROTEIN,URINE NEGATIVE (NEGATIVE); UROBILINOGEN,URINE NORMAL (NORMAL)
[2020-09-16 08:35] LABS: APPEARANCE,URINE HAZY (CLEAR); COLOR,URINE YELLOW (YELLOW)
[2020-09-16 08:36] LABS: BACTERIA,URINE 3+ /HPF (NEGATIVE); SQUAMOUS EPITHELIAL CELL,UR RARE /HPF (NEGATIVE)
[2020-09-16] MEDS ORDERED: VITAMIN C PO SCH (09:00)
[2020-09-16] MEDS ORDERED: BUSPAR PO SCH (09:00)
[2020-09-16] MEDS: LOVENOX INJ 30 MG SYR SC SCH (09:19)
[2020-09-16] MEDS ORDERED: KEPPRA TAB 500 MG PO ONE (10:32)
[2020-09-16 13:46] VITALS: BP 141/63
--- NOTE | 2020-10-26 10:19 | DR.CARTERS ---
Short Stay Summary - Admission Date Date of Admission: 09/15/20 - Discharge Date Discharge Date: 09/16/20 - Admission Diagnoses (1) Seizure Status: Acute (2) COVID-19 virus infection Status: Acute (3) Urinary tract infection Status: Acute - Hospital Course Hospital Course: IS A 55 YEAR OLD PATIENT OF . SHE IS A RESIDENT OF [facility]. SHE PRESENTED TO THE ER WITH STAFF REPORTING THAT SHE HAS HAD REPEATED SEIZURES AND PERIODS OF APNEA PRIOR TO ARRIVAL. PATIENT DOES HAVE A HISTORY OF SEIZURES, WHICH STARTED AFTER SHE HAD A CVA. STAFF DENIES TRAUMA. PATIENT HAS RESIDUAL GENERALIZED WEAKNESS AND SLURRED SPEECH. OTHER PMH INCLUDES COPD, DEPRESSION, DIABETES, HYPERTENSION, SEIZURES, ANGIOPLASTY/STENTS, CAROTID ENDARTERECTOMY, AND CHOLECYSTECTOMY. SHE ALSO TESTED POSITIVE FOR COVID-19 ON 09/07/20. ON ARRIVAL TO THE ER, PATIENT WAS NOTED TO BE LETHARGIC AND IN A POST- ICTAL STATE. SHE WOULD OPEN EYES, BUT WAS UNABLE TO FOLLOW COMMANDS AND DID NOT RESPOND VERBALLY. ON ARRIVAL, VITALS WERE 99.4-87-20-95%-151/67. LABS WERE OBTAINED. ABNORMAL LAB VALUES INCLUDED THE FOLLOWING: D-DIMER 0.79, BUN 22, CREATININE 1.21, GLUCOSE 246, FERRITIN 368, AST 41, ALK PHOS 236, CRP 16, PHENYTOIN 8.0. ABG REVEALED: PH 7.440, PC02 43, P02 103, HC03 29.2, 02 SAT 98, BASE EXCESS 4.5, A-A GRADIENT 43, FI02 28. A BRAIN CT WAS OBTAINED AND REVEALED: No acute intraparenchymal hemorrhage or mass can be identified. No extra-axial fluid collections are seen.No alteration in the attenuation of the brain parenchyma can be identified to suggest acute or subacute ischemic change. An old left MCA territory infarct is noted along with mild small vessel ischemic changes expected dilatation of the left ventricular system. Age-appropriate atrophic changes are noted. Chronic appearing stable sphenoidal sinus disease is noted. CHEST XRAY OBTAINED AND REVEALED: No new infiltrates. Mild increase of the interstitial markings in the bases and in the left midlung zone. EKG REVEALED: SINUS RHYTHM WITH HR 80. IN THE ER, SHE WAS GIVEN CEREBYX 500MG IV X 1 DOSE, ATIVAN 2MG IV X 1 DOSE. SHE WAS ADMITTED TO THE HOSPITAL FOR FURTHER EVALUATION AND TREATMENT OF REPEATED SEIZURES AND COVID-19. SHE WAS STARTED ON NORMAL SALINE AT 50 ML/HR, LOVENOX 30MG SC BID, HUMULIN R SLIDING SCALE, OTBS ACHS, AND HER HOME MEDICATIONS WERE RESUMED. OTHERWISE, WE PLANNED TO FOLLOW UP WITH AM LABS AND CONTINUE TO MONITOR. ON THE MORNING FOLLOWING ADMISSION, PATIENT IS ALERT AND ORIENTED, SITTING UP IN BED ON MORNING ROUNDS. SHE IS ABLE TO COMMUNICATE HER NAME AND TELLS US THAT SHE IS IN THE HOSPITAL. STAFF DENIES SEIZURES SINCE ADMISSION. SHE IS NOTED TO HAVE A NON-PRODUCTIVE COUGH THIS MORNING. ON EXAMINATION, HEART IS REGULAR IN RATE AND RHYTHM. BILATERAL LUNGS ARE NOTED WITH DIMINISHED LUNG SOUNDS THROUGHOUT. ABDOMEN IS ROUND, SOFT, AND NON-TENDER WITH NORMAL BOWEL SOUNDS NOTED IN ALL QUADRANTS. HER VITALS THIS MORNING ARE: 98.4-77-20-95%-125/60. LABS WERE OBTAINED. ABNORMAL LAB VALUES INCLUDE THE FOLLOWING: HGB 11.5, HCT 33.9, D-DIMER 0.63, GLUCOSE 127, FERRITIN 321, ALK PHOS 194, CRP 17.50, ALBUMIN 3.3, TRIGLYCERIDES 234, CHOLESTEROL 213, LDL 132, HDL 34. A URINALYSIS WAS OBTAINED AND REVEALED: WBC 10-20. RBC 3-5, LEUKOCYTES 3+, BACTERIA 3+, OCCULT BLOOD 1+, NITRITES POSITIVE. ABG REVEALED: PH 7.410, PC02 51, P02 86, HC03 32.3, 02 SAT 97, BASE EXCESS 6.4, A-A GRADIENT 21, FI02 24. URINE CULTURE PENDING. CHEST XRAY OBTAINED AND REVEALED: No change. No localized pulmonary or pleural abnormality demonstrated. WE PLANNED FOR DISCHARGE. INSTRUCTIONS FOR MEDICATIONS AND FOLLOW UP WERE DISCUSSED WITH [facility] STAFF. THEY VERBALIZED UNDERSTANDING OF ORDERS. SHE WAS GIVEN NEW PRESCRIPTIONS FOR KEPPRA 500MG PO BID AND MACROBID 100MG PO BID X 14 DAYS. SHE WAS DISCHARGED BACK TO THE [facility] IN STABLE CONDITION. TIME SPENT ON CLINCIAL ASSESSMENT, REVIEWING LABS AND IMAGING, DECISION MAKING, DOCUMENTATION, AND PREPARING DISCHARGE PAPERS WAS GREATER THAN 75 MINUTES. - Discharge Medications Discharge Medications: Home Medication List ascorbic acid (vitamin C) [Vitamin C] 500 mg PO DAILY 09/15/20 [History] azithromycin [Zithromax] 250 mg PO ONCE 09/15/20 [History] buspirone 5 mg PO DAILY 09/15/20 [History] enoxaparin [Lovenox] 30 mg SUBCUT BID 09/15/20 [History] ezetimibe [Zetia] 10 mg PO HS 09/15/20 [History] famotidine [Pepcid] 20 mg PO QHS 09/15/20 [History] fexofenadine [Julianna] 180 mg PO Q24H 09/15/20 [History] fluticasone propionate [Flonase] 1 spray INTRANASAL BID 09/15/20 [History] hydroxychloroquine [Plaquenil] 200 mg PO BID 09/15/20 [History] insulin regular human [Novolin R Regular U-100 Insuln] 0 sliding scale dose SUBCUT USEASDIRECTD 09/15/20 [History] multivitamin [Multi-Vitamin] 1 tab PO QAM 09/15/20 [History] phenytoin sodium 100 mg PO TID 09/15/20 [History] sertraline [Zoloft] 50 mg PO Q24H 09/15/20 [History] tizanidine [Zanaflex] 2 mg PO QHS 09/15/20 [History] zinc sulfate 1 mg PO DAILY 09/15/20 [History] levetiracetam [Keppra] 500 mg PO BID #60 tab 09/16/20 [Rx] nitrofurantoin monohyd/m-cryst [Macrobid] 100 mg PO BID #28 cap 09/16/20 [Rx] Prescriptions: levetiracetam [Keppra] Allan Amaya nitrofurantoin monohyd/m-cryst [Macrobid] Allan Amaya Risks, benefits, and alternatives of opioids discussed: Yes Prescription drug monitoring program results: PDMP was not reviewed - Discharge Plan Disposition: 03 [facility]FER SNF Condition: Stable Prescriptions: levetiracetam [Keppra] 500 mg PO BID #60 tab nitrofurantoin monohyd/m-cryst [Macrobid] 100 mg PO BID #28 cap - Follow up/Referrals Follow up/Referrals: MOJGAN MORTENSEN [Primary Care Provider] - 1 WEEK - Instructions Instructions: Chronic Obstructive Pulmonary Disease, [id number], Seizure, Adult, Cough, Adult Additional Instructions: RESUME DIET AND ACTIVITY
== END 2020-09-16 01:50 ==
LOC: ER 14:58 → MED/SURG 14:58
PROVIDERS: ADMIT Internal Medicine; ATTEND Internal Medicine
DX: R06.02 Shortness of breath; U07.1 COVID-19; Z79.899 Other long term (current) drug therapy; R79.89 Other specified abnormal findings of blood chemistry; B96.29 Other Escherichia coli [E. coli] as the cause of diseases classified elsewhere; R79.82 Elevated C-reactive protein (CRP); R94.4 Abnormal results of kidney function studies; I10 Essential (primary) hypertension; G40.909 Epilepsy, unspecified, not intractable, without status epilepticus; E11.65 Type 2 diabetes mellitus with hyperglycemia; J44.9 Chronic obstructive pulmonary disease, unspecified